=== PATIENT | male | born 1975 | race African-American/Black ===

== ENCOUNTER 2017-09-21 04:05 | Observation (INO) | payer MEDICAID ==
[~2017-09-21] VITALS: Ht 165.1 cm; Wt 76.8 kg
--- NOTE | ~2017-09-21 | HP ---
PATIENT: LB QUIJANO MEDICAL RECORD: [id number] ACCOUNT: [id number] LOCATION:[address] : 75 ADMISSION DATE: 09/21/17 HISTORY AND PHYSICAL EXAMINATION REASON FOR ADMISSION: Cough, congestion, and chest pain. HISTORY OF PRESENT ILLNESS: The patient is a 42-year-old -Bangl[place] male with no previous health issues. He states about 4 days ago while he was running he developed some pain in his anterior chest wall. This was followed by cough, congestion, and low-grade fever. He has had productive cough since that time of yellow-green sputum. He has some mild of breath on exertion. The pain lasted about 2 hours and went away, but now if he coughs or lifts he has pain in the left lateral chest wall as well. Denies hemoptysis, though he is a smoker. PAST MEDICAL HISTORY: Essentially negative. FAMILY HISTORY: Mother had a brain aneurysm and from hemorrhagic stroke. Father with hypertension. He is unsure of siblings' health. 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 He smokes marijuana recreationally. He said he has been moderate alcohol drinker; he will drink half a fifth at a time, but maybe once or twice a week. ALLERGIES: None known. MEDICATIONS: None. PAST SURGICAL HISTORY: Negative. REVIEW OF SYSTEMS: GENERAL: He has felt fatigued for the last 3 to 4 days with fever intermittently. He has had poor appetite. HEENT: No recent visual change, sinus congestion, sore throat, or hearing difficulty. RESPIRATORY: He has had cough productive of yellow-green sputum, no hemoptysis. He has had anterior chest wall pain on the left when he coughs. CARDIAC: He had one episode of exertional chest pain, none since. No prior history of exertional chest pain, hypertension, claudication, or edema. GASTROINTESTINAL: No nausea, vomiting, change in stools or blood per rectum. GENITOURINARY: He has had cystitis once in the past. No recent dysuria, nocturia, or SCDs. MUSCULOSKELETAL: Denies arthralgias or history of RA. GASTROINTESTINAL: No nausea, vomiting, change in stools or blood per rectum or history of hepatitis. INTEGUMENTARY: No rash or itching. PSYCHIATRIC: Denies depressed mood. PHYSICAL EXAMINATION: VITAL SIGNS: Blood pressure is 150/90, heart rate is 90 and regular, and temperature was 99 degrees Fahrenheit. HEENT: Normocephalic. Eyes are clear. NECK: Supple, without bruits or masses. CHEST: He has crackles in the bases. Faint expiratory wheezes in the upper HISTORY AND PHYSICAL [id number] LB QUIJANO lobes. HEART: Regular rate and rhythm without rub or murmur. ABDOMEN: Soft, nontender. GENITOURINARY: Deferred. EXTREMITIES: No CCE. SKIN: No obvious lesions. NEUROLOGIC: Oriented times 3. Cranial nerves intact. Gait is normal. LABORATORY DATA: White count 11,600 with normal differential and 13% monocytes. Flu A is positive. H&H is 16 and 43.5. Chemistry shows low potassium of 3.2, creatinine of 1.4, GFR 72, bilirubin of 1.84. Troponin 0.278 with normal CPK-MB and creatine kinase. Urinalysis, 4+ urobilinogen, otherwise negative. Urine drug screen is positive for THC. D-dimer is 2.17. IMAGING: Chest x-ray shows reticulonodular airspace disease bilaterally consistent with pneumonia or interstitial pulmonary edema. ASSESSMENT: 1. Probable community-acquired pneumonia. 2. Influenza A positivity. 3. Hypokalemia. 4. History of alcohol and drug use. 5. Atypical chest pain with elevated troponin. 6. Elevated D-dimer. PLAN: He is scheduled for CTA currently. We will culture blood and urine. Place on Levaquin, Tamiflu, and Zithromax at this time. Further workup pending clinical course. TRANSINT:[id number] Voice Confirmation ID: [id number] DOCUMENT ID: [id number] KAILEE MEEKS MD at 0749 CC: [id number] DICTATION DATE: 09/21/17817 BENEFITS CLERK: 09/21/17 1051 ADM IN [facility] [id number] [place] [address]
[2017-09-21 04:40] LABS: BASOPHILS 0.2 % (0-2); EOSINOPHILS 0.3 % (0-7); HEMATOCRIT 43.5 % (42.0-54.0); HEMOGLOBIN 16.2 g/dL (13.5-17.5); IMMATURE GRANULOCYTES 0.3 % (0-5); LYMPHOCYTES 21.9 % (15-50); MCH 31.5 pg (26.0-34.0); MCHC 37.2 g/dL (31.0-37.0); MCV 84.6 fL (80.0-100.0); MEAN PLATELET VOLUME 10.8 fL (7.4-10.4); MONOCYTES 13.4 % (2-11); NEUTROPHILS 63.9 % (40-80); PLATELET COUNT 214 10x3/uL (130-400); RBC 5.14 10x6/uL (4.20-6.10); RDW 12.1 % (11.5-14.5); WBC 11.6 10x3/uL (4.8-10.8)
[2017-09-21 05:06] LABS: ALBUMIN 3.1 g/dL (3.4-5.0); ALKALINE PHOSPHATASE 50 U/L (46-116); ALT (SGPT) 8 U/L (10-68); BILIRUBIN - TOTAL 1.84 mg/dL (0.2-1.3); CALC OSMOLALITY 279 mosm/kg (275-300); CALCIUM 8.8 mg/dL (8.5-10.1); CARBON DIOXIDE 26.5 mmol/L (21.0-32.0); CHLORIDE - SERUM 103 mmol/L (98-107); CREATININE - SERUM 1.4 mg/dL (0.6-1.3); GLUCOSE 93 mg/dL (74-106); POTASSIUM - SERUM 3.2 mmol/L (3.5-5.1); PROTEIN - SERUM 6.7 g/dL (6.4-8.2); SODIUM 140 mmol/L (136-145); UREA NITROGEN 15 mg/dL (7-18); eGFR NON AFRICAN AMERICAN 59 mL/min (90-120)
[2017-09-21 05:22] LABS: CKMB 0.6 U/L (0.0-3.6); CREATINE KINASE 159 UL (21-232)
[2017-09-21 05:24] LABS: TROPONIN-I 0.278 ng/mL (0.000-0.060)
[2017-09-21 05:32] LABS: APPEARANCE CLEAR (CLEAR); BILIRUBIN NEGATIVE (NEGATIVE); COLOR DK YELLOW (YELLOW); GLUCOSE NEGATIVE (NEGATIVE); KETONE NEGATIVE (NEGATIVE); NITRITE NEGATIVE (NEGATIVE); PROTEIN NEGATIVE (NEGATIVE); SPECIFIC GRAVITY 1.015 (1.005-1.020)
[2017-09-21 05:34] LABS: UDS - AMPHET NEGATIVE QUAL (NEGATIVE); UDS - BARB NEGATIVE QUAL (NEGATIVE); UDS - BENZO NEGATIVE QUAL (NEGATIVE); UDS - COCAINE NEGATIVE QUAL (NEGATIVE); UDS - OPIATE NEGATIVE QUAL (NEGATIVE); UDS - PCP NEGATIVE QUAL (NEGATIVE); UDS - THC POSITIVE QUAL (NEGATIVE)
[2017-09-21 11:04] LABS: CKMB 0.7 U/L (0.0-3.6); CREATINE KINASE 171 UL (21-232)
[2017-09-21 11:06] LABS: TROPONIN-I 0.253 ng/mL (0.000-0.060)
[2017-09-21 17:57] LABS: CKMB 0.8 U/L (0.0-3.6); CREATINE KINASE 143 UL (21-232)
[2017-09-21 17:59] LABS: TROPONIN-I 0.216 ng/mL (0.000-0.060)
[2017-09-21 19:31] VITALS: BP 155/83; Ht 165.1 cm; Wt 76.8 kg
[2017-09-21 23:42] LABS: CKMB 0.6 U/L (0.0-3.6); CREATINE KINASE 120 UL (21-232)
[2017-09-21 23:43] LABS: TROPONIN-I 0.253 ng/mL (0.000-0.060)
[2017-09-22 04:47] LABS: BASOPHILS 0.1 % (0-2); EOSINOPHILS 0.1 % (0-7); HEMATOCRIT 41.7 % (42.0-54.0); HEMOGLOBIN 15.2 g/dL (13.5-17.5); IMMATURE GRANULOCYTES 0.3 % (0-5); LYMPHOCYTES 21.5 % (15-50); MCH 30.8 pg (26.0-34.0); MCHC 36.5 g/dL (31.0-37.0); MCV 84.4 fL (80.0-100.0); MEAN PLATELET VOLUME 11.1 fL (7.4-10.4); MONOCYTES 14.6 % (2-11); NEUTROPHILS 63.4 % (40-80); PLATELET COUNT 220 10x3/uL (130-400); RBC 4.94 10x6/uL (4.20-6.10); RDW 12.1 % (11.5-14.5); WBC 9.3 10x3/uL (4.8-10.8)
[2017-09-22 05:11] LABS: ANION GAP 15.8 mmol/L (8-16); CALCIUM 7.9 mg/dL (8.5-10.1); CARBON DIOXIDE 21.6 mmol/L (21.0-32.0); CREATININE - SERUM 1.2 mg/dL (0.6-1.3); POTASSIUM - SERUM 3.4 mmol/L (3.5-5.1)
[2017-09-23 10:33] LABS: CALC OSMOLALITY 279 mosm/kg (275-300); CALCIUM 8.7 mg/dL (8.5-10.1); CARBON DIOXIDE 25.6 mmol/L (21.0-32.0); CHLORIDE - SERUM 107 mmol/L (98-107); GLUCOSE 88 mg/dL (74-106); POTASSIUM - SERUM 3.8 mmol/L (3.5-5.1); SODIUM 141 mmol/L (136-145); UREA NITROGEN 13 mg/dL (7-18); eGFR NON AFRICAN AMERICAN 87 mL/min (90-120)
[2017-09-23] MEDS ORDERED: TAMIFLU75 MG PO (14:57)
[2017-09-23] MEDS ORDERED: LEVAQUIN750 MG PO (14:57)
[2017-09-23] MEDS ORDERED: MUCINEX600 MG PO (14:58)
== END 2017-09-23 17:14 | disposition home or self-care (01) ==
LOC: D.ER 04:05 → D.M2 07:12 → OBSVTIME 07:12 → D.M2 09-23 17:14
PROVIDERS: Family Medicine
DX: J11.00 Influenza due to unidentified influenza virus with unspecified type of pneumonia (principal); E87.6 Hypokalemia

== ENCOUNTER 2018-01-01 06:43 | Inpatient (IN) | payer OTHER ==
[~2018-01-01] VITALS: Ht 165.1 cm; Wt 77.5 kg
--- NOTE | ~2018-01-01 | HEMODYNAMI ---
PATIENT:LB QUIJANO MEDICAL RECORD: [id number] : 75 LOCATION:[facility] D.2120 ADMISSION DATE: 01/01/18 Generatedon:01/04/20189:24 Patient name: LB QUIJANO Patient #: [id number] SSN: D OB: 1975 Date of study: 01/04/2018 Page: Of Hemodynamic Procedure Report Patient Data Patient Demographics Procedure consent was obtained First Name: LB Gender: Male Last Name: SAMM : 1975 [facility] Initial: C Age: 42 year(s) Patient #: [id number] Race: Black Additional ID: [id number] Contact details Address: [address] [place] [address] State: [place] City: [place] Zip code: [address] Past Medical History Allergies: No known allergies Admission Admission Data Admission Date: 01/01/2018 Admission Time: 12:18 Room #: D.2120 Height (in.): 66 BSA: 1.83 (m2) Height (cm.): 167.64 BMI: 26.15 (kg/m2) Weight (lbs.): 162 Weight (kg.): 73.48 Lab Results Lab Result Date: 01/04/2018 Lab Result Time: 0:00 Biochemistry Name Units Result Min Max BUN mg/dl 10 --(-*--)-- 7 18 Creatinine mg/dl 1.1 --(--*-)-- 0.6 1.3 CBC Name Units Result Min Max Hemoglobin g/dl 13.3 -*(----)-- 13.5 17.5 Procedure Procedure Types Cath Procedure Diagnostic Procedure C [facility] w/Coronaries Right Heart Right Heart Pharmacology Study Sedation Charges Moderate Sedation up to 15 minutes Procedure Description Procedure Date Procedure Date: 01/04/2018 Procedure Start Time: 8:54 Procedure End Time: 9:18 Procedure Staff Name Function Ronnell Harris MD Performing Physician Manny Gustafson RT Monitor Seb Peterson RN Nurse Lazara Hand RT Scrub Procedure Data Cath Procedure Fluoroscopy Diagnostic fluoroscopy Total fluoroscopy Time: 3.4 time: 3.4 min min Diagnostic fluoroscopy Total fluoroscopy dose: 382 dose: 382 mGy mGy Contrast Material Contrast Material Type Amount (ml) Isovue 300 51 Entry Location Entry Primary Successful Side Size Upsize Upsize Entry Closure Evans ccessful Closure Location (Fr) 1 (Fr) 2 (Fr) Remarks Device Remarks Femoral Right 5 Fr Exoseal artery Femoral Right 7 Fr Manual vein Short Compression Estimated blood loss: 5 ml Diagnostic catheters Device Type Used For End Catheter Placement MULTIPACK JL 4.0 5Fr Procedure catheter MULTIPACK 3DRC 5Fr Procedure catheter MULTIPACK Pigtail 5 Fr Procedure catheter SWAN 7Fr Thermodilution Procedure cather (131F7P) Procedure Complications No complications Procedure Medications Medication Administration Route Dosage 0.9% NaCl I.V. 100 ml/hr Oxygen etCO2 Nasal cannula 2 l/min Heparin Flush Bag added to field 2 bags (1000units/500ml NS) Lidocaine 2% added to field 20 Versed I.V. 1 mg Fentanyl I.V. 50 mcg Fentanyl I.V. 50 mcg Versed I.V. 1 mg Adenosine IV 3mg/ml I.V. 50 mcg/kg/min Adenosine IV 3mg/ml I.V. 100 mcg/kg/min Adenosine IV 3mg/ml I.V. 200 mcg/kg/min Adenosine IV 3mg/ml I.V. 200 mcg/kg/min Hemodynamics Rest HGB: 13.3 (g/dl) Heart Rate: 98 (bpm) Pressure Samples Time Site Value (mmHg) Purpose Heart Use Rate(bpm) 9:01 LV 113/10,26 Snapshot 96 9:04 PA 78/42(56) Snapshot 97 9:06 PA 79/38(55) Snapshot 97 9:08 PA 80/42(59) Snapshot 99 9:09 PA 75/36(52) Snapshot 96 9:10 PA 84/43(62) Snapshot 99 9:11 RV 83/14,25 Snapshot 100 9:12 RA 23/20(17) Snapshot 97 Gradients Valve Time Site Site Mean SEP/DFP Peak To Heart Use 1 2 (mmHg) (sec/min) Peak Rate (mmHg) (bpm) Aortic 9:01 LV AO 114 Snapshots Pre Cath Intra NCS Post Cath Vital Signs Time Heart Resp SPO2 etCO2 NIBP (mmHg) Rhythm Pain Sedation Rate (ipm) (%) (mmHg) Status Level (bpm) 8:35:11 99 24 0 149/75(110) NSR 0 (11) 10(A) , No pain 8:39:49 97 46 96 24.6 140/78(109) NSR 0 (11) 10(A) , No pain 8:44:28 100 37 97 9.7 139/105(134) NSR 0 (11) 10(A) , No pain 8:49:09 97 38 91 16.4 151/85(119) NSR 0 (11) 10(A) , No pain 8:53:51 97 22 96 17.2 142/78(116) NSR 0 (11) 10(A) , No pain 8:58:32 97 40 100 14.9 149/82(125) NSR 0 (11) 9(A) , No pain 9:03:08 107 34 100 8.9 130/88(107) NSR 0 (11) 9(A) , No pain 9:07:41 99 34 100 12.7 135/92(117) NSR 0 (11) 9(A) , No pain 9:12:20 99 19 100 14.9 136/80(108) NSR 0 (11) 10(A) , No pain 9:16:54 100 44 100 11.9 148/87(119) NSR 0 (11) 10(A) , No pain Medications Time Medication Route Dose Verified Delivered Reason Notes Effectiveness by by 8:41:56 0.9% NaCl I.V. 100 ml/hr Seb Seb Per Lorigan Lorigan physician RN RN 8:42:06 Oxygen etCO2 2 l/min Seb Seb Per Nasal Lorigan Lorigan physician cannula RN RN 8:42:20 Heparin Flush added 2 bags Seb Seb used for Bag to Lorigan Lorigan procedure (1000units/500ml field RN RN NS) 8:42:30 Lidocaine 2% added 20ml vial Seb Seb for local to Lorigan Lorigan anesthetic field RN RN 8:49:34 Versed I.V. 1 mg Seb Seb for Lorigan Lorigan sedation RN RN 8:54:25 Fentanyl I.V. 50 mcg Seb Seb for Lorigan Lorigan sedation RN RN 9:01:50 Fentanyl I.V. 50 mcg Seb Seb for Lorigan Lorsabrina sedation RN RN 9:01:58 Versed I.V. 1 mg Seb Seb for Lorigan Nicholas sedation RN RN 9:06:00 Adenosine IV I.V. 50 Seb Seb Per 3mg/ml mcg/kg/min Nicholas Peterson physician RN RN 9:07:05 Adenosine IV I.V. 100 Seb Seb Per 3mg/ml mcg/kg/min Nicholas Peterson physician RN RN 9:08:47 Adenosine IV I.V. 200 Seb Seb Per 3mg/ml mcg/kg/min Nicholas Peterson physician RN RN 9:10:57 Adenosine IV I.V. 200 Seb Seb to sharp's 3mg/ml mcg/kg/min Nicholas Peterson RN tag press operator Log Time Note 8:05:30 Signed procedure consent form obtained from patient. 8:05:35 Time tracking: Regular hours (M-F 7:00 - 5:00) 8:05:40 Plan of Care:Hemodynamics will remain stable., Cardiac rhythm will remain stable., Comfort level will be maintained., Respiratory function will remain adequate., Patient/ family verbilizes understanding of procedure., Procedure tolerated without complication., Recovers from procedure without complications.. 8:06:51 Lab Result : Hemoglobin 13.3 g/dl 8:06:51 Lab Result : Creatinine 1.1 mg/dl 8:06:51 Lab Result : BUN 10 mg/dl 8:08:02 Seb Peterson RN sent for patient. Start room use. 8:30:09 Patient received from Med II to CCL 1 Alert and oriented. Tansferred to table in Supine position. 8:30:11 Correct patient and procedure confirmed by team. 8:30:11 Warm blankets applied, and chelle hugger turned on for patient comfort. 8:30:12 ECG and BP/O2 sat monitors applied to patient. 8:30:20 H&P Date Dictated: 01/03/2018 Within 30 days and on chart.. 8:30:21 Pre-procedure instructions explained to patient. 8:30:22 Pre-op teaching completed and patient verbalized understanding. 8:30:23 Family in patients room. 8:30:25 Patient NPO since Midnight. 8:30:33 Patient allergic to No known allergies 8:34:17 Vital chart was started 8:34:21 Baseline sample Acquired. 8:34:29 Rhythm: sinus tachycardia 8:34:33 Full Disclosure recording started 8:34:52 Was the patient premedicated? Yes 8:34:54 Is the patient allergic to Iodine/contrast media? No. 8:35:01 ACC The patient was administered the following blood thiners within the last 24 hours: ACCPlavix 8:35:04 Patient diabetic? No. 8:35:09 Snore? Yes 8:35:10 Sleep apnea? No 8:35:12 Deviated septum? No 8:35:18 Dentures? No ? 8:35:24 Patient pain scale 0/10 ?. 8:35:43 IV patent on arrival in right hand with 0.9% NaCl at [facility]. 8:36:05 Lab results completed and on chart. 8:36:26 Right groin area was prepped with chlora-prep and draped in sterile fashion 8:36:28 Alarms reviewed by R. N. 8:36:29 Sharps counted by scrub and verified by R.N. 8:36:33 Physician paged 8:39:00 Patient Height : 66 inches 8:39:08 Patient Weight : 162 lbs 8:41:56 0.9% NaCl 100 ml/hr I.V. was administered by Seb Peterson RN; Per physician; 8:42:06 Oxygen 2 l/min etCO2 Nasal cannula was administered by Seb Peterson RN; Per physician; 8:42:20 Heparin Flush Bag (1000units/500ml NS) 2 bags added to field was administered by Seb Peterson RN; used for procedure; 8:42:30 Lidocaine 2% 20ml vial added to field was administered by Seb Peterson RN; for local anesthetic; 8:42:41 Use device set Femoral Dx 8:42:42 ACIST Syringe (22436) opened to sterile field. 8:42:43 Bag Decanter () opened to sterile field. 8:42:59 ACIST Hand Control (39755) opened to sterile field. 8:43:00 ACIST Manifold (69735) opened to sterile field. 8:43:03 Tegaderm 4 x 4 (1626W) opened to sterile field. 8:43:09 Medline Cath Pack ([id number]) opened to sterile field. 8:43:13 PERCUTANEOUS ENTRY 19GA needle opened to sterile field. 8:43:17 SHEATH Prelude 5Fr 0.035 (GSV-9Y-49-035) opened to sterile field. 8:43:18 DIAGNOSTIC WIRE .035 260cm J wire (796713) opened to sterile field. 8:43:27 SHEATH 7FR [place] (GQC837) opened to sterile field. 8:43:42 DIAGNOSTIC Multipack 5Fr catheter set (BG7722) opened to sterile field. 8:48:26 Zero performed for pressure channel P1 8:48:32 Zero performed for pressure channel P1 8:49:06 Physician arrived 8:49:07 Final Timeout: patient, procedure, and site verified with staff and physician. All members of the team are in agreement. 8:49:07 --------ALL STOP TIME OUT------ 8:49:09 Right groin site verified by team. 8:49:12 Physical assessment completed. ASA score P 2 - A patient with mild systemic disease as per Ronnell Harris MD. 8:49:15 Sedation plan: IV Moderate Sedation Medication:Versed, Fentanyl 8:49:34 Versed 1 mg I.V. was administered by Seb Peterson RN; for sedation; 8:54:25 Fentanyl 50 mcg I.V. was administered by Seb Peterson RN; for sedation; 8:54:38 Procedure started. 8:54:41 Local anesthetic to right femoral artery with Lidocaine 2% by Ronnell Harris MD.INITIAL ACCESS ONLY 8:55:21 A 5 Fr sheath was inserted into the Right Femoral artery 8:56:41 A 7 Fr Short sheath was inserted into the Right Femoral vein 8:56:46 A MULTIPACK JL 4.0 5Fr catheter was advanced over the wire and used for Procedure. 8:58:04 LCA angiography performed. 8:58:29 Catheter exchanged over wire. 8:59:11 A MULTIPACK 3DRC 5Fr catheter was advanced over the wire and used for Procedure. 8:59:34 RCA angiography performed. 9:00:51 Catheter exchanged over wire. 9:01:00 A MULTIPACK Pigtail 5 Fr catheter was advanced over the wire and used for Procedure. 9:01:23 LV gram done using ROCKWELL 9:01:26 Injector settings: Ml/sec: 10, Volume: 20, 9::35 EF : 60 % 9::37 Catheter removed. 9::50 Fentanyl 50 mcg I.V. was administered by Seb Peterson RN; for sedation; ::58 Versed 1 mg I.V. was administered by Seb Peterson RN; for sedation; 9:03:10 A SWAN 7Fr Thermodilution cather (131F7P) was advanced over the wire and used for Procedure. 9:06:00 Adenosine IV 3mg/ml 50 mcg/kg/min I.V. was administered by Seb Peterson RN; Per physician; ::58 Timer 1 started at 9:05 AM, stopped at 9:06 AM, duration 00:01:31 sec. 9:07:05 Adenosine IV 3mg/ml 100 mcg/kg/min I.V. was administered by Seb Peterson RN; Per physician; 9::34 Timer 1 started at 9:06 AM, stopped at 9:08 AM, duration 00:01:34 sec. 9:08:47 Adenosine IV 3mg/ml 200 mcg/kg/min I.V. was administered by Seb Peterson RN; Per physician; 9::37 Timer 1 started at 9:08 AM, stopped at 9:10 AM, duration 00:02:01 sec. 9:10:57 Adenosine IV 3mg/ml 200 mcg/kg/min I.V. was administered by Seb Peterson RN; to sharp's; 9:12:18 Catheter removed. 9:12:35 EXOSEAL 5Fr (EX500) opened to sterile field. 9:12:56 Sheath removed intact; hemostasis achieved with Exoseal to the Right Femoral artery. 9:13:03 Sheath removed intact; hemostasis achieved with Manual Compression to the Right Femoral vein. 9:13:05 Procedure ended.(Physican Out) 9:13:44 Fluoroscopy time 03.40 minutes. 9:13:48 Fluoroscopy dose: 382 mGy 9:13:48 Flurop Dose total: 382 9:14:16 Contrast amount:Isovue 300 51ml. 9:14:18 Sharps counted by scrub and verified by R.N. 9:14:19 Insertion/operative site no bleeding no hematoma. 9:14:22 Post-op/insertion site Right Femoral artery dressed using a 4 x 4 and Tegaderm. 9:14:25 Post-op/insertion site Right Femoral vein dressed using a 4 x 4 and Tegaderm. 9:14:29 Post right femoral artery:stable, soft, clean and dry 9:14:33 Post right femoral vein:stable, soft, clean and dry 9:14:36 Post Procedure Pulses reassessed and unchanged 9:14:40 Post-procedure physical assessment completed. ASA score P 2 - A patient with mild systemic disease as per Ronnell Harris MD. 9:14:42 Post procedure rhythm: unchanged. 9:15:19 Estimated blood loss: 5 ml 9:15:21 Patient needs reinforcement of post procedure teaching. 9:15:21 Post procedure instruction explained to patient.Patient verbalizes understanding. 9:15:58 Procedure type changed to Cath procedure, Diagnostic procedure, LHC, LHC w/Coronaries, Right Heart, Right Heart Pharmacology Study, Sedation Charges, Moderate Sedation up to 15 minutes 9:18:24 Procedure and supply charges have been captured, reviewed, submitted and are correct. 9:18:26 Procedure Complication : No complications 9:18:28 Vital chart was stopped 9:18:29 See physician's report for complete and final results. 9:18:30 Report given to PCU. 9:18:32 Patient transfered to PCU with Stretcher. 9:18:39 Full Disclosure recording stopped 9:18:39 Procedure ended. 9:18:49 End room use (Document Last) 9:23:33 FEMSTOP Gold ([id number]) opened to sterile field. 9:23:45 Femstop placed over the right femoral artery at 155 mmHg. Hemostasis achieved. Device Usage Item Name Manufacture Quantity Catalog Number Hospital Part Current M inimal Lot# / Charge Number Stock Stock Serial# Code ACIST Syringe Acist 1 72775 145876 709383 [id number] 2 0 (45080) Medical [employer] Bag Decanter Microtek 1 782065 06787 [id number] 5 () Medical Inc. ACIST Hand Acist 1 83697 729910 924179 462754 5 Control (12849) [employer] Inc ACIST Manifold Acist 1 03602 458005 150169 350997 5 (51765) Medical Systems Inc Tegaderm 4 x 4 3M 1 1626W 887542 565762 856415 5 (1626W) Medline Cath Cardinal 1 [id number] 771930 18243 806817 5 Pack Health ([id number]) PERCUTANEOUS Cook Medical 1 I79727 184930 477596 5 ENTRY 19GA needle SHEATH Prelude Merit 1 FQH-2M-66-035 580274 078550 266373 5 5Fr 0.035 Medical (ORI-7Z-49-035) DIAGNOSTIC WIRE [place] 1 571626 452088 777398 944865 3 0 .035 260cm J wire (696502) SHEATH 7FR Terumo 1 ZCD910 658238 430837 283848 5 [place] (BEU713) MULTIPACK JL Cardinal 1 807977 5 4.0 5Fr Health catheter MULTIPACK 3DRC Cardinal 1 532645 5 5Fr catheter Health DIAGNOSTIC Cardinal 1 IY6032 297429 07697 476129 3 0 Multipack 5Fr Health catheter set (VT0155) MULTIPACK Cardinal 1 205281 5 Pigtail 5 Fr Health catheter SWAN 7Fr Jauregui 1 131F7P 456654 92655 187881 3 Thermodilution Lifesciences cather (131F7P) EXOSEAL 5Fr Cardinal 1 EX500 722629 514757 107947 1 0 (EX500) Health FEMSTOP Gold [facility] [place] 1 I16979 775609 800429 797733 5 ([id number]) Signature Audit Heath Stage Time Signature Unsigned Intra-Procedure 01/04/2018 Manny Gustafson RT(R) 9:19:06 AM RT(R) 01/04/2018 9:23:29 AM Intra-Procedure 01/04/2018 Manny Gustafson 9:24:09 AM RT(R) Signatures Monitor : Manny Gustafson RT Signature : Date : Time : [facility] [address] [facility], [facility]901
--- NOTE | ~2018-01-01 | OP ---
PATIENT NAME: LB QUIJANO MEDICAL RECORD: [id number] :75 LOCATION:D.M2 D.0 ADMISSION DATE:01/01/18 SURGEON: SÁNCHEZ PIZARRO MD DATE OF OPERATION: 01/04/2018 PROCEDURE: Left and right heart catheterization, right femoral artery and vein approach. CATHETERS: Used Como-Marie on the venous side; Thuy JL4, JR4, and pigtail on the right. The procedure was well tolerated. The patient was returned to daniels, sheath removed. ExoSeal device was placed on the arterial side, manual pressure on the venous side. FINDINGS: Left heart ventriculography in 30-degree ROCKWELL view, hyperdynamic ventricle. Overall, LV function hyperdynamic, 60% or better. CORONARY ANATOMY: LEFT MAIN: Left main is free of disease. LAD: Free of disease in the diagonal system. CIRCUMFLEX: Free of disease in the marginal system. RIGHT CORONARY ARTERY: Dominant artery, gives rise to PDA, free of disease. RIGHT HEART CATHETERIZATION: Under fluoroscopic guidance, the Como-Marie catheter was placed in the PA. After initial pressures were measured at 84/43 mmHg, IV adenosine was infused increasing concentrations with a final infusion at 200 mcg/kg per minute. This showed decrease with PA pressure at 75/36, which is 10%, 9 mm reduction in PA pressures. RV pressure 83/14, RA pressure was 23 mmHg (these were done after adenosine infusion). TRANSINT:[id number] Voice Confirmation ID: [id number] DOCUMENT ID: [id number] SÁNCHEZ PIZARRO MD at 1337 CC: [id number] DICTATION DATE: 01/04/18920 MACHINE BOOKKEEPER: 01/04/18 1156 ADM IN [facility] [address] [place] [address]
--- NOTE | ~2018-01-01 | CN ---
PATIENT NAME:LB QUIJANO MEDICAL RECORD: [id number] : 75 LOCATION:[facility] D.2120 ADMIT DATE: 01/01/18 ACCOUNT: [id number] CONSULTING PHYSICIAN: SÁNCHEZ PIZARRO MD REFERRING PHYSICIAN: LB NEWBY MD DATE OF CONSULTATION: 01/02/2018 HISTORY OF PRESENT ILLNESS: A 42-year-old gentleman admitted with volume overload, chest tightness, pressure with exertion. Found to have marked PA pressures, ground-glass opacities on CT of the chest. Currently worked up for pulmonary hypertension. We are asked to see him concerning his cardiovascular status. PAST MEDICAL HISTORY: Includes history of pneumonitis back in September of this year. ALLERGIES: None known. MEDICATIONS: None chronically. 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 He quit smoking back in September. Drinks occasionally. Recreational marijuana use. Remote history of illicit drug use. REVIEW OF SYSTEMS: The patient reports easy bruising but reports no swollen glands. The patient reports no fever, no night sweats, no significant weight gain, no significant weight loss. No significant exercise tolerance. The patient reports no dry eyes, no irritation, no vision change. Patient reports no difficulty hearing and no ear pain. Patient reports no frequent nose bleeds or nose and sinus problems. Patient reports on arm pain on exertion. No shortness of breath while lying down. No history of heart murmur. Patient reports no cough, no wheezing or coughing up blood. Patient reports no abdominal pain, no vomiting. Normal appetite. No diarrhea and not vomiting blood. No nausea and no constipation. Patient reports no incontinence. No difficulty urinating. No hematuria. No increased frequency. Patient reports no muscle aches. No weakness, no arthralgias, no back pain. No swelling of the extremities. Patient reports no abnormal mole, no jaundice, no rashes. Reports no loss of consciousness. No weakness and no numbness. No seizures, dizziness, or headaches. The patient reports no depression, no sleep disturbance, feeling safe in a relationship and no alcohol abuse. Patient reports on fatigue. Reports no runny nose or sinus pressure. No itching, no hives, and no frequent sneezing. PHYSICAL EXAMINATION: GENERAL: Pleasant gentleman, in no acute distress, comfortable at rest at this point. VITAL SIGNS: Blood pressure 138/73, pulse 90 and regular. HEENT: Normocephalic, atraumatic. NECK: No bruits noted. HEART: Regular. A II-III/ systolic ejection murmur. Loud P2. LUNGS: Fairly good air excursion. ABDOMEN: Soft, nontender. EXTREMITIES: Pulses are 2+. There is no edema. IMPRESSION: Pulmonary hypertension. I agree with current workup. Agree with the right heart cath at this point in time due to pulmonary vascular reactivity. CONSULT REPORT [id number] LB QUIJANO Further recommendations based on the above. This can be done as an outpatient if the patient desires to go home over the weekend. TRANSINT:[id number] Voice Confirmation ID: [id number] DOCUMENT ID: [id number] SÁNCHEZ PIZARRO MD at 1132 CC: [id number] DICTATION DATE: 01/02/18 0957 FELLER MACHINE OPERATOR: 01/02/18 1407 ADM IN [facility] [address] [place] [address]
[~2018-01-01 06:43] MED LIST: LEVAQUIN750 MG PO; MUCINEX600 MG PO; TAMIFLU75 MG PO
[2018-01-01 07:18] LABS: BASOPHILS 0.4 % (0-2); EOSINOPHILS 0.9 % (0-7); HEMATOCRIT 43.1 % (42.0-54.0); HEMOGLOBIN 15.2 g/dL (13.5-17.5); IMMATURE GRANULOCYTES 0.1 % (0-5); LYMPHOCYTES 24.9 % (15-50); MCHC 35.3 g/dL (31.0-37.0); MCV 87.8 fL (80.0-100.0); MEAN PLATELET VOLUME 10.2 fL (7.4-10.4); MONOCYTES 10.9 % (2-11); NEUTROPHILS 62.8 % (40-80); RBC 4.91 10x6/uL (4.20-6.10); RDW 13.1 % (11.5-14.5); WBC 7.9 10x3/uL (4.8-10.8)
[2018-01-01 07:19] LABS: PLATELET COUNT 293 10x3/uL (130-400)
[2018-01-01 07:31] LABS: ALBUMIN 2.5 g/dL (3.4-5.0); ANION GAP 9.4 mmol/L (8-16); BILIRUBIN - TOTAL 1.2 mg/dL (0.2-1.3); CALCIUM 8.4 mg/dL (8.5-10.1); CARBON DIOXIDE 24.7 mmol/L (21.0-32.0); CREATININE - SERUM 1.3 mg/dL (0.6-1.3); POTASSIUM - SERUM 4.1 mmol/L (3.5-5.1); PROTEIN - SERUM 6.1 g/dL (6.4-8.2)
[2018-01-01 07:35] LABS: TROPONIN-I 0.023 ng/mL (0.000-0.060)
[2018-01-01 08:09] LABS: MAGNESIUM - SERUM 1.9 mg/dL (1.8-2.4)
[2018-01-01 13:56] VITALS: BP 147/72; BMI 41.6
[2018-01-01 15:20] VITALS: BP 100/84
[2018-01-01 15:32] LABS: APPEARANCE CLEAR (CLEAR); BILIRUBIN NEGATIVE (NEGATIVE); COLOR YELLOW (YELLOW); GLUCOSE NEGATIVE (NEGATIVE); KETONE NEGATIVE (NEGATIVE); NITRITE NEGATIVE (NEGATIVE); PROTEIN NEGATIVE (NEGATIVE); SPECIFIC GRAVITY 1.015 (1.005-1.020); UROBILINOGEN NORMAL (NORMAL)
[2018-01-01 15:35] LABS: UDS - AMPHET NEGATIVE QUAL (NEGATIVE); UDS - BARB NEGATIVE QUAL (NEGATIVE); UDS - BENZO NEGATIVE QUAL (NEGATIVE); UDS - COCAINE NEGATIVE QUAL (NEGATIVE); UDS - OPIATE POSITIVE QUAL (NEGATIVE); UDS - PCP NEGATIVE QUAL (NEGATIVE); UDS - THC POSITIVE QUAL (NEGATIVE)
[2018-01-01 19:00] VITALS: BP 111/60
[2018-01-02] VITALS: BP 126/69
[2018-01-02 04:00] VITALS: BP 121/72
[2018-01-02 08:12] LABS: CALCIUM 7.7 mg/dL (8.5-10.1); CARBON DIOXIDE 24.4 mmol/L (21.0-32.0); CREATININE - SERUM 1.3 mg/dL (0.6-1.3)
[2018-01-02 08:14] LABS: POTASSIUM - SERUM 3.4 mmol/L (3.5-5.1)
[2018-01-02 08:54] VITALS: BP 138/73
[2018-01-02 12:33] VITALS: BP 129/68
[2018-01-02 13:38] VITALS: Ht 165.1 cm; Wt 77.5 kg
[2018-01-02 16:34] VITALS: BP 128/69
[2018-01-02 20:06] VITALS: BP 137/76
[2018-01-03] VITALS (7 sets, daily range): BP systolic 120–147; BP diastolic 58–86
[2018-01-03 10:28] LABS: ANION GAP 14.5 mmol/L (8-16); CALCIUM 8.1 mg/dL (8.5-10.1); CARBON DIOXIDE 23.2 mmol/L (21.0-32.0); CREATININE - SERUM 1.3 mg/dL (0.6-1.3); POTASSIUM - SERUM 3.7 mmol/L (3.5-5.1)
[2018-01-03 10:39] LABS: BASOPHILS 0.3 % (0-2); HEMATOCRIT 37.6 % (42.0-54.0); HEMOGLOBIN 12.9 g/dL (13.5-17.5); IMMATURE GRANULOCYTES 0.2 % (0-5); LYMPHOCYTES 23.4 % (15-50); MCH 30.7 pg (26.0-34.0); MCHC 34.3 g/dL (31.0-37.0); MCV 89.5 fL (80.0-100.0); MEAN PLATELET VOLUME 10.8 fL (7.4-10.4); MONOCYTES 14.1 % (2-11); PLATELET COUNT 261 10x3/uL (130-400); RDW 13.4 % (11.5-14.5); WBC 6.5 10x3/uL (4.8-10.8)
[2018-01-03 18:08] LABS: BASOPHILS 0.3 % (0-2); EOSINOPHILS 3.4 % (0-7); HEMATOCRIT 41.3 % (42.0-54.0); HEMOGLOBIN 14.2 g/dL (13.5-17.5); IMMATURE GRANULOCYTES 0.2 % (0-5); LYMPHOCYTES 19.8 % (15-50); MCH 30.7 pg (26.0-34.0); MCHC 34.4 g/dL (31.0-37.0); MCV 89.2 fL (80.0-100.0); MEAN PLATELET VOLUME 10.3 fL (7.4-10.4); MONOCYTES 13.7 % (2-11); NEUTROPHILS 62.6 % (40-80); PLATELET COUNT 236 10x3/uL (130-400); RBC 4.63 10x6/uL (4.20-6.10); RDW 13.3 % (11.5-14.5); WBC 6.5 10x3/uL (4.8-10.8)
[2018-01-03 18:20] LABS: CALC OSMOLALITY 276 mosm/kg (275-300); CALCIUM 8.1 mg/dL (8.5-10.1); CARBON DIOXIDE 25.3 mmol/L (21.0-32.0); CHLORIDE - SERUM 107 mmol/L (98-107); CREATININE - SERUM 1.1 mg/dL (0.6-1.3); GLUCOSE 82 mg/dL (74-106); POTASSIUM - SERUM 3.8 mmol/L (3.5-5.1); SODIUM 140 mmol/L (136-145); UREA NITROGEN 11 mg/dL (7-18); eGFR NON AFRICAN AMERICAN 78 mL/min (90-120)
[2018-01-04 04:00] VITALS: BP 158/83
[2018-01-04 05:37] LABS: BASOPHILS 0.3 % (0-2); EOSINOPHILS 2.4 % (0-7); HEMATOCRIT 38.8 % (42.0-54.0); HEMOGLOBIN 13.3 g/dL (13.5-17.5); IMMATURE GRANULOCYTES 0.3 % (0-5); LYMPHOCYTES 14.6 % (15-50); MCH 30.4 pg (26.0-34.0); MCHC 34.3 g/dL (31.0-37.0); MCV 88.6 fL (80.0-100.0); MEAN PLATELET VOLUME 10.4 fL (7.4-10.4); MONOCYTES 14.1 % (2-11); NEUTROPHILS 68.3 % (40-80); PLATELET COUNT 236 10x3/uL (130-400); RBC 4.38 10x6/uL (4.20-6.10); RDW 13.3 % (11.5-14.5)
[2018-01-04 06:04] LABS: ALBUMIN 2.2 g/dL (3.4-5.0); ALKALINE PHOSPHATASE 50 U/L (46-116); ALT (SGPT) 35 U/L (10-68); BILIRUBIN - TOTAL 0.98 mg/dL (0.2-1.3); CALC OSMOLALITY 274 mosm/kg (275-300); CARBON DIOXIDE 23.4 mmol/L (21.0-32.0); CHLORIDE - SERUM 107 mmol/L (98-107); CREATININE - SERUM 1.1 mg/dL (0.6-1.3); GLUCOSE 94 mg/dL (74-106); POTASSIUM - SERUM 3.9 mmol/L (3.5-5.1); PROTEIN - SERUM 5.9 g/dL (6.4-8.2); SODIUM 138 mmol/L (136-145); UREA NITROGEN 10 mg/dL (7-18); eGFR NON AFRICAN AMERICAN 78 mL/min (90-120)
[2018-01-04 08:48] VITALS: BP 144/65
[2018-01-04 16:40] VITALS: BP 132/72
[2018-01-04 19:00] VITALS: BP 139/73
[2018-01-05 04:00] VITALS: BP 138/80
[2018-01-05 05:44] LABS: BASOPHILS 0.3 % (0-2); EOSINOPHILS 1.6 % (0-7); HEMATOCRIT 38.9 % (42.0-54.0); HEMOGLOBIN 13.2 g/dL (13.5-17.5); IMMATURE GRANULOCYTES 0.1 % (0-5); LYMPHOCYTES 21.5 % (15-50); MCH 30.2 pg (26.0-34.0); MCHC 33.9 g/dL (31.0-37.0); MEAN PLATELET VOLUME 10.6 fL (7.4-10.4); MONOCYTES 14.3 % (2-11); NEUTROPHILS 62.2 % (40-80); PLATELET COUNT 229 10x3/uL (130-400); RBC 4.37 10x6/uL (4.20-6.10); RDW 13.1 % (11.5-14.5); WBC 7.4 10x3/uL (4.8-10.8)
[2018-01-05 06:11] LABS: ALBUMIN 2.2 g/dL (3.4-5.0); ANION GAP 14.9 mmol/L (8-16); BILIRUBIN - TOTAL 1.25 mg/dL (0.2-1.3); CALCIUM 8.3 mg/dL (8.5-10.1); CARBON DIOXIDE 22.5 mmol/L (21.0-32.0); CREATININE - SERUM 1.2 mg/dL (0.6-1.3); POTASSIUM - SERUM 4.4 mmol/L (3.5-5.1)
[2018-01-05 09:13] VITALS: BP 164/81
[2018-01-05 11:58] VITALS: BP 144/85
[2018-01-05 16:16] LABS: ANCA - ANTIMYELOPEROXIDASE <9.0 U/mL (0.0-9.0); ANCA - ANTIPROTEINASE 3 <3.5 U/mL (0.0-3.5); ANCA - ATYPICAL <1:20 titer (Neg:<1:20); ANCA - CYTOPLASMIC <1:20 titer (Neg:<1:20); ANCA - PERINUCLEAR <1:20 titer (Neg:<1:20)
[2018-01-05 16:47] VITALS: BP 135/85
[2018-01-05 20:00] VITALS: BP 146/71
[2018-01-06] VITALS: BP 127/69
[2018-01-06 04:00] VITALS: BP 118/62
[2018-01-06 05:16] LABS: BASOPHILS 0.1 % (0-2); EOSINOPHILS 1.4 % (0-7); HEMOGLOBIN 12.6 g/dL (13.5-17.5); IMMATURE GRANULOCYTES 0.1 % (0-5); LYMPHOCYTES 22.6 % (15-50); MCH 30.2 pg (26.0-34.0); MCHC 34.1 g/dL (31.0-37.0); MCV 88.7 fL (80.0-100.0); MEAN PLATELET VOLUME 10.4 fL (7.4-10.4); MONOCYTES 13.3 % (2-11); NEUTROPHILS 62.5 % (40-80); PLATELET COUNT 246 10x3/uL (130-400); RBC 4.17 10x6/uL (4.20-6.10); RDW 12.9 % (11.5-14.5); WBC 7.1 10x3/uL (4.8-10.8)
[2018-01-06 05:28] LABS: APTT 37.2 SECONDS (22.8-39.4); INR 1.22 (0.85-1.17); PROTIME 14.9 SECONDS (11.6-15.0)
[2018-01-06 05:40] LABS: ALBUMIN 1.9 g/dL (3.4-5.0); BILIRUBIN - TOTAL 0.8 mg/dL (0.2-1.3); CALCIUM 8.1 mg/dL (8.5-10.1); CARBON DIOXIDE 24.3 mmol/L (21.0-32.0); CREATININE - SERUM 1.2 mg/dL (0.6-1.3); POTASSIUM - SERUM 4.3 mmol/L (3.5-5.1); PROTEIN - SERUM 5.5 g/dL (6.4-8.2)
[2018-01-06 09:16] VITALS: BP 141/75
[2018-01-06 12:54] VITALS: BP 140/74
[2018-01-06 17:05] VITALS: BP 166/82
[2018-01-06 17:10] LABS: EOS BF 4 %; MACROPHAGES BF 60 %; MESOTHELIALS BF 9 %; NEUT - BF 12 %
[2018-01-06 19:00] VITALS: BP 137/69
[2018-01-07 04:00] VITALS: BP 115/60
[2018-01-07 06:09] LABS: BASOPHILS 0.4 % (0-2); EOSINOPHILS 0.8 % (0-7); HEMATOCRIT 38.2 % (42.0-54.0); HEMOGLOBIN 13.1 g/dL (13.5-17.5); IMMATURE GRANULOCYTES 0.2 % (0-5); LYMPHOCYTES 21.8 % (15-50); MCH 30.4 pg (26.0-34.0); MCHC 34.3 g/dL (31.0-37.0); MCV 88.6 fL (80.0-100.0); MEAN PLATELET VOLUME 10.5 fL (7.4-10.4); MONOCYTES 12.1 % (2-11); NEUTROPHILS 64.7 % (40-80); PLATELET COUNT 271 10x3/uL (130-400); RBC 4.31 10x6/uL (4.20-6.10); RDW 12.8 % (11.5-14.5)
[2018-01-07 06:10] LABS: WBC 9.1 10x3/uL (4.8-10.8)
[2018-01-07 06:26] LABS: ALBUMIN 2.1 g/dL (3.4-5.0); ANION GAP 11.3 mmol/L (8-16); BILIRUBIN - TOTAL 1.4 mg/dL (0.2-1.3); CALCIUM 8.2 mg/dL (8.5-10.1); CARBON DIOXIDE 24.9 mmol/L (21.0-32.0); CREATININE - SERUM 1.2 mg/dL (0.6-1.3); POTASSIUM - SERUM 4.2 mmol/L (3.5-5.1); PROTEIN - SERUM 5.9 g/dL (6.4-8.2)
[2018-01-07 09:44] VITALS: BP 133/78
[2018-01-07 13:07] VITALS: BP 118/61
[2018-01-07 16:20] VITALS: BP 129/80
[2018-01-07 18:11] LABS: ACID FAST SMEAR Negative (()); AFB SPECIMEN PROCESSING Concentration (())
[2018-01-07] MEDS ORDERED: LEVAQUIN500 MG PO (18:30)
[2018-01-07] MEDS ORDERED: SINGULAIR10 MG PO (18:33)
[2018-01-07] MEDS ORDERED: FUROSEMIDE20 MG PO (18:33)
[2018-01-07] MEDS ORDERED: PROAIR HFA8.5 GM INH (18:33)
[2018-01-07] MEDS ORDERED: POTASSIUM CHLO10 ME1 PO (18:34)
[2018-01-08 12:17] LABS: FUNGUS STAIN Final report (())
[2018-01-13 07:31] LABS: FUNGUS CULTURE RESULT 1 Candida albicans (())
[2018-01-15 08:21] LABS: VIRAL - RESULT No virus isolated. (())
[2018-01-15 18:47] LABS: ANA REFLEX - DIRECT Negative (Negative)
[2018-02-08 15:09] LABS: FUNGUS MYCOLOGY CULTURE Final report (())
== END 2018-01-07 19:56 | disposition home or self-care (01) | DRG 166 ==
LOC: D.ER 06:43 → D.M2 12:18
PROVIDERS: Emergency Medicine; Family Medicine; Internal Medicine Interventional Cardiology; Internal Medicine Pulmonary Disease
PROC: B2151ZZ Fluoroscopy of Left Heart using Low Osmolar Contrast (ICD-10-PCS; 2018-01-04)
PROC: 4A023N8 Measurement of Cardiac Sampling and Pressure, Bilateral, Percutaneous Approach (ICD-10-PCS; 2018-01-04)
PROC: B2111ZZ Fluoroscopy of Multiple Coronary Arteries using Low Osmolar Contrast (ICD-10-PCS; principal; 2018-01-04 12:15)
PROC: 0B9F8ZX Drainage of Right Lower Lung Lobe, Via Natural or Artificial Opening Endoscopic, Diagnostic (ICD-10-PCS; 2018-01-06)
PROC: 0B928ZZ Drainage of Carina, Via Natural or Artificial Opening Endoscopic (ICD-10-PCS; 2018-01-06)
PROC: 0B948ZZ Drainage of Right Upper Lobe Bronchus, Via Natural or Artificial Opening Endoscopic (ICD-10-PCS; 2018-01-06)
PROC: 0B988ZZ Drainage of Left Upper Lobe Bronchus, Via Natural or Artificial Opening Endoscopic (ICD-10-PCS; 2018-01-06)
PROC: 0B918ZZ Drainage of Trachea, Via Natural or Artificial Opening Endoscopic (ICD-10-PCS; 2018-01-06)
PROC: 0B958ZZ Drainage of Right Middle Lobe Bronchus, Via Natural or Artificial Opening Endoscopic (ICD-10-PCS; 2018-01-06)
PROC: 0B938ZZ Drainage of Right Main Bronchus, Via Natural or Artificial Opening Endoscopic (ICD-10-PCS; 2018-01-06)
PROC: 0B978ZZ Drainage of Left Main Bronchus, Via Natural or Artificial Opening Endoscopic (ICD-10-PCS; 2018-01-06)
PROC: 0B968ZZ Drainage of Right Lower Lobe Bronchus, Via Natural or Artificial Opening Endoscopic (ICD-10-PCS; 2018-01-06)
PROC: 0B9B8ZZ Drainage of Left Lower Lobe Bronchus, Via Natural or Artificial Opening Endoscopic (ICD-10-PCS; 2018-01-06)
DX: J69.0 Pneumonitis due to inhalation of food and vomit (principal); J96.01 Acute respiratory failure with hypoxia; I50.33 Acute on chronic diastolic (congestive) heart failure; J44.0 Chronic obstructive pulmonary disease with (acute) lower respiratory infection; Z87.891 Personal history of nicotine dependence; J30.9 Allergic rhinitis, unspecified; F11.90 Opioid use, unspecified, uncomplicated; F12.90 Cannabis use, unspecified, uncomplicated; I08.3 Combined rheumatic disorders of mitral, aortic and tricuspid valves; E87.6 Hypokalemia; D64.9 Anemia, unspecified; I27.20 Pulmonary hypertension, unspecified

== ENCOUNTER 2018-06-26 00:34 | Inpatient (IN) | payer MEDICAID ==
[~2018-06-26] VITALS: Ht 165.1 cm; Wt 72.7 kg
[2018-06-26] VITALS (8 sets, daily range): BP systolic 138–162; BP diastolic 67–83; Ht 165.1 cm; Wt 72.7 kg
--- NOTE | ~2018-06-26 | HEMODYNAMI ---
PATIENT:LB QUIJANO MEDICAL RECORD: [id number] : 75 LOCATION:[facility] D.2136 ADMISSION DATE: 06/29/18 Generatedon:06/30/201813:24 Patient name: LB QUIJANO Patient #: [id number] SSN: D OB: 1975 Date of study: 06/30/2018 Page: Of Hemodynamic Procedure Report Patient Data Patient Demographics Procedure consent was obtained First Name: LB Gender: Male Last Name: SAMM : 1975 [facility] Initial: C Age: 42 year(s) Patient #: [id number] Race: Black Additional ID: [id number] Contact details Address: [address] [place] [address] State: [place] City: [place] Zip code: [address] Past Medical History Allergies: No known allergies Admission Admission Data Admission Date: 06/29/2018 Admission Time: 13:47 Room #: D.2136 Procedure Procedure Types Cath Procedure Diagnostic Procedure ANGELA Procedure Description Procedure Date Procedure Date: 06/30/2018 Procedure Start Time: 13:07 Procedure End Time: 13:22 Procedure Staff Name Function Ronnell Harris MD Performing Physician Luis Antonio Chacon SALES ACCOUNT ASSOCIATE Additional personnel Sharmin Guadarrama RT Monitor Darcy Patel RT Monitor Seb Peterson RN Nurse Kevan Vo Registration Rep Procedure Data Cath Procedure Fluoroscopy Diagnostic fluoroscopy Total fluoroscopy Time: 0 time: 0 min min Diagnostic fluoroscopy Total fluoroscopy dose: 0 dose: 0 mGy mGy Contrast Material Contrast Material Type Amount (ml) Isovue 300 0 Estimated blood loss: 0 ml Procedure Complications No complications Procedure Medications Medication Administration Route Dosage 0.9% NaCl I.V. 100 ml/hr Oxygen etCO2 Nasal cannula 4 l/min unlisted medication added to field 15 ml unlisted medication 15 ml Refer to Anesthesia Notes for Sedation Medications Hemodynamics Rest Pre Cath Intra NCS Post Cath Vital Signs Time Heart Resp SPO2 etCO2 NIBP (mmHg) Rhythm Pain Sedation Rate (ipm) (%) (mmHg) Status Level (bpm) 12:54:41 76 21 100 25 131/55(98) NSR 0 (11) 10(A) , No pain 12:58:59 80 14 100 31.1 126/60(92) NSR 0 (11) 10(A) , No pain 13:03:17 76 24 100 29.5 125/52(87) NSR 0 (11) 10(A) , No pain 13:07:33 81 22 100 23.5 122/60(94) NSR 0 (11) 10(A) , No pain 13:13:02 113 29 92 21.2 167/85(112) NSR 0 (11) 9(A) , No pain 13:18:10 116 52 93 18.9 136/87(106) NSR 0 (11) 9(A) , No pain 13:20:58 109 37 92 6.8 141/73(91) NSR 0 (11) 9(A) , No pain Medications Time Medication Route Dose Verified Delivered Reason Notes Effectiv eness by by 12:54:32 0.9% NaCl I.V. 100 Seb Seb Per ml/hr Nicholas Peterson physician RN RN 12:54:49 Oxygen etCO2 4 Seb Seb Per Nasal l/min Nicholas Peterson physician cannula RN RN 12:56:26 Viscous added 15 ml Seb Seb for local Lidocaine to Lorigan Lorigan anesthetic 2% field RN RN 12:58:25 viscous p.o. 15 ml Seb Seb for local Lidocaine Lorigan Lorigan anesthetic 2% RN RN 13:08:07 Refer to Seb Seb for Anesthesia Lorigan Nicholas sedation Notes for RN RN Sedation Medications Procedure Log Time Note 12:40:35 Sharmin Guadarrama RT(R) sent for patient. Start room use. 12:40:36 Time tracking: Regular hours (M-F 7:00 - 5:00) 12:40:39 Plan of Care:Hemodynamics will remain stable., Cardiac rhythm will remain stable., Comfort level will be maintained., Respiratory function will remain adequate., Patient/ family verbilizes understanding of procedure., Procedure tolerated without complication., Recovers from procedure without complications.. 12:40:40 Signed procedure consent form obtained from patient. 12:40:41 Diagnostic Cath status Elective 12:40:57 H&P Date Dictated: 06/26/2018 Within 30 days and on chart.. 12:49:47 ECG and BP/O2 sat monitors applied to patient. 12:49:55 Patient received from Med II to CCL 2 Alert and oriented. Tansferred to table in Supine position. 12:49:56 Warm blankets applied, and chelle hugger turned on for patient comfort. 12:49:56 Correct patient and procedure confirmed by team. 12:49:57 Vital chart was started 12:50:26 Pre-procedure instructions explained to patient. 12:50:26 Pre-op teaching completed and patient verbalized understanding. 12:50:29 Family unavailable. 12:50:31 Patient NPO since Midnight. 12:50:32 Is the patient allergic to Iodine/contrast media? No. 12:50:33 Was the patient premedicated? No 12:50:34 Is patient on blood thinner?No 12:50:35 Patient diabetic? No. 12:50:38 Previous problem with sedation/anesthesia? No ? 12:50:40 Snore? Yes 12:50:41 Sleep apnea? No 12:50:42 Deviated septum? No 12:50:43 Opens mouth fully? Yes 12:50:44 Sticks out tongue? Yes 12:50:58 Airway obstruction? Yes copd, pulmonary hypertension 12:51:00 Dentures? No ? 12:51:06 Patient pain scale 0/10 ?. 12:52:03 IV patent on arrival in left forearm with 0.9% NaCl at [facility]. 12:52:05 Lab results completed and on chart. 12:52:59 Alarms reviewed by R. N. 12:52:59 Sharps counted by scrub and verified by R.N. 12:53:56 Physician arrived 12:53:56 --------ALL STOP TIME OUT------ 12:53:57 Final Timeout: patient, procedure, and site verified with staff and physician. All members of the team are in agreement. 12:54:29 Physical assessment completed. ASA score P 2 - A patient with mild systemic disease as per Ronnell Harris MD. 12:54:32 0.9% NaCl 100 ml/hr I.V. was administered by Seb Peterson RN; Per physician; 12:54:34 Sedation plan: TIVA Medication:Propofol 12:54:39 Luis Antonio Chacon CRNA present and monitoring patient for TIVA. 12:54:49 Oxygen 4 l/min etCO2 Nasal cannula was administered by Seb Peterson RN; Per physician; 12:54:53 Kevan Seward Wet Process Miller Head Assistant present for ANGELA. 12:56:26 Viscous Lidocaine 2% 15 ml added to field was administered by Seb Peterson RN; for local anesthetic; 12:58:25 viscous Lidocaine 2% 15 ml p.o. was administered by Seb Peterson RN; for local anesthetic; 13:07:46 Procedure started. 13:07:46 Full Disclosure recording started 13:07:49 ANGELA started. 13:08:07 Refer to Anesthesia Notes for Sedation Medications was administered by Seb Peterson RN; for sedation; 13:14:49 ANGELA completed. 13:15:17 Procedure ended.(Physican Out) 13:15:31 Fluoroscopy time 00.00 minutes. 13:15:33 Fluoroscopy dose: 0 mGy 13:15:33 Flurop Dose total: 0 13:15:39 Contrast amount:Isovue 300 0ml. 13:15:40 Sharps counted by scrub and verified by R.N. 13:15:43 Insertion/operative site no bleeding no hematoma. 13:15:49 Post procedure rhythm: unchanged. 13:16:10 Estimated blood loss: 0 ml 13:17:15 Post procedure instruction explained to patient.Patient verbalizes understanding. 13:17:15 Patient needs reinforcement of post procedure teaching. 13:17:28 Procedure and supply charges have been captured, reviewed, submitted and are correct. 13:17:32 Procedure Complication : No complications 13:21:59 Vital chart was stopped 13:21:59 See physician's report for complete and final results. 13:22:02 Report given to Med II. 13:22:06 Patient transfered to Med II with Stretcher. 13:22:12 Procedure ended. 13:22:12 Full Disclosure recording stopped 13:22:15 End room use (Document Last) Signature Audit [place] Stage Time Signature Unsigned Intra-Procedure 06/30/2018 Sharmin Guadarrama 1:23:57 PM RT(R) Signatures Monitor : Sharmin Guadarrama RT Signature : Date : Time : Monitor : Darcy Patel Signature : RT Date : [address] : [address] [place] [address]
--- NOTE | ~2018-06-26 | TEE ---
PATIENT:LB QUIJANO MEDICAL RECORD: [id number] [facility] AGE OF PATIENT: 42 ADMISSION DATE: 06/29/18 SEX: M REFERRING PHYSICIAN: INTERPRETING PHYSICIAN: SÁNCHEZ PIZARRO MD TRANSESOPHAGEAL ECHOCARDIOGRAM Date: 06/30/18 ANGELA CHARGE Y INDICATIONS: EVALUTE MR AND TR PREMEDICATIONS: PATIENT'S RESPONSE PROCEDURE DOPPLER MEASUREMENTS: LVIT LA PA 178 RA LVOT 154 RVOT 53 Asc. Ao 171 AV Gradient Peak 11.70 AV Mean 5.99 AV Area 3.0 MV Gradient Peak 31.98 MV Mean 8.60 MV Area INTERPRETATION: Doppler: 2-D: COLOR FLOW DOPPLER NORMAL SALINE STUDY: MISCELLANOUS: DIAGNOSIS: PLAN: Food Mixer Assembler:3 Dr. [facility] Para Professional: Dora PALMER COMMENTS: DATE OF SERVICE: PROCEDURE: Transesophageal echo. DESCRIPTION OF PROCEDURE: After general anesthesia via TIVA via anesthesia, transesophageal Omniplane probe placed on the top of stomach, distal esophagus without difficulty. FINDINGS: Mild LVH. LV internal dimensions are normal. Wall motion is normal. TRANSESOPHAGEAL ECHOCARDIOGRAM REPORT [id number] SEDA QUIJANO EF is greater than or equal to 55%. Aortic valve is tricuspid with good excursion. However, the valve never completely collapsed resulting in severe AI by color flow imaging. Left atrium is enlarged. Mitral valve shows no prolapse, good excursion. Moderate MR. Right-sided chambers are obviously dilated, severe TR by color flow imaging. At the end of the procedure, the probe was turned posteriorly and this showed no atherosclerotic debris in the descending aorta. TRANSINT:[id number] Voice Confirmation ID: [id number] DOCUMENT ID: [id number] at 0802 CC: [id number] DICTATION DATE: 06/30/18 1318 BULK PICKER: 06/30/18 1329 DIS IN 07/01/18 [id number] [place] [address]
--- NOTE | ~2018-06-26 | MORECARE ---
CASE MANAGEMENT DISCHARGE SUMMARY PATIENT: LB QUIJANO UNIT: [id number] ADM DATE: 06/29/18 AGE: 42 : 75 SEX: M ROOM/BED: D.2136 AUTHOR: NELDA JOSEPH PHYSICIAN: REFERRING PHYSICIAN: BRIGETTE TOLLIVER MD DATE OF SERVICE: 06/30/18 Discharge Plan Patient Name: LB QUIJANO Facility: [facility]:[place] : 1975 Planned Disposition: Home Anticipated Discharge Date: 06/30/18 Discharge Date: Expected LOS: 1 Initial Reviewer: [email or web address] Initial Review Date: 06/30/2018 Generated: 06/30/18 5:33 pm Patient Name: LB QUIJANO Page 61693 at 1633 All edits/amendments must be made on the electronic document DICTATION DATE: 06/30/18 163 VALUE ENGINEER: ALE 06/30/18 1633 RPT#: [id number] DC DATE: STATUS: ADM IN [facility] [address] [place] [address] END OF REPORT
--- NOTE | ~2018-06-26 | MORECARE ---
CASE MANAGEMENT DISCHARGE SUMMARY PATIENT: LB QUIJANO UNIT: [id number] ADM DATE: 06/29/18 AGE: 42 : 75 SEX: M ROOM/BED: D.2136 AUTHOR: JAKE,DOC PHYSICIAN: REFERRING PHYSICIAN: BRIGETTE TOLLIVER MD DATE OF SERVICE: 06/30/18 Discharge Plan Patient Name: LB QUIJANO Facility: [facility]:[place] : 1975 Planned Disposition: Home Anticipated Discharge Date: 06/30/18 Discharge Date: Expected LOS: 1 Initial Reviewer: [email or web address] Initial Review Date: 06/30/2018 Generated: 06/30/18 5:42 pm Comments DCP- Discharge Planning Updated by [email or web address]: Arslan Hoover on 06/30/18 3:[address] Patient Name: LB QUIJANO Encounter No: [id number] : 1975 Primary Insurance: MEDICAID [place] PENDING Anticipated DC Date: 06-30-2018 Planned Disposition: Home DISCHARGE PLANNING COMMENTS: CM MET WITH PT IN ROOM TO DISCUSS DISCHARGE PLANNING AND NEEDS. PT REPORTS LIVING AT HOME INDEPENDENTLY AND ALONE. PT HAS NO MEDICAL EQUIPMENT AND NO OUTSIDE SERVICES ASSISTING IN THE HOME. CM DISCUSSED AVAILABILITY OF HOME HEALTH, REHAB SERVICES AND MEDICAL EQUIPMENT. PT DENIES DISCHARGE NEEDS, REPORTS HE WILL PHONE A FRIEND WHO WILL PICK HIM UP FOR DISCHARGE HOME. PT REPORTS HAVING ACTIVE MEDICAID HE HAS BEEN PICKING UP PRESCRIPTIONS AT [facility]. PT HAS RECEIVED PHONE CALL FROM [facility] TODAY TO VERIFY HIS HOME ADDRESS. CM CALLED LINETTE WITH [employer], WHO CHECKED AND VERIFIED PT'S MEDICAID IS ACTIVE. LINETTE WILL UPDATE PT'S FINANCIAL INFORMATION. CM NOTIFIED PT, ADVISED PT TO FOLLOW UP WITH DEPARTMENT OF HUMAN SERVICES TO VERIFY HIS ADDRESS FOR MEDICAID AND ALSO PROVIDED AND DISCUSSED [facility] CONNECTIONS INFORMATION TO ASSIST PT WITH FINDING PRIMARY CARE DOCTOR. PT PLANS TO DISCHARGE HOME ALONE, DENIES NEEDS, WILL PHONE A FRIEND TO DIAGNOSTIC MEDICAL SONOGRAPHER AT DISCHARGE. Arslan Hoover, CASE MANAGEMENT DCPIA - Discharge Planning Initial Assessment Updated by [email or web address]: Arslan Hoover on 06/30/18 4:37 pm * Is the patient Alert and Oriented? Yes * How many steps to enter\exit or inside your home? * PCP NONE - HAS NOT BEEN SEEKING PRIMARY CARE [facility] INFORMATION PROVIDED. * Pharmacy [facility] [place] * Preadmission Environment Home Alone * ADLs Independent * Equipment None * Other Equipment NO MEDICAL EQUIPMENT PROVIDER PREFERENCE * List name and contact numbers for known caregivers / representatives who currently or will assist patient after discharge: NANCY QUIJANO, MOTHER, [place] [phone] * Verbal permission to speak to the caregivers and representatives has been obtained from the patient. N/A * Community resources currently utilized None * Please name any agencies selected above. NONE * Additional services required to return to the preadmission environment? No * Can the patient safely return to the preadmission environment? Yes * Has this patient been hospitalized within the prior 30 days at any hospital? No Last DP export: 06/30/18 3:33 Patient Name: LB QUIJANO Page 68327 at 1642 All edits/amendments must be made on the electronic document DICTATION DATE: 06/30/181641 PARKING METER COLLECTOR: ALE 06/30/181641 RPT#: [id number] DC DATE: STATUS: ADM IN [facility] [address] [place] [address] END OF REPORT
--- NOTE | ~2018-06-26 | MORECARE ---
CASE MANAGEMENT DISCHARGE SUMMARY PATIENT: LB QUIJANO UNIT: [id number] ADM DATE: 06/29/18 AGE: 42 : 75 SEX: M ROOM/BED: D.2132 AUTHOR: JAKEDOC PHYSICIAN: REFERRING PHYSICIAN: BRIGETTE TOLLIVER MD DATE OF SERVICE: 07/02/18 Discharge Plan Patient Name: LB QUIJANO Facility: [facility]:[place] : 1975 Planned Disposition: Home Anticipated Discharge Date: 07/01/18 Discharge Date: 07/01/2018 Expected LOS: 2 Initial Reviewer: [email or web address] Initial Review Date: 06/30/2018 Generated: 07/02/18 9:46 am Comments DCP- Discharge Planning Updated by [email or web address]: Arslan Hoover on 06/30/18 3:[address] Patient Name: LB QUIJANO Encounter No: [id number] : 1975 Primary Insurance: MEDICAID [place] PENDING Anticipated DC Date: 06-30-2018 Planned Disposition: Home DISCHARGE PLANNING COMMENTS: CM MET WITH PT IN ROOM TO DISCUSS DISCHARGE PLANNING AND NEEDS. PT REPORTS LIVING AT HOME INDEPENDENTLY AND ALONE. PT HAS NO MEDICAL EQUIPMENT AND NO OUTSIDE SERVICES ASSISTING IN THE HOME. CM DISCUSSED AVAILABILITY OF HOME HEALTH, REHAB SERVICES AND MEDICAL EQUIPMENT. PT DENIES DISCHARGE NEEDS, REPORTS HE WILL PHONE A FRIEND WHO WILL PICK HIM UP FOR DISCHARGE HOME. PT REPORTS HAVING ACTIVE MEDICAID HE HAS BEEN PICKING UP PRESCRIPTIONS AT [facility]. PT HAS RECEIVED PHONE CALL FROM [facility] TODAY TO VERIFY HIS HOME ADDRESS. CM CALLED LINETTE WITH [employer], WHO CHECKED AND VERIFIED PT'S MEDICAID IS ACTIVE. LINETTE WILL UPDATE PT'S FINANCIAL INFORMATION. CM NOTIFIED PT, ADVISED PT TO FOLLOW UP WITH DEPARTMENT OF HUMAN SERVICES TO VERIFY HIS ADDRESS FOR MEDICAID AND ALSO PROVIDED AND DISCUSSED HEALTHY CONNECTIONS INFORMATION TO ASSIST PT WITH FINDING PRIMARY CARE DOCTOR. PT PLANS TO DISCHARGE HOME ALONE, DENIES NEEDS, WILL PHONE A FRIEND TO NATIONAL INSURANCE OFFICER AT DISCHARGE. Arslan Hoover, CASE MANAGEMENT DCPIA - Discharge Planning Initial Assessment Updated by [email or web address]: Arslan Hoover on 06/30/18 4:37 pm * Is the patient Alert and Oriented? Yes * How many steps to enter\exit or inside your home? * PCP NONE - HAS NOT BEEN SEEKING PRIMARY CARE [facility] INFORMATION PROVIDED. * Pharmacy [facility] * Preadmission Environment Home Alone * ADLs Independent * Equipment None * Other Equipment NO MEDICAL EQUIPMENT PROVIDER PREFERENCE * List name and contact numbers for known caregivers / representatives who currently or will assist patient after discharge: NANCY QUIJANO, MOTHER, [place] [phone] * Verbal permission to speak to the caregivers and representatives has been obtained from the patient. N/A * Community resources currently utilized None * Please name any agencies selected above. NONE * Additional services required to return to the preadmission environment? No * Can the patient safely return to the preadmission environment? Yes * Has this patient been hospitalized within the prior 30 days at any hospital? No Last DP export: 06/30/18 3:42 Patient Name: LB QUIJANO Page 92867 at 0846 All edits/amendments must be made on the electronic document DICTATION DATE: 07/02/18844 CARTOGRAPHY TEACHER: ALE 07/02/18844 RPT#: [id number] DC DATE:07/01/18 STATUS: DIS IN [facility] [address] [place] [address] END OF REPORT
[~2018-06-26 00:34] MED LIST changes: +FUROSEMIDE20 MG PO; +LEVAQUIN500 MG PO; +POTASSIUM CHLO10 ME1 PO; +PROAIR HFA8.5 GM INH; +SINGULAIR10 MG PO
[2018-06-26 00:56] LABS: BASOPHILS 0.4 % (0-2); EOSINOPHILS 0.4 % (0-7); HEMATOCRIT 43.2 % (42.0-54.0); HEMOGLOBIN 15.3 g/dL (13.5-17.5); IMMATURE GRANULOCYTES 0.1 % (0-5); LYMPHOCYTES 24.9 % (15-50); MCHC 35.4 g/dL (31.0-37.0); MCV 87.6 fL (80.0-100.0); MEAN PLATELET VOLUME 10.5 fL (7.4-10.4); MONOCYTES 10.4 % (2-11); NEUTROPHILS 63.8 % (40-80); PLATELET COUNT 298 10x3/uL (130-400); RBC 4.93 10x6/uL (4.20-6.10); RDW 12.8 % (11.5-14.5); WBC 7.9 10x3/uL (4.8-10.8)
[2018-06-26 01:10] LABS: ALKALINE PHOSPHATASE 43 U/L (46-116); ALT (SGPT) 24 U/L (10-68); BILIRUBIN - TOTAL 1.76 mg/dL (0.2-1.3); CALC OSMOLALITY 286 mosm/kg (275-300); CALCIUM 8.7 mg/dL (8.5-10.1); CARBON DIOXIDE 27.4 mmol/L (21.0-32.0); CHLORIDE - SERUM 108 mmol/L (98-107); CREATININE - SERUM 1.5 mg/dL (0.6-1.3); GLUCOSE 79 mg/dL (74-106); POTASSIUM - SERUM 3.8 mmol/L (3.5-5.1); PROTEIN - SERUM 6.5 g/dL (6.4-8.2); SODIUM 143 mmol/L (136-145); UREA NITROGEN 22 mg/dL (7-18); eGFR NON AFRICAN AMERICAN 54 mL/min (90-120)
[2018-06-26 01:17] LABS: APPEARANCE CLEAR (CLEAR); BILIRUBIN NEGATIVE (NEGATIVE); COLOR YELLOW (YELLOW); GLUCOSE NEGATIVE (NEGATIVE); KETONE SMALL mg/dL (NEGATIVE); NITRITE NEGATIVE (NEGATIVE); PROTEIN NEGATIVE (NEGATIVE); SPECIFIC GRAVITY 1.015 (1.005-1.020); UROBILINOGEN NORMAL (NORMAL)
[2018-06-26 01:23] LABS: AMYLASE - SERUM 47 U/L (25-115); CKMB 1.7 U/L (0.0-3.6); CREATINE KINASE 158 UL (21-232); LIPASE 129 U/L (73-393); MAGNESIUM - SERUM 1.9 mg/dL (1.8-2.4); PRO BNP 10677 pg/mL (0-125); TROPONIN-I 0.022 ng/mL (0.000-0.060)
[2018-06-26 01:25] LABS: UDS - AMPHET NEGATIVE QUAL (NEGATIVE); UDS - BARB NEGATIVE QUAL (NEGATIVE); UDS - BENZO NEGATIVE QUAL (NEGATIVE); UDS - COCAINE POSITIVE QUAL (NEGATIVE); UDS - OPIATE NEGATIVE QUAL (NEGATIVE); UDS - PCP NEGATIVE QUAL (NEGATIVE); UDS - THC POSITIVE QUAL (NEGATIVE)
[2018-06-26 05:24] LABS: BASOPHILS 0.3 % (0-2); EOSINOPHILS 0.9 % (0-7); HEMATOCRIT 40.4 % (42.0-54.0); IMMATURE GRANULOCYTES 0.1 % (0-5); MCH 30.5 pg (26.0-34.0); MCHC 34.7 g/dL (31.0-37.0); MEAN PLATELET VOLUME 10.4 fL (7.4-10.4); NEUTROPHILS 57.7 % (40-80); PLATELET COUNT 272 10x3/uL (130-400); RBC 4.59 10x6/uL (4.20-6.10); RDW 12.8 % (11.5-14.5); WBC 7.6 10x3/uL (4.8-10.8)
[2018-06-26 05:55] LABS: CALC OSMOLALITY 284 mosm/kg (275-300); CALCIUM 8.3 mg/dL (8.5-10.1); CARBON DIOXIDE 25.7 mmol/L (21.0-32.0); CHLORIDE - SERUM 106 mmol/L (98-107); CKMB 1.4 U/L (0.0-3.6); CREATINE KINASE 134 UL (21-232); CREATININE - SERUM 1.5 mg/dL (0.6-1.3); GLUCOSE 79 mg/dL (74-106); POTASSIUM - SERUM 3.6 mmol/L (3.5-5.1); SODIUM 142 mmol/L (136-145); UREA NITROGEN 22 mg/dL (7-18); eGFR NON AFRICAN AMERICAN 54 mL/min (90-120)
[2018-06-26 06:00] LABS: TROPONIN-I < 0.017 ng/mL (0.000-0.060)
[2018-06-27 01:16] VITALS: BP 125/63
[2018-06-27 05:08] LABS: BASOPHILS 0.4 % (0-2); EOSINOPHILS 0.7 % (0-7); HEMATOCRIT 42.9 % (42.0-54.0); HEMOGLOBIN 15.4 g/dL (13.5-17.5); IMMATURE GRANULOCYTES 0.1 % (0-5); LYMPHOCYTES 36.6 % (15-50); MCH 31.2 pg (26.0-34.0); MCHC 35.9 g/dL (31.0-37.0); MCV 86.8 fL (80.0-100.0); MEAN PLATELET VOLUME 10.4 fL (7.4-10.4); MONOCYTES 8.5 % (2-11); NEUTROPHILS 53.7 % (40-80); PLATELET COUNT 307 10x3/uL (130-400); RBC 4.94 10x6/uL (4.20-6.10); RDW 12.6 % (11.5-14.5); WBC 6.8 10x3/uL (4.8-10.8)
[2018-06-27 05:17] LABS: ANION GAP 11.5 mmol/L (8-16); CALCIUM 9.1 mg/dL (8.5-10.1); CARBON DIOXIDE 30.3 mmol/L (21.0-32.0); CREATININE - SERUM 1.6 mg/dL (0.6-1.3); POTASSIUM - SERUM 3.8 mmol/L (3.5-5.1)
[2018-06-27 05:51] VITALS: BP 131/62
[2018-06-27 08:20] VITALS: BP 147/87
[2018-06-27 20:42] VITALS: BP 122/61
[2018-06-28 01:36] VITALS: BP 147/72
[2018-06-28 06:04] VITALS: BP 116/62
[2018-06-28 06:31] LABS: BASOPHILS 0.4 % (0-2); EOSINOPHILS 1.4 % (0-7); HEMATOCRIT 44.9 % (42.0-54.0); HEMOGLOBIN 15.9 g/dL (13.5-17.5); IMMATURE GRANULOCYTES 0.3 % (0-5); LYMPHOCYTES 28.2 % (15-50); MCH 30.6 pg (26.0-34.0); MCHC 35.4 g/dL (31.0-37.0); MCV 86.5 fL (80.0-100.0); MEAN PLATELET VOLUME 10.6 fL (7.4-10.4); MONOCYTES 11.5 % (2-11); NEUTROPHILS 58.2 % (40-80); PLATELET COUNT 292 10x3/uL (130-400); RBC 5.19 10x6/uL (4.20-6.10); RDW 12.5 % (11.5-14.5); WBC 7.9 10x3/uL (4.8-10.8)
[2018-06-28 06:34] LABS: ANION GAP 8.9 mmol/L (8-16); CALCIUM 8.9 mg/dL (8.5-10.1); CARBON DIOXIDE 30.8 mmol/L (21.0-32.0); CREATININE - SERUM 1.5 mg/dL (0.6-1.3); POTASSIUM - SERUM 3.7 mmol/L (3.5-5.1)
[2018-06-28 09:15] VITALS: BP 12/67
[2018-06-28 11:05] VITALS: BP 128/75
[2018-06-28 14:42] VITALS: BP 134/86
[2018-06-28 21:22] VITALS: BP 120/60
[2018-06-29 01:19] VITALS: BP 120/63
[2018-06-29 05:03] LABS: ANION GAP 12.1 mmol/L (8-16); BASOPHILS 0.4 % (0-2); CALCIUM 9.3 mg/dL (8.5-10.1); CARBON DIOXIDE 29.5 mmol/L (21.0-32.0); CREATININE - SERUM 1.5 mg/dL (0.6-1.3); HEMOGLOBIN 16.5 g/dL (13.5-17.5); LYMPHOCYTES 33.4 % (15-50); MCH 30.6 pg (26.0-34.0); MCHC 35.1 g/dL (31.0-37.0); MCV 87.2 fL (80.0-100.0); MEAN PLATELET VOLUME 10.6 fL (7.4-10.4); MONOCYTES 11.3 % (2-11); NEUTROPHILS 52.9 % (40-80); PLATELET COUNT 282 10x3/uL (130-400); POTASSIUM - SERUM 3.6 mmol/L (3.5-5.1); RBC 5.39 10x6/uL (4.20-6.10); RDW 12.4 % (11.5-14.5); WBC 7.1 10x3/uL (4.8-10.8)
[2018-06-29 06:11] VITALS: BP 121/51
[2018-06-29 07:56] VITALS: BP 119/66
[2018-06-29 11:03] VITALS: BP 145/70
[2018-06-29 15:29] VITALS: BP 129/61
[2018-06-29 20:00] VITALS: BP 155/82
[2018-06-30 00:46] VITALS: BP 130/72
[2018-06-30 04:00] VITALS: BP 124/58
[2018-06-30 06:11] LABS: BASOPHILS 0.4 % (0-2); HEMOGLOBIN 16.2 g/dL (13.5-17.5); IMMATURE GRANULOCYTES 0.1 % (0-5); LYMPHOCYTES 36.2 % (15-50); MCH 30.9 pg (26.0-34.0); MCHC 35.2 g/dL (31.0-37.0); MCV 87.8 fL (80.0-100.0); MEAN PLATELET VOLUME 10.6 fL (7.4-10.4); MONOCYTES 11.6 % (2-11); NEUTROPHILS 50.7 % (40-80); PLATELET COUNT 312 10x3/uL (130-400); RBC 5.24 10x6/uL (4.20-6.10); RDW 12.4 % (11.5-14.5); WBC 7.2 10x3/uL (4.8-10.8)
[2018-06-30 06:17] LABS: ANION GAP 9.2 mmol/L (8-16); CALCIUM 8.9 mg/dL (8.5-10.1); CARBON DIOXIDE 30.2 mmol/L (21.0-32.0); CREATININE - SERUM 1.4 mg/dL (0.6-1.3)
[2018-06-30 06:23] LABS: POTASSIUM - SERUM 4.4 mmol/L (3.5-5.1)
[2018-06-30 07:56] VITALS: BP 114/50
[2018-06-30 08:20] LABS: HEPATITIS C ANTIBODY <0.1 (0.0-0.9)
[2018-06-30 10:46] VITALS: BP 120/66
[2018-06-30 14:49] VITALS: BP 146/43
[2018-06-30] MEDS ORDERED: K-DUR20 MEQ PO (15:35)
[2018-06-30 20:00] VITALS: BP 134/57
[2018-07-01 05:27] LABS: BASOPHILS 0.6 % (0-2); EOSINOPHILS 1.3 % (0-7); HEMATOCRIT 45.5 % (42.0-54.0); HEMOGLOBIN 15.8 g/dL (13.5-17.5); IMMATURE GRANULOCYTES 0.1 % (0-5); LYMPHOCYTES 38.9 % (15-50); MCH 30.6 pg (26.0-34.0); MCHC 34.7 g/dL (31.0-37.0); MEAN PLATELET VOLUME 10.5 fL (7.4-10.4); MONOCYTES 11.4 % (2-11); NEUTROPHILS 47.7 % (40-80); PLATELET COUNT 296 10x3/uL (130-400); RBC 5.17 10x6/uL (4.20-6.10); RDW 12.2 % (11.5-14.5)
[2018-07-01 05:48] LABS: ANION GAP 13.5 mmol/L (8-16); CALCIUM 8.6 mg/dL (8.5-10.1); CARBON DIOXIDE 26.1 mmol/L (21.0-32.0); CREATININE - SERUM 1.3 mg/dL (0.6-1.3); POTASSIUM - SERUM 4.6 mmol/L (3.5-5.1)
[2018-07-01 07:27] VITALS: BP 115/50
[2018-07-01 09:06] VITALS: BP 110/50
== END 2018-07-01 11:49 | disposition home or self-care (01) | DRG 292 ==
LOC: OBSVTIME → D.ER 00:34 → D.M2 02:07 → OBSVTIME 02:07 → D.M2 02:51 → D.ER 02:51 → D.M2 06-27 13:48 → OBSVTIME 06-29 13:46 → D.M2 06-29 13:47
PROVIDERS: Family Medicine; Internal Medicine Nephrology; Thoracic Surgery (Cardiothoracic Vascular Surgery)
DX: I50.33 Acute on chronic diastolic (congestive) heart failure (principal); N17.9 Acute kidney failure, unspecified; F17.213 Nicotine dependence, cigarettes, with withdrawal; I27.22 Pulmonary hypertension due to left heart disease; N18.3 Chronic kidney disease, stage 3 (moderate); F14.10 Cocaine abuse, uncomplicated; F12.10 Cannabis abuse, uncomplicated; I08.3 Combined rheumatic disorders of mitral, aortic and tricuspid valves; J44.9 Chronic obstructive pulmonary disease, unspecified

== ENCOUNTER 2018-10-02 01:59 | Emergency (ER) | payer MEDICAID ==
[~2018-10-02] VITALS: Ht 165.1 cm; Wt 75.0 kg
[~2018-10-02 01:59] MED LIST changes: +K-DUR20 MEQ PO
[2018-10-02 02:07] VITALS: Ht 165.1 cm; Wt 75.0 kg
[2018-10-02] MEDS ORDERED: LASIX20 MG PO (02:44)
[2018-10-02] MEDS ORDERED: K-DUR20 MEQ PO (02:44)
[2018-10-02 03:15] VITALS: BP 148/86
== END 2018-10-02 03:00 | disposition home or self-care (01) ==
LOC: D.ER 01:59
DX: I50.22 Chronic systolic (congestive) heart failure (principal); R09.89 Other specified symptoms and signs involving the circulatory and respiratory systems

== ENCOUNTER 2018-10-19 04:33 | Observation (INO) | payer MEDICAID ==
[~2018-10-19] VITALS: Ht 165.1 cm; Wt 57.1 kg
[~2018-10-19 04:33] MED LIST changes: +LASIX20 MG PO
[2018-10-19 05:18] LABS: BASOPHILS 0.3 % (0-2); EOSINOPHILS 0.8 % (0-7); HEMATOCRIT 41.8 % (42.0-54.0); HEMOGLOBIN 14.6 g/dL (13.5-17.5); IMMATURE GRANULOCYTES 0.5 % (0-5); LYMPHOCYTES 33.9 % (15-50); MCH 30.7 pg (26.0-34.0); MCHC 34.9 g/dL (31.0-37.0); MCV 87.8 fL (80.0-100.0); MONOCYTES 10.9 % (2-11); NEUTROPHILS 53.6 % (40-80); PLATELET COUNT 309 10x3/uL (130-400); RBC 4.76 10x6/uL (4.20-6.10); RDW 13.9 % (11.5-14.5); WBC 6.6 10x3/uL (4.8-10.8)
--- NOTE | 2018-10-19 05:28 | NUR ---
800 mls urine output
[2018-10-19 05:30] LABS: ALBUMIN 2.8 g/dL (3.4-5.0); ANION GAP 15.3 mmol/L (8-16); BILIRUBIN - TOTAL 1.48 mg/dL (0.2-1.3); CALCIUM 8.3 mg/dL (8.5-10.1); CREATININE - SERUM 1.4 mg/dL (0.6-1.3); POTASSIUM - SERUM 4.3 mmol/L (3.5-5.1); PROTEIN - SERUM 6.5 g/dL (6.4-8.2)
[2018-10-19 05:39] LABS: MAGNESIUM - SERUM 1.9 mg/dL (1.8-2.4); TROPONIN-I 0.044 ng/mL (0.000-0.060)
[2018-10-19] MEDS ORDERED: ISOSORBIDE MONO30 M1 PO (05:46)
[2018-10-19] MEDS ORDERED: LASIX40 MG PO (05:46)
[2018-10-19 05:47] VITALS: BP 143/74
[2018-10-19] MEDS ORDERED: K-DUR20 MEQ PO (05:47)
--- NOTE | 2018-10-19 06:02 | NUR ---
800 mls urine output. patient is awake and alert. updated on plan of care and delays in care. will continue to monitor.
[2018-10-19 07:24] VITALS: BMI 26.6
[2018-10-19 09:17] VITALS: BP 135/76
[2018-10-19 11:05] VITALS: Ht 165.1 cm; Wt 57.1 kg
[2018-10-19 11:46] VITALS: BP 123/64
[2018-10-19 15:46] VITALS: BP 130/69
--- NOTE | 2018-10-19 17:48 | MORECARE ---
CASE MANAGEMENT DISCHARGE SUMMARY PATIENT: LB QUIJANO UNIT: [id number] ADM DATE: 10/19/18 AGE: 43 : 75 SEX: M ROOM/BED: D.2122 AUTHOR: NELDA JOSEPH PHYSICIAN: REFERRING PHYSICIAN: LANE FAYE MD DATE OF SERVICE: 10/19/18 Discharge Plan Patient Name: LB QUIJANO [facility] [facility] 1975 Planned Disposition: Home Anticipated Discharge Date: 10/19/18 Discharge Date: Expected LOS: 1 Initial Reviewer: [email or web address] Initial Review Date: 10/19/2018 Generated: 10/19/18 6:48 pm DCPIA - Discharge Planning Initial Assessment Updated by [email or web address]: Arslan Hoover on 10/19/18 5:48 pm * Is the patient Alert and Oriented? Yes * How many steps to enter\exit or inside your home? NONE * PCP NONE - [facility] REFERRED * Pharmacy [facility] [place] * Preadmission Environment Home with Family * ADLs Independent * Equipment None * Other Equipment NO MEDICAL EQUIPMENT PROVIDER PREFERENCE * List name and contact numbers for known caregivers / representatives who currently or will assist patient after discharge: NANCY QUIJANO, MOTHER, DARIANA GARBER, SIGNIFICANT OTHER, * Verbal permission to speak to the caregivers and representatives has been obtained from the patient. Yes * Community resources currently utilized None * Please name any agencies selected above. NONE * Additional services required to return to the preadmission environment? No * Can the patient safely return to the preadmission environment? Yes * Has this patient been hospitalized within the prior 30 days at any hospital? No Patient Name: LB QUIJANO Page 52176 at 1748 All edits/amendments must be made on the electronic document DICTATION DATE: 10/19/181747 TRAVELING CLERK: ALE 10/19/181747 RPT#: [id number] DC DATE: STATUS: ADM IN [facility] [address] [place] [address] END OF REPORT
--- NOTE | 2018-10-19 17:57 | MORECARE ---
CASE MANAGEMENT DISCHARGE SUMMARY PATIENT: LB QUIJANO UNIT: [id number] ADM DATE: 10/19/18 AGE: 43 : 75 SEX: M ROOM/BED: D.6647 AUTHOR: JAKE,DOC PHYSICIAN: REFERRING PHYSICIAN: LANE FAYE MD DATE OF SERVICE: 10/19/18 Discharge Plan Patient Name: LB QUIJANO Facility: [facility]:[place] : 1975 Planned Disposition: Home Anticipated Discharge Date: 10/19/18 Discharge Date: Expected LOS: 1 Initial Reviewer: [email or web address] Initial Review Date: 10/19/2018 Generated: 10/19/18 6:57 pm DCP- Discharge Planning Updated by [email or web address]: Arslan Hoover on 10/19/18 4:[address] Patient Name: LB QUIJANO Encounter No: [id number] : 1975 Primary Insurance: [place] [employer] [facility] Anticipated DC Date: 10-19-2018 Planned Disposition: Home DISCHARGE PLANNING NOTE: CM RECEIVED ORDER TO ASSIST WITH "COURT PAPERS". CM MET WITH PT AND SIGNIFICANT OTHER OF TWO YEARS IN ROOM TO DISCUSS DISCHARGE PLANNING AND NEEDS. LB QUIJANO provided verbal consent to discuss current and ongoing needs with/in the presence of: DARIANA GARBER. PT REPORTS LIVING AT HOME INDEPENDENTLY WITH HIS SIGNIFICANT OTHER AND TODDLER CHILD. PT HAS NO MEDICAL EQUIPMENT AND NO OUTSIDE SERVICES ASSISTING IN THE HOME. CM DISCUSSED AVAILABILITY OF HOME HEALTH, REHAB SERVICES AND MEDICAL EQUIPMENT. PT DENIES DISCHARGE NEEDS, REPORTS HIS SIGNIFICANT OTHER WILL PICK HIM UP FOR DISCHARGE HOME. PT REPORTS HAVING SCHEDULED HEARING IN [facility] OF [facility] TOMORROW AND WOULD LIKE CM TO SEND EXCUSE TO THE PUBLIC DEFENDERS OFFICE OF [facility] FOR TOMORROW SINCE PT IS IN THE HOSPITAL. CM EXPLAINED THAT CM WILL FAX TO [facility] FIRST THING IN THE MORNING IF PT IS STILL IN HOSPITAL. PT DENIES FURTHER NEEDS. IF PT IS STILL IN THE HOSPITAL TOMORROW MORNING, 10-20-18, CM TO CONTACT THE PASTEURIZING MACHINE OPERATOR OF [facility] AND PROVIDE LETTER TO THE COURT INFORMING OF PT BEING ADMITTED TO HOSPITAL. CM TO CONTINUE TO FOLLOW AND ASSIST IF NEEDED. Arslan Hoover, CASE MANAGEMENT DCPIA - Discharge Planning Initial Assessment Updated by [email or web address]: Arslan Hoover on 10/19/18 5:48 pm * Is the patient Alert and Oriented? Yes * How many steps to enter\\exit or inside your home? NONE * PCP NONE - [facility] REFERRED * Pharmacy [facility] [place] * Preadmission Environment Home with Family * ADLs Independent * Equipment None * Other Equipment NO MEDICAL EQUIPMENT PROVIDER PREFERENCE * List name and contact numbers for known caregivers / representatives who currently or will assist patient after discharge: NANCY QUIJANO, MOTHER, DARIANA GARBER, SIGNIFICANT OTHER, * Verbal permission to speak to the caregivers and representatives has been obtained from the patient. Yes * Community resources currently utilized None * Please name any agencies selected above. NONE * Additional services required to return to the preadmission environment? No * Can the patient safely return to the preadmission environment? Yes * Has this patient been hospitalized within the prior 30 days at any hospital? No Last DP export: 10/19/18 4:48 pm Patient Name: LB QUIJNAO Page 44728 at 1757 All edits/amendments must be made on the electronic document DICTATION DATE: 10/19/181755 FOUR ROLL CALENDER OPERATOR: ALE 10/19/181755 RPT#: [id number] DC DATE: STATUS: ADM IN [facility] [address] [place] [address] END OF REPORT
--- NOTE | 2018-10-19 18:46 | NUR ---
LYING QUIETLY. DENIES ANY NEEDS. NO CHANGES THIS SHIFT
--- NOTE | 2018-10-19 19:30 | NUR ---
RESUMING PATIENT CARE. PATIENT IS ALERT AND ORIENTED, RESTING COMFORTABLY IN BED. RESPIRATIONS ARE EVEN AND UNLABORED. NO S/S OF DISTRESS. NO C/O PAIN. CALL LIGHT WITHIN REACH. PATIENT BOARD UPDATED. WILL CPOC.
[2018-10-19 20:00] VITALS: BP 137/73
[2018-10-20 00:06] VITALS: BP 153/68
[2018-10-20 04:00] VITALS: BP 125/75
[2018-10-20 05:37] LABS: BASOPHILS 0.3 % (0-2); HEMATOCRIT 39.6 % (42.0-54.0); HEMOGLOBIN 13.4 g/dL (13.5-17.5); IMMATURE GRANULOCYTES 0.2 % (0-5); LYMPHOCYTES 34.6 % (15-50); MCH 29.6 pg (26.0-34.0); MCHC 33.8 g/dL (31.0-37.0); MCV 87.4 fL (80.0-100.0); MEAN PLATELET VOLUME 10.4 fL (7.4-10.4); MONOCYTES 14.7 % (2-11); NEUTROPHILS 49.2 % (40-80); PLATELET COUNT 282 10x3/uL (130-400); RBC 4.53 10x6/uL (4.20-6.10); RDW 13.6 % (11.5-14.5)
[2018-10-20 06:00] LABS: ALBUMIN 2.3 g/dL (3.4-5.0); ANION GAP 12.9 mmol/L (8-16); BILIRUBIN - TOTAL 1.07 mg/dL (0.2-1.3); CALCIUM 8.5 mg/dL (8.5-10.1); CARBON DIOXIDE 28.7 mmol/L (21.0-32.0); CREATININE - SERUM 1.3 mg/dL (0.6-1.3); MAGNESIUM - SERUM 1.9 mg/dL (1.8-2.4); PROTEIN - SERUM 5.6 g/dL (6.4-8.2)
[2018-10-20 06:09] LABS: POTASSIUM - SERUM 3.6 mmol/L (3.5-5.1)
[2018-10-20 07:47] VITALS: BP 128/61
--- NOTE | 2018-10-20 08:42 | MORECARE ---
CASE MANAGEMENT DISCHARGE SUMMARY PATIENT: LB QUIJANO UNIT: [id number] ADM DATE: 10/19/18 AGE: 43 : 75 SEX: M ROOM/BED: D.6691 AUTHOR: JAKE,DOC PHYSICIAN: REFERRING PHYSICIAN: LANE FAYE MD DATE OF SERVICE: 10/20/18 Discharge Plan Patient Name: LB QUIJANO Facility: [facility]:[place] : 1975 Planned Disposition: Home Anticipated Discharge Date: 10/19/18 Discharge Date: Expected LOS: 1 Initial Reviewer: [email or web address] Initial Review Date: 10/19/2018 Generated: 10/20/18 9:42 am Comments DCP- Discharge Planning Updated by [email or web address]: Arslan Hoover on 10/20/18 7:[address] Patient Name: LB QUIJANO Encounter No: [id number] : 1975 Primary Insurance: [employer] JASON Anticipated DC Date: 10-19-2018 Planned Disposition: Home DCP follow-up note: CM CALLED [facility] COURT, , SPOKE TO ZAKIA, NOTIFIED HER OF PT'S ADMISSION AND PRESENCE IN HOSPITAL THIS MORNING. CM FAXED LETTER TO THE COURT REQUESTED BY PATIENT, FAX [phone]. FAX CONFIRMATION PROVIDED TO PT IN ROOM. PT DENIES FURTHER NEEDS. CM TO FOLLOW AND ASSIST IF NEEDED. Arslan Hoover, CASE MANAGEMENT DCP- Discharge Planning Updated by [email or web address]: Arslan Hoover on 10/19/18 4:[address] Patient Name: LB QUIJANO Encounter No: [id number] : 1975 Primary Insurance: [employer]IVATE OPTIONS JASON Anticipated DC Date: 10-19-2018 Planned Disposition: Home DISCHARGE PLANNING NOTE: CM RECEIVED ORDER TO ASSIST WITH "COURT PAPERS". CM MET WITH PT AND SIGNIFICANT OTHER OF TWO YEARS IN ROOM TO DISCUSS DISCHARGE PLANNING AND NEEDS. LB QUIJANO provided verbal consent to discuss current and ongoing needs with/in the presence of: DARIANA GARBER. PT REPORTS LIVING AT HOME INDEPENDENTLY WITH HIS SIGNIFICANT OTHER AND TODDLER CHILD. PT HAS NO MEDICAL EQUIPMENT AND NO OUTSIDE SERVICES ASSISTING IN THE HOME. CM DISCUSSED AVAILABILITY OF HOME HEALTH, REHAB SERVICES AND MEDICAL EQUIPMENT. PT DENIES DISCHARGE NEEDS, REPORTS HIS SIGNIFICANT OTHER WILL PICK HIM UP FOR DISCHARGE HOME. PT REPORTS HAVING SCHEDULED HEARING IN CIRCUIT COURT OF [facility] TOMORROW AND WOULD LIKE CM TO SEND EXCUSE TO THE PUBLIC DEFENDERS OFFICE OF [facility] FOR TOMORROW SINCE PT IS IN THE HOSPITAL. CM EXPLAINED THAT CM WILL FAX TO [facility] IN THE MORNING IF PT IS STILL IN HOSPITAL. PT DENIES FURTHER NEEDS. IF PT IS STILL IN THE HOSPITAL TOMORROW MORNING, 10-20-18, CM TO CONTACT THE RELAY SHOP SUPERVISOR OF [facility] AND PROVIDE LETTER TO THE COURT INFORMING OF PT BEING ADMITTED TO HOSPITAL. CM TO CONTINUE TO FOLLOW AND ASSIST IF NEEDED. Arslan Hoover, CASE MANAGEMENT DCPIA - Discharge Planning Initial Assessment Updated by [email or web address]: Arslan Hoover on 10/19/18 5:48 pm * Is the patient Alert and Oriented? Yes * How many steps to enter\\exit or inside your home? NONE * PCP NONE - [facility] * Pharmacy [facility] * Preadmission Environment Home with Family * ADLs Independent * Equipment None * Other Equipment NO MEDICAL EQUIPMENT PROVIDER PREFERENCE * List name and contact numbers for known caregivers / representatives who currently or will assist patient after discharge: NANCY QUIJANO, MOTHER, DARIANA GARBER, SIGNIFICANT OTHER, * Verbal permission to speak to the caregivers and representatives has been obtained from the patient. Yes * Community resources currently utilized None * Please name any agencies selected above. NONE * Additional services required to return to the preadmission environment? No * Can the patient safely return to the preadmission environment? Yes * Has this patient been hospitalized within the prior 30 days at any hospital? No Last DP export: 10/19/18 4:57 pm Patient Name: LB QUIJANO Page 11772 at 0842 All edits/amendments must be made on the electronic document DICTATION DATE: 10/20/18841 STRANDING MACHINE OPERATOR HELPER: ALE 10/20/18841 RPT#: [id number] DC DATE: STATUS: ADM IN [facility] [address] [place] [address] END OF REPORT
[2018-10-20 11:10] VITALS: BP 128/61
[2018-10-20 15:28] VITALS: BP 125/68
--- NOTE | 2018-10-20 19:50 | NUR ---
RESUMED CARE OF PT, LYING IN BED RESPIRATIONS EVEN AND UNLABORED ON ROOM AIR. LEFT AC SALINE LOCKED. 79 SR ON TELEMETRY. CALL LIGHT IN REACH. SEE NURSE ASSESSMENT.
[2018-10-20 20:00] VITALS: BP 119/56
[2018-10-21] VITALS: BP 140/69
[2018-10-21 04:00] VITALS: BP 108/41
--- NOTE | 2018-10-21 04:26 | NUR ---
CERTIFIED PERSONAL FINANCE COUNSELOR AT BEDSIDE TO OBTAIN VITALS, CALL LIGHT IN REACH. WILL CONTINUE WITH PLAN OF CARE.
[2018-10-21 05:53] LABS: BASOPHILS 0.4 % (0-2); EOSINOPHILS 1.4 % (0-7); HEMATOCRIT 44.6 % (42.0-54.0); HEMOGLOBIN 15.4 g/dL (13.5-17.5); IMMATURE GRANULOCYTES 0.3 % (0-5); LYMPHOCYTES 28.7 % (15-50); MCHC 34.5 g/dL (31.0-37.0); MCV 86.9 fL (80.0-100.0); MEAN PLATELET VOLUME 10.1 fL (7.4-10.4); MONOCYTES 13.6 % (2-11); NEUTROPHILS 55.6 % (40-80); PLATELET COUNT 288 10x3/uL (130-400); RBC 5.13 10x6/uL (4.20-6.10); RDW 13.2 % (11.5-14.5); WBC 7.3 10x3/uL (4.8-10.8)
[2018-10-21 06:24] LABS: ALBUMIN 2.6 g/dL (3.4-5.0); ANION GAP 11.9 mmol/L (8-16); BILIRUBIN - TOTAL 1.08 mg/dL (0.2-1.3); CALCIUM 8.8 mg/dL (8.5-10.1); CARBON DIOXIDE 30.6 mmol/L (21.0-32.0); CREATININE - SERUM 1.6 mg/dL (0.6-1.3); MAGNESIUM - SERUM 1.9 mg/dL (1.8-2.4); POTASSIUM - SERUM 3.5 mmol/L (3.5-5.1); PROTEIN - SERUM 6.6 g/dL (6.4-8.2)
--- NOTE | 2018-10-21 08:02 | NUR ---
AM ROUNDS COMPLETED. INTRODUCED MYSELF TO PT PRIMARY RN FOR TODAYS SHIFT. SHIFT ASSESSMENT COMPLETED. PT STATES HE IS FEELING GREAT OVERALL. PTS SWELLING IS RESOLVED AND HE IS BACK AT BASELINE. PT IS HOPING TO BE DISCHARGED TODAY WILL DISCUSS WITH PRIMARY. PROVIDED PT WITH AM MEDICATION VIA L.AC PIV FLUSHES WITHOUT ANY DIFFICULTIES AND DRSG ADHERED TO SKIN. SWAP CAPS IN USE. PTS POTASSIUM IS 3.5 PROVIDED PT WITH POTASSIUM PILL PER ELECTROLYTE PROTOCOL. PT VOICED THANKS AND DENIES ANY CURRENT PAIN OR NEEDS. CL IN REACH. WILL CTM.
[2018-10-21 09:45] VITALS: BP 140/74
[2018-10-21] MEDS ORDERED: LASIX20 MG PO ×2 (14:19→15:48)
[2018-10-21] MEDS ORDERED: K-DUR20 MEQ PO (15:48)
--- NOTE | 2018-10-21 16:01 | NUR ---
D/C PTS L.AC PIV WITH CATHETER TIP FULLY INTACT. DISCHARGE TEACHING PROVIDED AND PAPERS SIGNED. D/C TELEMETRY AND RETURNED TO [facility]. PT VERBALIZED UNDERSTANDING AND DENIES ANY QUESTIONS OR CONCERNS. PT HAS CALLED HIS TRANSPORTATION AND WAITING ON HIS RIDE. ALL BELONGINGS COLLECTED AND PT IS DRESSED AND READY TO GO.
--- NOTE | 2018-10-22 08:30 | MORECARE ---
CASE MANAGEMENT DISCHARGE SUMMARY PATIENT: LB QUIJANO UNIT: [id number] ADM DATE: 10/19/18 AGE: 43 : 75 SEX: M ROOM/BED: D.2122 AUTHOR: JAKE,DOC PHYSICIAN: REFERRING PHYSICIAN: LANE FAYE MD DATE OF SERVICE: 10/22/18 Discharge Plan Patient Name: LB QUIJANO Facility: [facility]:[place] : 1975 Planned Disposition: Home Anticipated Discharge Date: 10/21/18 Discharge Date: 10/21/2018 Expected LOS: 2 Initial Reviewer: [id number] Initial Review Date: 10/19/2018 Generated: 10/22/18 9:30 am Comments DCP- Discharge Planning Updated by [id number]: Arslan Hoover on 10/20/18 7:[address] Patient Name: LB QUIJANO Encounter No: [id number] : 1975 Primary Insurance: [employer] OPTIONS JASON Anticipated DC Date: 10-19-2018 Planned Disposition: Home DCP follow-up note: CM CALLED [facility], , SPOKE TO ZAKIA, NOTIFIED HER OF PT'S ADMISSION AND PRESENCE IN HOSPITAL THIS MORNING. CM FAXED LETTER TO THE COURT REQUESTED BY PATIENT, FAX [phone]. FAX CONFIRMATION PROVIDED TO PT IN ROOM. PT DENIES FURTHER NEEDS. CM TO FOLLOW AND ASSIST IF NEEDED. Arslan Hoover, CASE MANAGEMENT DCP- Discharge Planning Updated by [id number]: Arslan Hoover on 10/19/18 4:[address] Patient Name: LB QUIJANO Encounter No: [id number] : 1975 Primary Insurance: [employer] JASON Anticipated DC Date: 10-19-2018 Planned Disposition: Home DISCHARGE PLANNING NOTE: CM RECEIVED ORDER TO ASSIST WITH "COURT PAPERS". CM MET WITH PT AND SIGNIFICANT OTHER OF TWO YEARS IN ROOM TO DISCUSS DISCHARGE PLANNING AND NEEDS. LB QUIJANO provided verbal consent to discuss current and ongoing needs with/in the presence of: DARIANA GRABER. PT REPORTS LIVING AT HOME INDEPENDENTLY WITH HIS SIGNIFICANT OTHER AND TODDLER CHILD. PT HAS NO MEDICAL EQUIPMENT AND NO OUTSIDE SERVICES ASSISTING IN THE HOME. CM DISCUSSED AVAILABILITY OF HOME HEALTH, REHAB SERVICES AND MEDICAL EQUIPMENT. PT DENIES DISCHARGE NEEDS, REPORTS HIS SIGNIFICANT OTHER WILL PICK HIM UP FOR DISCHARGE HOME. PT REPORTS HAVING SCHEDULED HEARING IN CIRCUIT COURT OF [facility] TOMORROW AND WOULD LIKE CM TO SEND EXCUSE TO THE PUBLIC DEFENDERS OFFICE OF [facility] FOR TOMORROW SINCE PT IS IN THE HOSPITAL. CM EXPLAINED THAT CM WILL FAX TO BIAS MACHINE OPERATOR HELPER [facility] IN THE MORNING IF PT IS STILL IN HOSPITAL. PT DENIES FURTHER NEEDS. IF PT IS STILL IN THE HOSPITAL TOMORROW MORNING, 10-20-18, CM TO CONTACT THE MEDICAL RECEPTIONIST BILLER OF [facility] AND PROVIDE LETTER TO THE COURT INFORMING OF PT BEING ADMITTED TO HOSPITAL. CM TO CONTINUE TO FOLLOW AND ASSIST IF NEEDED. Arslan Hoover, CASE MANAGEMENT DCPIA - Discharge Planning Initial Assessment Updated by [email or web address]: Arslan Hoover on 10/19/18 5:48 pm * Is the patient Alert and Oriented? Yes * How many steps to enter\\exit or inside your home? NONE * PCP NONE - [facility] * Pharmacy [facility] * Preadmission Environment Home with Family * ADLs Independent * Equipment None * Other Equipment NO MEDICAL EQUIPMENT PROVIDER PREFERENCE * List name and contact numbers for known caregivers / representatives who currently or will assist patient after discharge: NANCY QUIJANO, MOTHER, DARIANA GARBER, SIGNIFICANT OTHER, * Verbal permission to speak to the caregivers and representatives has been obtained from the patient. Yes * Community resources currently utilized None * Please name any agencies selected above. NONE * Additional services required to return to the preadmission environment? No * Can the patient safely return to the preadmission environment? Yes * Has this patient been hospitalized within the prior 30 days at any hospital? No Last DP export: 10/20/18 7:42 am Patient Name: LB QUIJANO Page 37144 at 0830 All edits/amendments must be made on the electronic document DICTATION DATE: 10/22/18829 FORESTRY AID TECHNICIAN: ALE 10/22/18829 RPT#: [id number] DC DATE:10/21/18 STATUS: DIS IN [place] [id number] [place] [address] END OF REPORT
== END 2018-10-21 16:21 | disposition home or self-care (01) ==
LOC: D.ER 04:33 → D.M2 05:57 → OBSVTIME 05:57 → D.M2 05:57
PROVIDERS: Family Medicine; ADMIT Family Medicine
DX: I11.0 Hypertensive heart disease with heart failure (principal); I50.33 Acute on chronic diastolic (congestive) heart failure; I27.20 Pulmonary hypertension, unspecified; N28.9 Disorder of kidney and ureter, unspecified; I35.1 Nonrheumatic aortic (valve) insufficiency; K21.9 Gastro-esophageal reflux disease without esophagitis; Z72.0 Tobacco use

== ENCOUNTER 2019-01-17 20:51 | Observation (INO) | payer MEDICAID ==
[~2019-01-17] VITALS: Ht 165.1 cm; Wt 73.2 kg
--- NOTE | ~2019-01-17 | OP ---
PATIENT NAME: BL QUIJANO MEDICAL RECORD: [id number] :[birth year] LOCATION:D.M2 D.2118 ADMISSION DATE:01/18/19 SURGEON: IJEOMA WILKES MD DATE OF OPERATION: 01/18/2019 DATE OF SERVICE: 01/18/2019 PROCEDURES: 1. Left heart catheterization. 2. Selective coronary angiography. 3. Left ventriculogram. INDICATION: Non-Q-wave myocardial infarction, elevated troponin, chest pain, shortness of breath, cardiomyopathy. PROCEDURE IN DETAIL: After informed consent was obtained and after detailed explanation of risks, benefits as well as alternative therapies, the patient elected to proceed with angiogram and heart catheterization. The right radial area was prepped and draped in normal sterile fashion. Right radial artery was cannulated via modified Seldinger technique with placement of 5-Eritrean sheath. All catheters exchanged through this sheath. FINDINGS: The left ventriculogram was performed in standard 30-degree [place] view, reveals a dilated cardiomyopathy, ejection fraction of 40%, severe aortic insufficiency. SELECTIVE CORONARY ANGIOGRAPHY: Left main, left anterior descending, left circumflex, right coronary artery are all smooth-walled vessels with no angiographic evidence of coronary artery disease. OVERALL IMPRESSION: Nonischemic cardiomyopathy, ejection fraction worse than it was last year, now at 40% range and the left ventricle appears to be more dilated. He is on heart-lung transplant list at [facility]. At this time, mainstay of therapy will be diuretics. TRANSINT:[id number] Voice Confirmation ID: [id number] DOCUMENT ID: [id number] IJEOMA WILKES MD CC: [id number] DICTATION DATE: 01/18/19 1056 MILITARY TECHNOLOGY MANAGER: 01/18/[address] [facility] [address] [place] [address]
--- NOTE | ~2019-01-17 | EC ---
PATIENT:LB QUIJANO DATE OF SERVICE: 01/18/19 SEX: M MEDICAL RECORD: [id number] DATE OF : [birth year] LOCATION:D.M2 D.211 AGE OF PATIENT: 43 ADMISSION DATE: 01/18/19 REFERRING PHYSICIAN: INTERPRETING PHYSICIAN: IJEOMA CHU MD ECHOCARDIOGRAM REPORT ECHO CHARGES 5 ECHO LIMITED Date: 01/18/19 1 DOPPLER ECHO COLOR FLOW 2 DOPPLER ECHO PULSE CLINICAL DIAGNOSIS: CHF ECHOCARDIOGRAPHIC MEASUREMENTS (adult normal given) AC root (d.<3.7cm) 0 cm LV Septum d (<1.2 cm> 0 cm Valve Excursion 0 cm LV Septum (systole) 0 cm Left Atria (s.<4.0cm> 0 cm LVPW d(<1.2cm) 0 cm RV (d.<2.3cm) 0 cm LVPW (sytole) 0 cm LV diastole(<5.6CM) 0 cm MV E-F(>70mm/sec) 0 cm LV systole 0 cm LVOT Diameter 0 cm MV exc.(>10mm) 0 cm Est.ejection fraction (50-75%) % DOPPLER: LVIT 0 cm/sec A 0 cm/sec E 0 cm/sec LA 0 cm/sec RVSP 43.4 mmHg LVOT 0 cm/sec AOP1/2T 342.0m/s Asc. Ao 0 cm/sec RVOT 0 cm/sec RA 0 cm/sec PA 0 cm/sec AV Gradient Peak 0 mmHg AV Mean 0 mmHg AV Area 0 cm MV Gradient Peak 0 mmHg MV Mean 0 mmHg MV Area 0 cm COMMENTS: LIMITED STUDY Gas Plumbing Inspector: 1 SIOBHAN GARRETT Carton Marker Machine: 1 Dr. Chu TAPE# PACS Pericardial Effusion Y DATE OF SERVICE: FINDINGS: 1. Left ventricular chamber size is upper limits of normal. Left ventricular systolic function is mildly depressed at 45% to 50%. 2. Left atrium, right atrium, and right ventricular chamber sizes are mildly dilated. 3. Valvular structures have normal structure and motion. 4. Doppler interrogation reveals severe aortic insufficiency, [id number] mitral regurgitation, moderate tricuspid regurgitation. No ECHOCARDIOGRAM REPORT [id number] LB QUIJANO other valvular insufficiency or stenosis. Pulmonary systolic pressure is estimated 43 mmHg. 5. No evidence of pericardial effusion or left ventricular thrombus. TRANSINT:[id number] Voice Confirmation ID: [id number] DOCUMENT ID: [id number] IJEOMA CHU MD CC: [id number] DICTATION DATE: 01/19/19 1222 EPIC AMBULATORY ANALYSTS: 01/19/19 1230 DIS IN 01/19/19 [place] [id number] [place] [id number]
--- NOTE | ~2019-01-17 | HEMODYNAMI ---
PATIENT:LB QUIJANO MEDICAL RECORD: [id number] : 75 [facility] ADMISSION DATE: 01/18/19 Generatedon:01/18/201910:53 Patient name: LB QUIJANO Patient #: [id number] SSN: D OB: 1975 Date of study: 01/18/2019 Page: Of Hemodynamic Procedure Report Patient Data Patient Demographics Procedure consent was obtained First Name: LB Gender: Male Last Name: SAMM : 1975 [facility] Initial: C Age: 43 year(s) Patient #: [id number] Race: Black Additional ID: [id number] Contact details Address: [address] [place] [address] State: [place] City: [place] Zip code: [address] Past Medical History Allergies: No known allergies Admission Admission Data Admission Date: 01/18/2019 Admission Time: 0:19 Room #: D.2118 Procedure Procedure Types Cath Procedure Diagnostic Procedure LHC LHC w/Coronaries Procedure Description Procedure Date Procedure Date: 01/18/2019 Procedure Start Time: 10:43 Procedure End Time: 10:52 Procedure Staff Name Function Jonathan Chu MD Performing Physician Izaiah Samuel RN [employer] Lazara Hand RT Monitor Manny Gustafson RT Scrub Guillaume Woods RN Nurse Procedure Data Cath Procedure Fluoroscopy Diagnostic fluoroscopy Total fluoroscopy Time: 2.6 time: 2.6 min min Diagnostic fluoroscopy Total fluoroscopy dose: 277 dose: 277 mGy mGy Contrast Material Contrast Material Type Amount (ml) Isovue 300 56 Entry Location Entry Primary Successful Side Size Upsize Upsize Entry Closure Evans ccessful Closure Location (Fr) 1 (Fr) 2 (Fr) Remarks Device Remarks Radial Right 6 Fr Mechanical artery Short Compression Estimated blood loss: 5 ml Diagnostic catheters Device Type Used For End Catheter Placement DIAGNOSTIC Barlow 110cm 5 Procedure Fr catheter ([id number]) DIAGNOSTIC AR2 MOD 5 Fr Procedure catheter ([id number]) Procedure Complications No complications Procedure Medications Medication Administration Route Dosage Oxygen etCO2 Nasal cannula 2 l/min Lidocaine 2% added to field 20 Heparin Flush Bag added to field 2 bags (1000units/500ml NS) 0.9% NaCl I.V. ml/hr Radial Cocktail I.A. 1 syringe (Verapamil 2mg/Nitro 400mcg/Heparin 1500units) Versed I.V. 1 mg Versed I.V. 1 mg Fentanyl I.V. 50 mcg Fentanyl I.V. 50 mcg Hemodynamics Rest Heart Rate: 68 (bpm) Snapshots Pre Cath Intra NCS Post Cath Vital Signs Time Heart Resp SPO2 etCO2 NIBP (mmHg) Rhythm Pain Sedation Rate (ipm) (%) (mmHg) Status Level (bpm) 10:30:12 76 28 99 30 132/63(105) NSR 0 (11) 10(A) , No pain 10:34:35 74 18 94 30.8 137/53(114) NSR 0 (11) 10(A) , No pain 10:38:55 76 20 97 26.2 116/53(97) NSR 0 (11) 10(A) , No pain 10:43:15 67 27 99 30 122/47(96) NSR 0 (11) 10(A) , No pain 10:47:33 65 21 95 30 118/44(78) NSR 0 (11) 9(A) , No pain 10:51:53 65 18 96 33.8 123/45(85) NSR 0 (11) 10(A) , No pain Medications Time Medication Route Dose Verified Delivered Reason Notes Effectiveness by by 10:38:50 Oxygen etCO2 2 l/min Jonathan Galaviz used for Nasal Vlad Woods RN procedure cannula 10:38:57 Lidocaine 2% added 20ml Jonathan Castillo for local to vial Vlad Chu MD anesthetic field 10:39:05 Heparin Flush added 2 bags Jonathan Castillo used for Bag to Vlad Chu MD procedure (1000units/500ml field NS) 10:39:24 0.9% NaCl I.V. ml/hr Jonathan Galaviz Per Vlad Woods RN physician 10:43:18 Radial Cocktail I.A. 1 Jonathan Castillo for (Verapamil syringe Vlad Chu MD vasodilation 2mg/Nitro 400mcg/Heparin 1500units) 10:43:33 Versed I.V. 1 mg Jonathan Galaviz for sedation Vlad Woods RN 10:43:40 Fentanyl I.V. 50 mcg Jonathan Galaviz for sedation Vlad Woods RN 10:45:34 Versed I.V. 1 mg Jonathan Galaviz for sedation Vlad Woods RN 10:45:41 Fentanyl I.V. 50 mcg Jonathan Galaviz for sedation Vlad Woods RN Procedure Log Time Note 10:13:30 Signed procedure consent form obtained from patient. 10:13:32 Diagnostic Cath status Urgent 10:13:33 Time tracking: Regular hours (M-F 7:00 - 5:00) 10:13:37 Plan of Care:Hemodynamics will remain stable., Cardiac rhythm will remain stable., Comfort level will be maintained., Respiratory function will remain adequate., Patient/ family verbilizes understanding of procedure., Procedure tolerated without complication., Recovers from procedure without complications.. 10:14:22 Izaiah Samuel RN sent for patient. Start room use. 10:23:48 Patient received from Med II to CCL 1 Alert and oriented. Tansferred to table in Supine position. 10:23:49 Warm blankets applied, and chelle hugger turned on for patient comfort. 10:23:50 Correct patient and procedure confirmed by team. 10:23:51 ECG and BP/O2 sat monitors applied to patient. 10:24:01 H&P Date Dictated: 01/17/2019 Within 30 days and on chart.. 10:24:03 Pre-procedure instructions explained to patient. 10:24:03 Pre-op teaching completed and patient verbalized understanding. 10:24:04 Family in waiting room. 10:24:05 Patient NPO since Midnight. 10:24:48 Full Disclosure recording started 10:24:59 Patient allergic to No known allergies 10:25:02 Is the patient allergic to Iodine/contrast media? No. 10:26:47 Is patient on blood thinner?No 10:26:50 Patient diabetic? No. 10:27:00 Previous problem with sedation/anesthesia? No ? 10:27:02 Snore? Yes 10:27:03 Sleep apnea? No 10:27:04 Deviated septum? No 10:27:05 Opens mouth fully? Yes 10:27:06 Sticks out tongue? Yes 10:27:08 Airway obstruction? No ? 10:27:11 Dentures? No ? 10:27:49 Pre procedure: right dorsailis pedis pulse 2+ Normal; easily identifiable; not easily obliterated 10:27:52 Modified Maycol's test Ulnar < 7 seconds 10:27:53 Patient pain scale 0/10 ?. 10:28:02 IV patent on arrival in left forearm with 0.9% NaCl at [facility]. 10:28:04 Lab results completed and on chart. 10:28:11 Right Radial & Right Groin area was prepped with chlora-prep and draped in sterile fashion 10:28:12 Alarms reviewed by R. N. 10:28:12 Sharps counted by scrub and verified by R.N. 10:28:19 Use device set Radial Dx or PCI 10:28:21 ACIST Syringe (31075) opened to sterile field. 10:28:21 Medline Cath Pack ([id number]) opened to sterile field. 10:28:22 Bag Decanter (2002S) opened to sterile field. 10:28:22 DIAGNOSTIC WIRE .035 260cm J wire (301150) opened to sterile field. 10:28:23 ACIST Hand Control (07879) opened to sterile field. 10:28:23 ACIST Manifold (18100) opened to sterile field. 10:28:24 Tegaderm 4 x 4 (1626W) opened to sterile field. 10:28:24 MBrace Wrist Support ([id number]) opened to sterile field. 10:28:27 SHEATH 6FR Slender (42-3775) opened to sterile field. 10:29:07 Vital chart was started 10:30:58 Baseline sample Acquired. 10:31:00 Rhythm: sinus rhythm 10:36:34 TUBING High Pressure Extension (IABP) opened to sterile field. 10:38:50 Oxygen 2 l/min etCO2 Nasal cannula was administered by Guillaume Woods RN; used for procedure; 10:38:57 Lidocaine 2% 20ml vial added to field was administered by Jonathan Chu MD; for local anesthetic; 10:39:05 Heparin Flush Bag (1000units/500ml NS) 2 bags added to field was administered by Jonathan Chu MD; used for procedure; 10:39:24 0.9% NaCl ml/hr I.V. was administered by Guillaume Woods RN; Per physician; 10:41:00 Zero performed for pressure channel P1 10:41:04 Zero performed for pressure channel P1 10:42:16 --------ALL STOP TIME OUT------ :42:16 Final Timeout: patient, procedure, and site verified with staff and physician. All members of the team are in agreement. 10:42:18 Right Radial & Right Groin site verified by team. 10:42:21 Maximum allowable Isovue 300 dose 300ml. Physician notified. (300ml for normal creatinines. For patients with creatinine of 1.7 or higher multiply weight(kg) x 5 divided by creatinine.) 10:42:24 Fire Safety Assessment: A--An alcohol-based skin anteseptic being used preoperatively., C--Open oxygen or nitrous oxide is being used., D--An ESU, laser, or fiber-optic light is being used. 10:42:27 Physical assessment completed. ASA score P 2 - A patient with mild systemic disease as per Jonathan Chu MD. 10:42:29 Sedation plan: IV Moderate Sedation Medication:Versed, Fentanyl 10:42:46 Procedure started. 10:43:10 Local anesthetic to right radial artery with Lidocaine 2% by Jonathan Chu MD.INITIAL ACCESS ONLY 10:43:18 Radial Cocktail (Verapamil 2mg/Nitro 400mcg/Heparin 1500units) 1 syringe I.A. was administered by Jonathan Chu MD; for vasodilation; 10:43:32 A 6 Fr Short sheath was inserted into the Right Radial artery 10:43:33 Versed 1 mg I.V. was administered by Guillaume Woods RN; for sedation; 10:43:40 Fentanyl 50 mcg I.V. was administered by Guillaume Woods RN; for sedation; 10:44:00 A DIAGNOSTIC Barlow 110cm 5 Fr catheter (455517) was advanced over the wire and used for Procedure. 10:44:56 LV gram done using ROCKWELL 10:45:01 Injector settings: Ml/sec: 7, Volume: 15, 10:45:15 EF : 30 % 10:45:34 Versed 1 mg I.V. was administered by Guillaume Woods RN; for sedation; 10:45:41 Fentanyl 50 mcg I.V. was administered by Guillaume Woods RN; for sedation; 10:46:11 Catheter exchanged over wire. 10:46:18 UNABLE TO ENGAGE 10:47:32 A DIAGNOSTIC AR2 MOD 5 Fr catheter ([id number]) was advanced over the wire and used for Procedure. 10:47:48 RCA angiography performed. 10:47:52 Catheter exchanged over wire. 10:48:11 GUIDE 6FR XBLAD 4.0 catheter ([id number]) opened to sterile field. 10:48:20 6 Fr XBLAD 4 guide catheter was inserted over the wire 10:49:24 LCA angiography performed. 10:49:25 Catheter removed. 10:49:32 TR BAND Standard ([id number]) opened to sterile field. 10:49:36 Procedure ended.(Physican Out) 10:49:49 Fluoroscopy time 02.60 minutes. 10:49:52 Fluoroscopy dose: 277 mGy 10:49:52 Flurop Dose total: 277 10:49:55 Contrast amount:Isovue 300 56ml. 10:50:01 Sheath removed intact; hemostasis achieved with Mechanical Compression to the Right Radial artery. 10:50:15 TR band inflated with 11cc of air. 10:50:18 Post-procedure physical assessment completed. ASA score P 2 - A patient with mild systemic disease as per Jonathan Chu MD. 10:50:21 Post procedure rhythm: sinus rhythm 10:50:22 Estimated blood loss: 5 ml 10:50:23 Post procedure instruction explained to patient.Patient verbalizes understanding. 10:50:24 Patient needs reinforcement of post procedure teaching. 10:51:06 Procedure and supply charges have been captured, reviewed, submitted and are correct. 10:51:09 Procedure Complication : No complications 10:52:50 Vital chart was stopped 10:52:50 See physician's report for complete and final results. 10:52:54 Report given to [facility]. 10:52:57 Patient transfered to [facility] with Bed. 10:52:58 Procedure ended. 10:52:58 Full Disclosure recording stopped 10:53:01 End room use (Document Last) Device Usage Item Name Manufacture Quantity Catalog Number Hospital Part Current Minim al Lot# / Charge Number Stock Stock Serial# Code ACIST Acist 1 29322 [id number] 407043 046231 20 Syringe ExaDigm (21656) SkemA Inc Medline Medline 1 [id number] 334641 52951 794764 5 Cath Pack ([id number]) Bag Microtek 1 822090 70820 571198 5 Decanter Medical Inc. () DIAGNOSTIC [facility] [place] 1 726144 733003 674314 972509 30 WIRE .035 260cm J wire (990783) ACIST Hand Acist 1 37304 164441 183377 593473 5 Control Medical (48298) Systems Inc ACIST Acist 1 94299 179738 675177 535011 5 Manifold Medical (22310) Systems Inc Tegaderm 4 3M 1 1626W 312016 802955 878332 5 x 4 (1626W) MBrace Advanced 1 140-0250-00 253120 55429 488555 5 Wrist Vascular Support Dynamics ([id number]) SHEATH 6FR Terumo 1 [id number] 830576 199296 667407 5 Slender (80-1060) TUBING High Merit 1 [id number] 913851 150875 5 5 Pressure Medical Extension (IABP) DIAGNOSTIC Terumo 1 09-3065 802963 495926 506024 5 Barlow 110cm 5 Fr catheter (893424) DIAGNOSTIC Cardinal 1 015348H 999826 162703 110240 20 AR2 MOD 5 Health Fr catheter (710252Z) GUIDE 6FR Cardinal 1 [id number] 249265 388711 699358 3 XBLAD 4.0 Health catheter (41255074) TR BAND Terumo 1 [id number] 385430 534768 227291 40 Standard ([id number]) Signature Audit [place] Stage Time Signature Unsigned Intra-Procedure 01/18/2019 Lazara Hand 10:53:39 AM RT(R) Signatures Monitor : Lazara Hand Signature : RT Date : Time : [place] [address] [place] [address]
--- NOTE | ~2019-01-17 | CN ---
PATIENT NAME:LB QUIJANO MEDICAL RECORD: [id number] : 75 LOCATION:[facility] D.2118 ADMIT DATE: 01/18/19 ACCOUNT: [id number] CONSULTING PHYSICIAN: IJEOMA WILKES MD REFERRING PHYSICIAN: BRIGETTE TOLLIVER MD DATE OF CONSULTATION: 01/18/2019 DIAGNOSES: 1. Non-Q-wave myocardial infarction. 2. Coronary artery disease. 3. Congestive heart failure, chronic systolic dysfunction. HISTORY OF PRESENT ILLNESS: This is a gentleman who gives an odd story that he lives here in [place], but he was at [facility] and then transferred to [facility]. He underwent cardiac catheterization at [facility]. They told him his heart muscle was weak and then he needed bypass surgery, but he could not have it until he had a primary care physician. He has not been able to obtain a primary care physician. He continues to have chest pain. The chest pain has worsened. He is now admitted here. His troponin is elevated. His EKG has ST-T abnormalities compatible with inferior ischemia. He continues to have chest pain. PHYSICAL EXAMINATION: GENERAL APPEARANCE: Well-nourished, well-developed, appears stated age. Level of distress, comfortable. PSYCHIATRIC: Mental status, alert, normal affect. Orientation, oriented to time, place and person. EYES: Lids and conjunctiva, noninjected. No discharge, no pallor. ENT: Lips, teeth, gums, normal dentition. Oropharynx, no cyanosis, no pallor. NECK: Carotid arteries, bilateral normal upstroke, no bruits, no thrills. JUGULAR VEINS: No jugular venous pressure or distention. CERVICAL LYMPH NODES: Nontender, nonenlarged. THYROID: Not enlarged. Nontender. No nodules. LUNGS: Respiratory effort, unlabored. CHEST: Normal curvature. No thoracic deformity. No chest wall tenderness. Percussion, resonant. Auscultation, clear. No wheezes, no rales, no rhonchi. CARDIOVASCULAR: Precordial exam, nondisplaced. No heaves or pericardial thrills. Rate and rhythm, regular. Heart sounds, normal S1, normal S2. No S3, no gallop, no rub. Systolic murmur, not heard. Diastolic murmur, not heard. EXTREMITIES: No cyanosis, no edema. Peripheral pulses, full and equal in all extremities, except as noted. No bruits appreciated. ABDOMEN: Soft, nondistended. Normal aorta. No bruit. Nontender. No masses. Liver, nontender, no hepatomegaly. Spleen, nontender, no splenomegaly. MUSCULOSKELETAL: No joint tenderness. No joint swelling. No erythema. NEUROLOGICAL: Normal gait, normal strength, normal tone. SKIN: Warm and dry. OVERALL IMPRESSION: Chest pain compatible with angina. He wants a workup here, which the story is unusual that no definitive treatment was provided. At this time, we will start him on nitrates and a beta yessica, proceed with coronary angiography and echocardiogram for the best method of revascularization for this young gentleman. TRANSINT:[id number] Voice Confirmation ID: [id number] DOCUMENT ID: [id number] CONSULT REPORT [id number] LB QUIJANO JEFFREY MD CC: [id number] DICTATION DATE: 01/18/1936 STUFFING MACHINE OPERATOR: 01/18/19 1018 ADM IN [facility] [address] [place] [address]
[~2019-01-17 20:51] MED LIST changes: +ISOSORBIDE MONO30 M1 PO; +LASIX40 MG PO
[2019-01-17 21:50] LABS: BASOPHILS 0.5 % (0-2); EOSINOPHILS 0.5 % (0-7); HEMATOCRIT 43.6 % (42.0-54.0); HEMOGLOBIN 15.7 g/dL (13.5-17.5); IMMATURE GRANULOCYTES 0.2 % (0-5); LYMPHOCYTES 29.6 % (15-50); NEUTROPHILS 59.2 % (40-80); PLATELET COUNT 238 10x3/uL (130-400); RBC 5.07 10x6/uL (4.20-6.10); RDW 14.2 % (11.5-14.5); WBC 6.5 10x3/uL (4.8-10.8)
[2019-01-17 21:59] VITALS: BP 144/72
[2019-01-17 22:01] LABS: APTT 28.3 SECONDS (22.8-39.4); INR 1.11 (0.85-1.17); PROTIME 13.8 SECONDS (11.6-15.0)
[2019-01-17 22:10] VITALS: BP 141/68
[2019-01-17 22:12] LABS: ALBUMIN 3.5 g/dL (3.4-5.0); ALKALINE PHOSPHATASE 57 U/L (46-116); ALT (SGPT) 12 U/L (10-68); BILIRUBIN - TOTAL 1.53 mg/dL (0.2-1.3); CALC OSMOLALITY 281 mosm/kg (275-300); CALCIUM 8.9 mg/dL (8.5-10.1); CARBON DIOXIDE 29.3 mmol/L (21.0-32.0); CHLORIDE - SERUM 102 mmol/L (98-107); CREATININE - SERUM 1.5 mg/dL (0.6-1.3); GLUCOSE 76 mg/dL (74-106); POTASSIUM - SERUM 4.2 mmol/L (3.5-5.1); PROTEIN - SERUM 7.6 g/dL (6.4-8.2); SODIUM 140 mmol/L (136-145); UREA NITROGEN 25 mg/dL (7-18); eGFR NON AFRICAN AMERICAN 54 mL/min (90-120)
[2019-01-17 22:26] LABS: CKMB 2.4 U/L (0.0-3.6); CREATINE KINASE 233 UL (21-232); PRO BNP 3806 pg/mL (0-125); TROPONIN-I 0.056 ng/mL (0.000-0.060)
[2019-01-18] VITALS: BP 145/86
--- NOTE | 2019-01-18 00:17 | NUR ---
PT HAS URINE OUTPUT OF 350ML CLEAR YELLOW AT THIS TIME. PT SITTING IN STRECHER WACTHING TV.
[2019-01-18 01:42] VITALS: BP 151/55; BMI 25.0
[2019-01-18 04:09] VITALS: BP 111/51
[2019-01-18 06:22] LABS: BASOPHILS 0.3 % (0-2); EOSINOPHILS 0.9 % (0-7); HEMATOCRIT 44.1 % (42.0-54.0); HEMOGLOBIN 15.6 g/dL (13.5-17.5); IMMATURE GRANULOCYTES 0.2 % (0-5); MCH 30.8 pg (26.0-34.0); MCHC 35.4 g/dL (31.0-37.0); MCV 87.2 fL (80.0-100.0); MEAN PLATELET VOLUME 10.9 fL (7.4-10.4); MONOCYTES 15.6 % (2-11); PLATELET COUNT 241 10x3/uL (130-400); RBC 5.06 10x6/uL (4.20-6.10); RDW 14.2 % (11.5-14.5); WBC 6.6 10x3/uL (4.8-10.8)
[2019-01-18 07:12] LABS: ANION GAP 13.4 mmol/L (8-16); CALCIUM 8.5 mg/dL (8.5-10.1); CREATININE - SERUM 1.4 mg/dL (0.6-1.3); TROPONIN-I 0.057 ng/mL (0.000-0.060)
[2019-01-18 07:17] LABS: POTASSIUM - SERUM 3.4 mmol/L (3.5-5.1)
--- NOTE | 2019-01-18 09:15 | NUR ---
URINE SPECIMEN COLLECTED AND TAKEN TO LAB. WILL MONITOR.
[2019-01-18 09:16] VITALS: BP 141/63
[2019-01-18 09:27] LABS: UDS - AMPHET NEGATIVE QUAL (NEGATIVE); UDS - BARB NEGATIVE QUAL (NEGATIVE); UDS - BENZO NEGATIVE QUAL (NEGATIVE); UDS - COCAINE NEGATIVE QUAL (NEGATIVE); UDS - OPIATE NEGATIVE QUAL (NEGATIVE); UDS - PCP NEGATIVE QUAL (NEGATIVE); UDS - THC POSITIVE QUAL (NEGATIVE)
--- NOTE | 2019-01-18 10:00 | NUR ---
CONSENTS SIGNED FOR [facility]. WILL CONT. PLAN OF CARE.
[2019-01-18 10:11] LABS: APPEARANCE CLEAR (CLEAR); BILIRUBIN NEGATIVE (NEGATIVE); COLOR DK YELLOW (YELLOW); GLUCOSE NEGATIVE (NEGATIVE); KETONE NEGATIVE (NEGATIVE); NITRITE NEGATIVE (NEGATIVE); PROTEIN NEGATIVE (NEGATIVE); SPECIFIC GRAVITY 1.015 (1.005-1.020)
[2019-01-18 10:13] LABS: BACTERIA FEW /hpf (NONE SEEN); EPITHELIAL CELLS 0-5 /hpf (0-5); HYALINE CAST RARE /lpf (NONE SEEN); MUCUS >1+ /lpf (NONE SEEN); RED CELLS - URINE RARE /hpf (0-5); WHITE CELLS - URINE OCC /hpf (0-5)
--- NOTE | 2019-01-18 10:25 | NUR ---
PRE-OPS GIVEN. TO AIR VALVE MECHANIC BY BED.
--- NOTE | 2019-01-18 11:22 | NUR ---
BACK FROM MACHINIST INSTRUCTOR. VS WNL. RIGHT WRIST STABLE WITH TR BAND INTACT. WILL MONITOR.
[2019-01-18 14:45] VITALS: Ht 165.1 cm; Wt 73.2 kg
--- NOTE | 2019-01-18 14:57 | NUR ---
TR BAND DCD WITHOUT BLEEDING OR HEMATOMA NOTED.
[2019-01-18 17:01] VITALS: BP 126/43
--- NOTE | 2019-01-18 19:54 | NUR ---
RESUMING PATIENT CARE. PATIENT IS ALERT AND ORIENTED, RESTING COMFORTABLY IN BED. NO S/S OF DISTRESS. NO C/O PAIN. DENIES NEEDS. CALL LIGHT WITHIN REACH. WILL CPOC.
[2019-01-18 20:00] VITALS: BP 135/59
--- NOTE | 2019-01-18 21:29 | NUR ---
PATIENT ASKED FOR A SNACK. PATIENT WAS BROUGHT A SANDWICH BOX. A LITTLE WHILE LATER PATIENT ASKED FOR ANOTHER SANDWICH BOX. WE DID NOT HAVE ANOTHER ONE. PATIENT OFFERED ANOTHER SNACK, WHICH PATIENT RECEIVED. PATIENT THEN HAD VISITOR GO TO MED/SURG AND GET A SANDWICH BOX.
[2019-01-19 00:40] VITALS: BP 113/50
[2019-01-19 05:38] VITALS: BP 124/53
[2019-01-19 08:00] VITALS: BP 133/75
[2019-01-19 09:34] LABS: ANION GAP 10.6 mmol/L (8-16); CALCIUM 9.3 mg/dL (8.5-10.1); CARBON DIOXIDE 29.1 mmol/L (21.0-32.0); CREATININE - SERUM 1.5 mg/dL (0.6-1.3); POTASSIUM - SERUM 3.7 mmol/L (3.5-5.1)
[2019-01-19] MEDS ORDERED: COREG6.25 MG PO (10:48)
[2019-01-19] MEDS ORDERED: K-DUR20 MEQ PO (10:48)
[2019-01-19] MEDS ORDERED: LASIX20 MG PO (10:48)
[2019-01-19 11:00] VITALS: BP 104/41
--- NOTE | 2019-01-19 12:09 | NUR ---
IV AND TELEMETRY DCD. DC PLANS GIVEN. UNDERSTANDING VOICED. ESCORTED TO CAR BY W/C.
--- NOTE | 2019-01-20 07:56 | MORECARE ---
CASE MANAGEMENT DISCHARGE SUMMARY PATIENT: LB QUIJANO UNIT: [id number] ADM DATE: 01/18/19 AGE: 43 : 75 SEX: M ROOM/BED: D.0488 AUTHOR: NELDA JOSEPH PHYSICIAN: REFERRING PHYSICIAN: BRIGETTE TOLLIVER MD DATE OF SERVICE: 01/20/19 Discharge Plan Patient Name: LB QUIJANO Facility: [facility]:[place] : 1975 Planned Disposition: Home Anticipated Discharge Date: 01/19/19 Discharge Date: 01/19/2019 Expected LOS: 1 Initial Reviewer: [email or web address] Initial Review Date: 01/20/2019 Generated: 01/20/19 8:56 am Patient Name: LB QUIJANO Page [id number] at 0756 All edits/amendments must be made on the electronic document DICTATION DATE: 01/20/19 0755 TIN CONTAINER STRAIGHTENER: ALE 01/20/19 0755 RPT#: [id number] DC DATE:01/19/19 STATUS: DIS IN [facility] [address] [place] [address] END OF REPORT
== END 2019-01-19 12:09 | disposition home or self-care (01) ==
LOC: D.ER 20:51 → OBSVTIME 01-18 00:19 → D.M2 01-18 00:19
PROVIDERS: Family Medicine; ADMIT Internal Medicine Nephrology; ATTEND Internal Medicine Nephrology
DX: I21.4 Non-ST elevation (NSTEMI) myocardial infarction (principal); I42.9 Cardiomyopathy, unspecified; I25.110 Atherosclerotic heart disease of native coronary artery with unstable angina pectoris; I50.23 Acute on chronic systolic (congestive) heart failure; I08.1 Rheumatic disorders of both mitral and tricuspid valves; F17.213 Nicotine dependence, cigarettes, with withdrawal; F10.10 Alcohol abuse, uncomplicated

== ENCOUNTER 2019-01-21 19:56 | Inpatient (IN) | payer MEDICAID ==
[~2019-01-21] VITALS: Ht 165.1 cm; Wt 70.6 kg
--- NOTE | ~2019-01-21 | HEMODYNAMI ---
PATIENT:LB QUIJANO MEDICAL RECORD: [id number] : 75 LOCATION:[facility] D.2[id number] ADMISSION DATE: 01/22/19 Generatedon:01/24/201914:08 Patient name: LB QUIJANO Patient #: [id number] SSN: D OB: 1975 Date of study: 01/24/2019 Page: Of Hemodynamic Procedure Report Patient Data Patient Demographics Procedure consent was obtained First Name: LB Gender: Male Last Name: SAMM : 1975 [facility] Initial: C Age: 43 year(s) Patient #: [id number] Race: Black Additional ID: [id number] Contact details [address]: [address] [place] [address] State: [place] City: [place] Zip code: [address] Past Medical History Allergies: No known allergies Admission Admission Data Admission Date: 01/22/2019 Admission Time: 12:28 Room #: D.2124 Lab Results Lab Result Date: 01/24/2019 Lab Result Time: 0:00 Biochemistry Name Units Result Min Max BUN mg/dl 31 --(----)-* 7 18 CK-MB ng/ml 31 --(----)-* 0 3.6 Creatinine mg/dl 1.4 --(----)*- 0.6 1.3 CBC Name Units Result Min Max Hemoglobin g/dl 14.3 --(*---)-- 13.5 17.5 Procedure Procedure Types Cath Procedure Diagnostic Procedure Right Heart Right Heart Cath Right Heart Pharmacology Study ANGELA Procedure Description Procedure Date Procedure Date: 01/24/2019 Procedure Start Time: 13:40 Procedure End Time: 13:59 Procedure Staff Name Function Ronnell Harris MD Performing Physician Gerson Weems RT Monitor Seb Peterson RN Nurse Lorne Verma RT Scrub Beau Rascon MD Additional personnel Kate Hameed Saw Handle Assembler Jackson Toure Saw Handle Assembler Procedure Data Cath Procedure Fluoroscopy Diagnostic fluoroscopy Total fluoroscopy Time: 3.5 time: 3.5 min min Diagnostic fluoroscopy Total fluoroscopy dose: dose: 45.05 mGy 45.05 mGy Entry Location Entry Primary Successful Side Size Upsize Upsize Entry Closure Evans ccessful Closure Location (Fr) 1 (Fr) 2 (Fr) Remarks Device Remarks Femoral Right 7 Fr Manual vein Short Compression Diagnostic catheters Device Type Used For End Catheter Placement SWAN 7Fr Thermodilution cather (131F7P) Procedure Complications No complications Procedure Medications Medication Administration Route Dosage 0.9% NaCl I.V. 100 ml/hr Oxygen 4 l/min Lidocaine 2% added to field 20 Hurricaine Erie P.O. 1 Sprays Refer to Anesthesia Notes for Sedation Medications Heparin Flush Bag added to field 2 bags (1000units/500ml NS) Adenosine IV 3mg/ml I.V. 50 mcg/kg/min Adenosine IV 3mg/ml I.V. 100 mcg/kg/min Adenosine IV 3mg/ml I.V. 200 mcg/kg/min Hemodynamics Rest HGB: 14.3 (g/dl) Heart Rate: 74 (bpm) Pressure Samples Time Site Value (mmHg) Purpose Heart Use Rate(bpm) 13:47 RA /89(68) Snapshot 77 13:48 PA 91/58(70) Snapshot 79 13:54 PA 89/59(71) Snapshot 84 13:55 RV 86/27,36 Snapshot 79 13:55 RA 59/61(47) Snapshot 81 Snapshots Pre Cath Intra NCS Post Cath Vital Signs Time Heart Resp SPO2 etCO2 NIBP (mmHg) Rhythm Pain Sedation Rate (ipm) (%) (mmHg) Status Level (bpm) 12:56:30 75 20 100 0 113/59(86) NSR 0 (11) 10(A) , No pain 13:01:45 79 14 100 29.2 132/66(79) NSR 0 (11) 10(A) , No pain 13:05:49 76 16 100 29.2 135/66(96) NSR 0 (11) 10(A) , No pain 13:09:51 81 25 100 20.9 135/64(98) NSR 0 (11) 10(A) , No pain 13:13:38 98 25 98 4.4 139/82(116) NSR 0 (11) 8(A) , No pain 13:18:01 94 23 97 0 154/78(124) NSR 0 (11) 8(A) , No pain 13:21:44 112 37 90 0 115/89(111) NSR 0 (11) 8(A) , No pain 13:26:47 84 50 100 0 138/76(109) NSR 0 (11) 8(A) , No pain 13:31:03 79 36 100 23.2 128/64(95) NSR 0 (11) 9(A) , No pain 13:35:06 78 30 100 20.2 135/79(109) NSR 0 (11) 9(A) , No pain 13:39:20 76 31 100 27.7 122/61(98) NSR 0 (11) 9(A) , No pain 13:43:24 78 24 100 26.2 138/73(103) NSR 0 (11) 9(A) , No pain 13:47:40 81 26 100 2.2 122/62(89) NSR 0 (11) 9(A) , No pain 13:51:46 83 30 100 20.9 119/69(94) NSR 0 (11) 9(A) , No pain 13:55:52 81 16 100 29.9 120/65(94) NSR 0 (11) 9(A) , No pain 14:00:00 82 33 100 20.2 117/65(89) NSR 0 (11) 9(A) , No pain Medications Time Medication Route Dose Verified Delivered Reason Notes Effectiveness by by 13:02:52 0.9% NaCl I.V. 100 ml/hr Seb Seb Per Nicholas Peterson physician RN RN 13:03:47 Oxygen 4 l/min Seb Seb for low 02 Nicholas Peterson satcelia RN RN 13:04:22 Lidocaine 2% added 20ml vial Seb Seb for local to Nicholas Peterson anesthetic field BERNY ARRIETA 13:08:51 Hurricaine Erie P.O. 1 Sprays Seb Reynaga for local Nicholas Kimberly anesthetic BERNY ACEVEDO 13:09:06 Refer to Seb Reynaga for Anesthesia Notes Nicholas Harris sedation for Sedation BERNY ACEVEDO Medications 13:44:11 Heparin Flush added 2 bags Seb Seb used for Bag to Nicholas Peterson procedure (1000units/500ml field BERNY RN NS) 13:46:43 Adenosine IV I.V. 50 Esb Seb Per 3mg/ml mcg/kg/min Nicholas velazquez RN RN 13:48:44 Adenosine IV I.V. 100 Seb Seb Per 3mg/ml mcg/kg/min Nicholas velazquez RN RN 13:50:50 Adenosine IV I.V. 200 Seb Seb Per 3mg/ml mcg/kg/min Nicholas velazquez RN drawbench operator Log Time Note 12:37:04 Diagnostic Cath status Urgent 12:37:07 Lorne Verma RT(R) sent for patient. Start room use. 12:37:09 Time tracking: Regular hours (M-F 7:00 - 5:00) 12:37:19 Plan of Care:Hemodynamics will remain stable., Cardiac rhythm will remain stable., Comfort level will be maintained., Respiratory function will remain adequate., Patient/ family verbilizes understanding of procedure., Procedure tolerated without complication., Recovers from procedure without complications.. 12:48:42 Lab Result : BUN 31 mg/dl 12:48:42 Lab Result : Hemoglobin 14.3 g/dl 12:48:42 Lab Result : CK-MB 31 ng/ml 12:48:42 Lab Result : Creatinine 1.4 mg/dl 12:49:14 Patient received from PCU to CCL 3 Alert and oriented. Tansferred to table in Supine position. 12:49:15 Warm blankets applied, and chelle hugger turned on for patient comfort. 12:49:15 Correct patient and procedure confirmed by team. 12:49:17 Signed procedure consent form obtained from patient. 12:49:18 ECG and BP/O2 sat monitors applied to patient. 12:54:31 Vital chart was started 12:54:42 Baseline sample Acquired. 12:54:47 Rhythm: sinus rhythm 12:54:48 Full Disclosure recording started 12:55:04 H&P Date Dictated: 01/21/2019 Within 30 days and on chart.. 12:55:05 Pre-procedure instructions explained to patient. 12:55:05 Pre-op teaching completed and patient verbalized understanding. 12:55:14 Family unavailable. 12:55:17 Patient NPO since Midnight. 12:55:35 Patient allergic to No known allergies 12:55:39 Is the patient allergic to Iodine/contrast media? No. 12:56:23 Is patient on blood thinner?No 12:56:25 Patient diabetic? No. 12:56:28 ----Pre-sedation anethsthesia assessment.---- 12:56:30 Previous problem with sedation/anesthesia? No ? 12:56:33 Snore? Yes 12:56:34 Sleep apnea? Yes 12:56:36 Deviated septum? No 12:56:38 Opens mouth fully? Yes 12:56:40 Sticks out tongue? Yes 12:56:50 Airway obstruction? No ? 12:57:02 Dentures? No ? 12:57:05 Pre procedure: right dorsailis pedis pulse 1+ Palpable, but thready & weak; easily obliterated 12:57:14 Patient pain scale 0/10 ?. 12:58:01 IV patent on arrival in left antecubital with 0.9% NaCl at [facility]. 12:58:04 Lab results completed and on chart. 13:02:52 0.9% NaCl 100 ml/hr I.V. was administered by Seb Peterson RN; Per physician; 13:03:47 Oxygen 4 l/min was administered by Seb Peterson RN; for low 02 sats; 13:03:51 Alarms reviewed by Alfredo Perry 13:03:56 Physician arrived 13:03:57 --------ALL STOP TIME OUT------ 13:04:19 Fire Safety Assessment: A--An alcohol-based skin anteseptic being used preoperatively., C--Open oxygen or nitrous oxide is being used., D--An ESU, laser, or fiber-optic light is being used. 13:04:22 Lidocaine 2% 20ml vial added to field was administered by Seb Peterson RN; for local anesthetic; 13:04:27 Physical assessment completed. ASA score P 2 - A patient with mild systemic disease as per Ronnell Harris MD. 13:04:32 Sedation plan: TIVA Medication:Propofol 13:05:52 Beau Rascon MD present and monitoring patient for TIVA. 13:06:48 ANGELA 13:06:[facility] [employer] present for ANGELA. 13:08:51 Hurricaine Erie 1 Sprays P.O. was administered by Ronnell Harris MD; for local anesthetic; 13:08:54 ANGELA started. 13:09:06 Refer to Anesthesia Notes for Sedation Medications was administered by Ronnell Harris MD; for sedation; 13:17:30 ANGELA completed. 13:28:07 pt being moved to table and prepped for RHC 13:28:18 ACIST Syringe (24321) opened to sterile field. 13:28:18 Bag Decanter (2002S) opened to sterile field. 13:28:20 Medline Cath Pack ([id number]) opened to sterile field. 13:28:23 ACIST Hand Control (47764) opened to sterile field. 13:28:24 ACIST Manifold (19758) opened to sterile field. 13:28:29 Tegaderm 4 x 4 (1626W) opened to sterile field. 13:28:52 SHEATH 7FR [place] (EMF984) opened to sterile field. 13:38:49 Procedure started. 13:40:13 Local anesthetic to right femoral vein with Lidocaine 2% by Ronnell Harris MD.INITIAL ACCESS ONLY 13:40:24 A 7 Fr Short sheath was inserted into the Right Femoral vein 13:40:35 Right Heart 13:40:57 [place]-Marie "C" tip catheter inserted 13:40:59 Right heart pressures obtained. 13:44:11 Heparin Flush Bag (1000units/500ml NS) 2 bags added to field was administered by Seb Peterson RN; used for procedure; 13:46:07 DIAGNOSTIC WIRE .025 150cm J (012159) opened to sterile field. 13:46:17 A SWAN 7Fr Thermodilution cather (131F7P) was advanced over the wire and used for . 13:46:43 Adenosine IV 3mg/ml 50 mcg/kg/min I.V. was administered by Seb Peterson RN; Per protocol; 13:48:44 Adenosine IV 3mg/ml 100 mcg/kg/min I.V. was administered by Seb Peterson RN; Per protocol; 13:49:21 Timer 1 started at 1:49 PM, stopped at 1:49 PM, duration 00:00:14 sec. 13:50:50 Adenosine IV 3mg/ml 200 mcg/kg/min I.V. was administered by Seb Peterson RN; Per protocol; 13:52:27 Procedure type changed to Cath procedure, Diagnostic procedure, Right Heart, Right Heart Cath, Right Heart Pharmacology Study, ANGELA 13:53:03 Timer 1 started at 1:50 PM, stopped at 1:53 PM, duration 00:02:17 sec. 13:56:11 Procedure ended.(Physican Out) 13:56:12 Sheath removed intact; hemostasis achieved with Manual Compression to the Right Femoral vein. 13:57:04 Fluoroscopy time 03.50 minutes. 13:57:34 Fluoroscopy dose: 45.05 mGy 13:57:34 Flurop Dose total: 45.05 13:57:36 Sharps counted by scrub and verified by R.N. 13:57:37 Insertion/operative site no bleeding no hematoma. 13:57:41 Post-op/insertion site Right Femoral artery dressed using a 4 x 4 and Tegaderm. 13:58:03 Post right femoral artery:stable 13:58:17 Post Procedure Pulses reassessed and unchanged 13:58:20 Post procedure: right dorsailis pedis pulse 1+ Palpable, but thready & weak; easily obliterated. 13:58:23 Post procedure rhythm: sinus rhythm 13:58:25 Post procedure instruction explained to patient.Patient verbalizes understanding. 13:58:26 Procedure and supply charges have been captured, reviewed, submitted and are correct. 13:59:13 Procedure Complication : No complications 13:59:16 Vital chart was stopped 13:59:16 See physician's report for complete and final results. 13:59:20 Report given to PCU. 13:59:30 Patient transfered to PCU with Bed. 13:59:31 Procedure ended. 13:59:31 Full Disclosure recording stopped 13:59:36 End room use (Document Last) Device Usage Item Name Manufacture Quantity Catalog Hospital Part Current Minima l Lot# / Number Charge Number Stock Stock Serial# Code ACIST Syringe Acist 1 78135 351600 714932 042562 20 (02911) [employer] Inc Bag Decanter Microtek 1 815205 85284 799636 5 () Medical Inc. Medline Cath Medline 1 [id number] 567010 88451 139302 5 Pack ([id number]) ACIST Hand Acist 1 14992 320562 170578 681401 5 Control Medical (47137) Systems Inc ACIST Manifold Acist 1 46296 004463 090124 633527 5 (52403) Medical Systems Inc Tegaderm 4 x 4 3M 1 1626W 557096 528736 714337 5 (1626W) SHEATH 7FR Terumo 1 [id number] 030224 208989 692594 5 [place] (YFM421) DIAGNOSTIC [place] 1 905040 215460 170014 352374 2 WIRE .025 150cm J (367131) SWAN 7Fr Jauregui 1 131F7P 933135 25512 958591 3 ThermodilutZonbo MediaciForever [employer] [facility] (131F7P) Signature Audit [place] Stage Time Signature Unsigned Intra-Procedure 01/24/2019 Gerson Weems RT(R) 2:07:47 PM Signatures Monitor : Gerson Weems RT Signature : Date : Time : [place] [id number] [place] [address]
[~2019-01-21 19:56] MED LIST changes: +COREG6.25 MG PO
--- NOTE | 2019-01-21 20:10 | NUR ---
PT IN WITH C/O CHEST PAIN THAT RADIATES TO THE LEFT SIDE OF HIS NECK, STARTED EARLIER THIS AFTERNOON. HAD A HEART CATH X 4 DAYS AGO, NO STENTS PLACED, NO BLOCKAGE FOUND PER PATIENT. PATIENT IS INCARSERATED, POLICE AT BEDSIDE, PATIENTS RIGHT HAND HANDCUFFED TO STRETCHER, FEET CUFFED TOGETHER.
[2019-01-21 21:36] LABS: APTT 28.6 SECONDS (22.8-39.4); BASOPHILS 0.3 % (0-2); EOSINOPHILS 0.7 % (0-7); HEMATOCRIT 45.6 % (42.0-54.0); HEMOGLOBIN 16.4 g/dL (13.5-17.5); IMMATURE GRANULOCYTES 0.2 % (0-5); INR 1.07 (0.85-1.17); LYMPHOCYTES 29.3 % (15-50); MCH 31.1 pg (26.0-34.0); MCV 86.4 fL (80.0-100.0); MEAN PLATELET VOLUME 10.7 fL (7.4-10.4); NEUTROPHILS 61.5 % (40-80); PLATELET COUNT 249 10x3/uL (130-400); PROTIME 13.4 SECONDS (11.6-15.0); RBC 5.28 10x6/uL (4.20-6.10); RDW 13.7 % (11.5-14.5); WBC 5.9 10x3/uL (4.8-10.8)
[2019-01-21 21:46] LABS: ALBUMIN 3.4 g/dL (3.4-5.0); ALKALINE PHOSPHATASE 51 U/L (46-116); ALT (SGPT) 7 U/L (10-68); BILIRUBIN - TOTAL 1.32 mg/dL (0.2-1.3); CALC OSMOLALITY 276 mosm/kg (275-300); CALCIUM 9.4 mg/dL (8.5-10.1); CARBON DIOXIDE 24.9 mmol/L (21.0-32.0); CHLORIDE - SERUM 101 mmol/L (98-107); CREATININE - SERUM 1.4 mg/dL (0.6-1.3); GLUCOSE 91 mg/dL (74-106); POTASSIUM - SERUM 4.3 mmol/L (3.5-5.1); PROTEIN - SERUM 7.6 g/dL (6.4-8.2); SODIUM 136 mmol/L (136-145); UREA NITROGEN 26 mg/dL (7-18); eGFR NON AFRICAN AMERICAN 59 mL/min (90-120)
[2019-01-21 22:00] VITALS: BP 129/80
--- NOTE | 2019-01-21 22:00 | NUR ---
PT RESTING QUIETLY WITH OFFICIER AT BEDSIDE, STATES HIS ISN'T ANY BETTER. LAB CALLED WITH A CRITICAL TROP, NOTIFIED.
[2019-01-21 22:07] LABS: CKMB 1.5 U/L (0.0-3.6); CREATINE KINASE 90 UL (21-232); LIPASE 215 U/L (73-393); MAGNESIUM - SERUM 2.1 mg/dL (1.8-2.4); PRO BNP 3677 pg/mL (0-125)
[2019-01-21 22:10] LABS: TROPONIN-I 0.112 ng/mL (0.000-0.060)
[2019-01-22] VITALS (8 sets, daily range): BP systolic 103–146; BP diastolic 47–77; Ht 165.1 cm; Wt 70.6 kg
--- NOTE | 2019-01-22 00:48 | NUR ---
ADMISSION ASSESSMENT COMPLETED. PT ALERT/ORIENTED. ACCOMPANIED BY GUARD FROM [facility]. IN WRIST AND ANKLE CUFFS. TELEMETRY SHOWS 80'S/SR WITH ELEVATED T AND P WAVE. PT WAS JUST INPATIENT FOR A HEART CATH THAT WAS CLEAR. PLAN OF CARE INITIATED.
--- NOTE | 2019-01-22 01:01 | NUR ---
PT ARRIVED TO FLOOR VIA STRECHER WITH [facility] STAFF. PT VITALS STABLE AT THIS TIME. PT RUNNING 76 SINUS RYTHEM WITH ELEVATED P-WAVE PER CYLINDER DEVALVER, SEP. PT DENIES ANY PAIN OR NEEDS AT THIS TIME. NO S/S OF DISTRESS. BED LOW CALL LIGHT WITHIN REACH. WILL CONTINUE TO MONITOR.
--- NOTE | 2019-01-22 07:00 | NUR ---
RECEIVED REPORT. ASSUMED CARE OF PATIENT. CALL LIGHT WITHIN REACH. NO DISTRESS. PATIENT WITH OFFICER AT BEDSIDE.
--- NOTE | 2019-01-22 07:45 | NUR ---
EKG COMPLETE AND GIVEN TO RECORD TESTER. HERE FOR AM ROUNDS.
--- NOTE | 2019-01-22 09:25 | NUR ---
KARIMET PROVIDED TO PATIENT. COFFEE PROVIDED TO OFFICER UPON REQUEST.
--- NOTE | 2019-01-22 11:45 | NUR ---
RESTING WELL. PATIENT COMPLAINS THAT HE HAS BEEN SLEEPING MOST OF THE DAY AND THAT HE HAS BEEN SLEEPY FOR THE LAST WEEK OR SO. RESP EVEN AND UNLABORED. NO DISTRESS. COOPERATIVE WITH TAKING MEDICATIONS. OFFICER REMAINS AT BEDSIDE. CALL LIGHT WITHIN REACH.
--- NOTE | 2019-01-22 15:17 | NUR ---
CALLED AND SPOKE TO MATTY IN ER ABOUT MISSING PAPERWORK. SHE HAS LOOKED THROUGH THE DEPARTMENT AND UNABLE TO LOCATE THE PERSONAL HEALTH RECORDS THAT THE PATIENT CAME TO THE HOSPITAL WITH. JULIO LARSON, STATED SHE WOULD ASK NATHAN TO LOOK AT [facility].
[2019-01-22 15:44] LABS: APPEARANCE CLEAR (CLEAR); BILIRUBIN NEGATIVE (NEGATIVE); COLOR YELLOW (YELLOW); GLUCOSE NEGATIVE (NEGATIVE); KETONE NEGATIVE (NEGATIVE); NITRITE NEGATIVE (NEGATIVE); PROTEIN NEGATIVE (NEGATIVE); SPECIFIC GRAVITY 1.015 (1.005-1.020)
[2019-01-22 15:47] LABS: UDS - AMPHET NEGATIVE QUAL (NEGATIVE); UDS - BARB NEGATIVE QUAL (NEGATIVE); UDS - BENZO POSITIVE QUAL (NEGATIVE); UDS - COCAINE NEGATIVE QUAL (NEGATIVE); UDS - OPIATE POSITIVE QUAL (NEGATIVE); UDS - PCP NEGATIVE QUAL (NEGATIVE); UDS - THC POSITIVE QUAL (NEGATIVE)
--- NOTE | 2019-01-22 16:30 | NUR ---
PATIENTS PAPERWORK WAS FOUND IN THE ER, HOWEVER, ALL THE PAPERWORK THAT WAS FOUND WAS THE PATIENTS DISCHARGE INSTRUCTIONS FROM THE FACILITY ON 01/19/19 THAT HE HAS BEEN CARRYING WITH HIM. NONE OF THE PAPERWORK WAS FROM [facility]! THE PAPER WORK TOLD HIM TO CONTACT [facility] FOR A FOLLOW UP APPT. PATIENT PROVIDED PAPERWORK THAT HE BROUGHT TO THIS FACILITY.
--- NOTE | 2019-01-22 19:36 | NUR ---
RECEIVED REPORT, WILL ASSUME CARE OF PT, ASKING FOR A LEMON TANACROSS DRINK, PROVIDED DRINK, GUARD AT DOOR, BED IS LOW, SRX2, CALL LIGHT IN REACH, WILL CONTINUE PLAN OF CARE
--- NOTE | 2019-01-22 21:35 | NUR ---
PM MEDS PASSED, GAVE FRESH ICE WATER, WILL CONTINUE PLAN OF CARE
--- NOTE | 2019-01-23 02:19 | NUR ---
I have reviewed this patient and I concur with the Shift Assessment completed by the Licensed Practical Nurse today this shift.
[2019-01-23 04:30] VITALS: BP 110/52
[2019-01-23 07:56] VITALS: BP 106/48
--- NOTE | 2019-01-23 08:16 | NUR ---
PT SITTING UP IN BED ALERT AND ORIENTED RR EVEN AND UNLABORED. DR. JESSICA IN SPEAKING WITH PT. SEE NOTES. PT TO BE NPO AT MIDNIGHT. PT DENIES ANY NEEDS AT THIS TIME. BED LOW CALL LIGHT WITHIN REACH. WILL CONTINUE TO MONITOR.
[2019-01-23 09:10] LABS: BASOPHILS 0.3 % (0-2); EOSINOPHILS 1.2 % (0-7); HEMATOCRIT 43.5 % (42.0-54.0); HEMOGLOBIN 15.3 g/dL (13.5-17.5); LYMPHOCYTES 33.4 % (15-50); MCHC 35.2 g/dL (31.0-37.0); MCV 88.2 fL (80.0-100.0); MEAN PLATELET VOLUME 10.7 fL (7.4-10.4); MONOCYTES 8.1 % (2-11); PLATELET COUNT 226 10x3/uL (130-400); RBC 4.93 10x6/uL (4.20-6.10); RDW 13.6 % (11.5-14.5); WBC 5.8 10x3/uL (4.8-10.8)
[2019-01-23 09:25] LABS: ANION GAP 10.6 mmol/L (8-16); CALCIUM 9.2 mg/dL (8.5-10.1); CARBON DIOXIDE 29.9 mmol/L (21.0-32.0); CREATININE - SERUM 1.7 mg/dL (0.6-1.3); POTASSIUM - SERUM 4.5 mmol/L (3.5-5.1)
[2019-01-23 11:22] VITALS: BP 110/46
--- NOTE | 2019-01-23 15:50 | NUR ---
PT SITTING UP ALERT AND ORIENTED X4. RR EVEN AND UNLABORED. PT IN DISTRESS ABOUT GETTING PAPERWORK TO [facility] [employer] THAT STATES HE IS IN HOSPITAL. SPOKE WITH AT BEDSIDE AND HE REASSURED THAT [employer] WILL BE NOTIFIED. BED LOW CALL LIGHT WITHIN REACH. WILL CONTINUE TO MONITOR.
--- NOTE | 2019-01-23 16:46 | NUR ---
I have reviewed this patient and I concur with the Shift Assessment completed by the Licensed Practical Nurse today this shift.
[2019-01-23 16:49] VITALS: BP 107/40
--- NOTE | 2019-01-23 17:59 | NUR ---
PT REFUSED SCD'S. WILL CONTINUE TO MONITOR.
--- NOTE | 2019-01-23 19:20 | NUR ---
RECEIVED REPORT, WILL ASSUME CARE OF PT, HR-64-SR, DENIES ANY NEEDS AT THIS TIME, BED IS LOW, SRX2, CALL LIGHT IN REACH, GUARD AT BEDSIDE, WILL CONTINUE PLAN OF CARE
[2019-01-23 20:07] VITALS: BP 102/45
[2019-01-23 23:49] VITALS: BP 102/36
[2019-01-24 04:23] VITALS: BP 99/42
[2019-01-24 05:17] LABS: BASOPHILS 0.5 % (0-2); EOSINOPHILS 1.8 % (0-7); HEMATOCRIT 41.2 % (42.0-54.0); HEMOGLOBIN 14.3 g/dL (13.5-17.5); IMMATURE GRANULOCYTES 0.2 % (0-5); LYMPHOCYTES 37.6 % (15-50); MCH 30.5 pg (26.0-34.0); MCHC 34.7 g/dL (31.0-37.0); MCV 87.8 fL (80.0-100.0); MONOCYTES 12.8 % (2-11); NEUTROPHILS 47.1 % (40-80); PLATELET COUNT 219 10x3/uL (130-400); RBC 4.69 10x6/uL (4.20-6.10); RDW 13.7 % (11.5-14.5); WBC 6.2 10x3/uL (4.8-10.8)
[2019-01-24 05:23] LABS: ANION GAP 11.4 mmol/L (8-16); CALCIUM 8.7 mg/dL (8.5-10.1); CARBON DIOXIDE 27.7 mmol/L (21.0-32.0); CREATININE - SERUM 1.4 mg/dL (0.6-1.3); POTASSIUM - SERUM 4.1 mmol/L (3.5-5.1)
[2019-01-24 08:08] VITALS: BP 118/51
--- NOTE | 2019-01-24 09:27 | NUR ---
AM MEDS GIVEN AT THIS TIME WITH A SIP OF WATER, PT REFUSED NICOTINE PATCH. PT A/O X4, RESP EVEN AND NONLABORED ON RA. LT AC IV PATENT AND SL. MONITOR SHOWING SR 68. PT DENIES ANY NEEDS AT THIS TIME. FLOW WORKER AT THIS TIME. CALL LIGHT IN REACH, NAD NOTED,W ILL CONTINUE TO MONITOR.
--- NOTE | 2019-01-24 10:30 | NUR ---
WENT TO CHECK TO SEE IF PT NEEDED ANYTHING. PT RESTING COMFORTABLY, GUARD ALSO SLEEPING. PT AROUSES EASILY TO VOICE, DENIES ANY NEEDS AT THIS TIME. CALL LIGHT IN REACH, NAD NOTED, WILL CONTINUE TO MONITOR.
[2019-01-24 11:57] VITALS: BP 95/48
--- NOTE | 2019-01-24 12:57 | NUR ---
PT TO AIR POLLUTION CONTROL ENGINEER AT THIS TIME.
--- NOTE | 2019-01-24 14:25 | NUR ---
RECEIVED PT BACK TO ROOM 2123, PT DROWSY BUT EASILY AROUSES TO VOICE. VITAL SIGNS STABLE, PLACED PT ON Q15MIN VITALS. DRESSING TO RT GROIN CDI, NO SIGNS OF BLEEDING OR HEMATOMA NOTED. PT DENIES ANY NEEDS AT THIS TIME. GUARD AT BEDSIDE, CALL LIGHT IN REACH, NAD NOTED, WILL CONTINUE TO MONITOR.
[2019-01-24 15:44] VITALS: BP 102/43
--- NOTE | 2019-01-24 19:14 | NUR ---
RECIEVED UP IN BED WITH EYES CLOSED. HARD TO AROUSE AND VERY LETHARGIC. ABLE TO ANSWER QUESTION AND STATES HE ATE HIS SUPPER. DSG TO RIGHT GROIN CDI. HAS STRONG PEDAL PULSES TO RIGHT FOOT. IV TO LEFT AC SL.. DSG CDI. DENIES ANY NEEDS AT THIS TIME.
[2019-01-24 21:36] VITALS: BP 133/49
[2019-01-25 01:56] VITALS: BP 120/54
[2019-01-25 06:09] LABS: BASOPHILS 0.3 % (0-2); EOSINOPHILS 1.5 % (0-7); HEMATOCRIT 42.4 % (42.0-54.0); LYMPHOCYTES 33.9 % (15-50); MCH 30.9 pg (26.0-34.0); MCHC 35.4 g/dL (31.0-37.0); MCV 87.4 fL (80.0-100.0); MEAN PLATELET VOLUME 11.2 fL (7.4-10.4); NEUTROPHILS 51.3 % (40-80); PLATELET COUNT 224 10x3/uL (130-400); RBC 4.85 10x6/uL (4.20-6.10); RDW 13.8 % (11.5-14.5)
[2019-01-25 06:19] LABS: ANION GAP 10.5 mmol/L (8-16); CALCIUM 9.1 mg/dL (8.5-10.1); CREATININE - SERUM 1.6 mg/dL (0.6-1.3); POTASSIUM - SERUM 4.5 mmol/L (3.5-5.1)
[2019-01-25 06:23] VITALS: BP 104/50
--- NOTE | 2019-01-25 07:40 | NUR ---
ASSESSMENT COMPLETED. ALERT AND ORIENTED. DENIES ANY NEEDS. TELEMERTY SHOWS SR 73 DRSG TO RIGHT GROIN DRY AND INTACT. UP AB DOMINGUEZ. LEFT AC SL. GUARD AT BED SIDE. WILL MONITOR
[2019-01-25 07:44] VITALS: BP 157/73
--- NOTE | 2019-01-25 09:05 | MORECARE ---
CASE MANAGEMENT DISCHARGE SUMMARY PATIENT: LB QUIJANO UNIT: [id number] ADM DATE: 01/22/19 AGE: 43 : 75 SEX: M ROOM/BED: D.0434 AUTHOR: NELDA JOSEPH PHYSICIAN: REFERRING PHYSICIAN: BRIGETTE TOLLIVER MD DATE OF SERVICE: 01/25/19 Discharge Plan Patient Name: LB QUIJANO [facility] [facility] 1975 Planned Disposition: Other Type of Facility Anticipated Discharge Date: Discharge Date: Expected LOS: Initial Reviewer: [email or web address] Initial Review Date: 01/25/2019 Generated: 01/25/19 10:04 am DCPIA - Discharge Planning Initial Assessment Updated by [email or web address]: Arslan Hoover on 01/25/19 9:04 am * Is the patient Alert and Oriented? Yes * How many steps to enter\\exit or inside your home? NONE * PCP NONE - REPORTS HAD APPOINTMENT WITH [facility] BUT DID NOT MAKE IT DUE TO BEING "LOCKED UP" * Pharmacy [facility] * Preadmission Environment Other * Other Environment [facility] * Facility Name [facility] * ADLs Independent * Equipment None * Other Equipment NONE * List name and contact numbers for known caregivers / representatives who currently or will assist patient after discharge: NANCY QUIJANO, MOTHER, * Verbal permission to speak to the caregivers and representatives has been obtained from the patient. N/A * Community resources currently utilized None * Please name any agencies selected above. NONE * Additional services required to return to the preadmission environment? No * Can the patient safely return to the preadmission environment? Yes * Has this patient been hospitalized within the prior 30 days at any hospital? No Patient Name: LB QUIJANO Page 19898 at 0905 All edits/amendments must be made on the electronic document DICTATION DATE: 01/25/19903 DIRECTOR CARDIOVASCULAR: ALE 01/25/19903 RPT#: [id number] DC DATE: STATUS: ADM IN [facility] [address] [place] [address] END OF REPORT
--- NOTE | 2019-01-25 09:11 | MORECARE ---
CASE MANAGEMENT DISCHARGE SUMMARY PATIENT: LB QUIJANO UNIT: [id number] ADM DATE: 01/22/19 AGE: 43 : 75 SEX: M ROOM/BED: D.2464 AUTHOR: JAKE,DOC PHYSICIAN: REFERRING PHYSICIAN: BRIGETTE TOLLIVER MD DATE OF SERVICE: 01/25/19 Discharge Plan Patient Name: LB QUIJANO Facility: [facility]:[place] : 1975 Planned Disposition: Other Type of Facility Anticipated Discharge Date: Discharge Date: Expected LOS: Initial Reviewer: [email or web address] Initial Review Date: 01/25/2019 Generated: 01/25/19 10:11 am Comments DCP- Discharge Planning Updated by [email or web address]: Arslan Hoover on 01/25/19 8:[address] Patient Name: LB QUIJANO Admission Status: ER Accout number: [id number] Admission Date: 01-22-2019 : 1975 Admission Diagnosis: Attending: BRIGETTE TOLLIVER Current LOS: 3 Anticipated DC Date: Planned Disposition: Other Type of Facility Primary Insurance: MEDICAID [place] PLANNED EXTERNAL PROVIDER: [facility] Discharge Planning Comments: CM MET WITH PT AND [facility] IN ROOM TO DISCUSS DISCHARGE PLANNING AND NEEDS. PT REPORTS CURRENTLY BEING IN THE [facility] FOR 30 DAYS. PT HAS NO MEDICAL EQUIPMENT AND NO OUTSIDE SERVICES ASSISTING IN THE HOME. CM DISCUSSED AVAILABILITY OF HOME HEALTH, REHAB SERVICES AND MEDICAL EQUIPMENT. PT DENIES DISCHARGE NEEDS, REPORTS HE IS RETURNING TO LONG-TERM TO COMPLETE HIS SENTENCE AT HOSPITAL DISCHARGE. PT TO RETURN TO [facility] AT DISCHARGE, IN [facility]UST[facility] OF [facility]. Driller Machine: Arslan Hoover DCPIA - Discharge Planning Initial Assessment Updated by [email or web address]: Arslan Hoover on 01/25/19 9:04 am * Is the patient Alert and Oriented? Yes * How many steps to enter\\exit or inside your home? NONE * PCP NONE - REPORTS HAD APPOINTMENT WITH [facility] BUT DID NOT MAKE IT DUE TO BEING "LOCKED UP" * Pharmacy [facility] * Preadmission Environment Other * Other Environment LONG-TERM * Facility Name [facility] * ADLs Independent * Equipment None * Other Equipment NONE * List name and contact numbers for known caregivers / representatives who currently or will assist patient after discharge: NANCY QUIJANO, MOTHER, * Verbal permission to speak to the caregivers and representatives has been obtained from the patient. N/A * Community resources currently utilized None * Please name any agencies selected above. NONE * Additional services required to return to the preadmission environment? No * Can the patient safely return to the preadmission environment? Yes * Has this patient been hospitalized within the prior 30 days at any hospital? No Last DP export: 01/25/19 8:05 a Patient Name: LB QUIJANO Page 59836 at 0911 All edits/amendments must be made on the electronic document DICTATION DATE: 01/25/19910 TANK COOPER: ALE 01/25/19910 RPT#: [id number] DC DATE: STATUS: ADM IN [facility] [address] [place] [address] END OF REPORT
[2019-01-25 11:49] VITALS: BP 99/47
--- NOTE | 2019-01-25 12:26 | OP ---
PATIENT NAME: LB QUIJANO MEDICAL RECORD: [id number] :[birth year] LOCATION:D.Kevin D.2124 ADMISSION DATE:01/22/19 SURGEON: SÁNCHEZ PIZARRO MD DATE OF OPERATION: 01/24/2019 PROCEDURE: Right heart catheterization via the right femoral vein approach. DESCRIPTION OF PROCEDURE: After right femoral vein was cannulated via modified Seldinger technique, [place]-Marie catheter was placed into the RA, RV, PA, and finally wedge respectively. Pressures were measured and the patient was given adenosine challenge. FINDINGS: Wedge pressure was elevated at 30 mmHg. PA pressures; PA pressures were 88-93 consistently with diastolics in the 60 range. IV adenosine was infused in incremental fashion. At the end of 2 minutes, with each increasing increment, pulmonary pressures were retaken. This showed no response to adenosine, consistent with fixed pulmonary hypertension. RV pressure 75/20. RA pressure 18-22. IMPRESSION: Fixed pulmonary hypertension with no response to adenosine. TRANSINT:[id number] Voice Confirmation ID: [id number] DOCUMENT ID: [id number] SÁNCHEZ PIZARRO MD at 1226 CC: [id number] DICTATION DATE: 01/24/19 1401 STATISTICAL DEVELOPER: 01/24/19 1524 ADM IN [facility] [address] [place] [address]
--- NOTE | 2019-01-25 12:26 | TEE ---
PATIENT:LB QUIJANO MEDICAL RECORD: [id number] LOCATION:D. D.212 AGE OF PATIENT: 43 ADMISSION DATE: 01/22/19 SEX: M REFERRING PHYSICIAN: INTERPRETING PHYSICIAN: SÁNCHEZ PIZARRO MD TRANSESOPHAGEAL ECHOCARDIOGRAM Date: 01/24/19 ANGELA CHARGE Y INDICATIONS: ASSESS AORTIC VALVE/AI/MITRAL VALLVE PREMEDICATIONS: PATIENT'S RESPONSE PROCEDURE DOPPLER MEASUREMENTS: LVIT LA PA RA LVOT RVOT Asc. Ao AV Gradient Peak AV Mean AV Area MV Gradient Peak MV Mean MV Area INTERPRETATION: Doppler: 2-D: COLOR FLOW DOPPLER NORMAL SALINE STUDY: MISCELLANOUS: DIAGNOSIS: PLAN: Collar Baster:3 Dr. Bonilla Learning And Development Specialist: Makenzie SANCHES COMMENTS: DATE OF SERVICE: 01/24/2019 TRANSESOPHAGEAL NOTE After general sedation via TIVA via anesthesia, transesophageal Omniplane probe was placed into the distal esophagus and proximal stomach without difficulty. FINDINGS: No LVH. LV internal dimensions appear at upper limits of normal. LV appears to be mildly globally hypo with LV function at lower limits of normal to TRANSESOPHAGEAL ECHOCARDIOGRAM REPORT [id number] SEDA QUIJANO mildly reduced at 45% to 50%. 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 Left atrium appears upper limits of normal to mildly dilated. Mitral valve shows mild redundancy with ufjk-to-canknblb MR. Right-sided chambers are grossly normal. RV internal dimensions appear normal. Right atrium appears dilated. Moderate TR with color-flow imaging. At the end of procedure, transesophageal Omniplane probe was turned posteriorly and this showed no atherosclerotic debris in the descending aorta. TRANSINT:[id number] Voice Confirmation ID: [id number] DOCUMENT ID: [id number] at 1226 CC: [id number] DICTATION DATE: 01/24/19 1321 BENEFITS MANAGER: 01/24/19 1402 ADM IN [address] [place] [address]
--- NOTE | 2019-01-25 13:22 | NUR ---
I have reviewed this patient and I concur with the Shift Assessment completed by the Licensed Practical Nurse today this shift.
[2019-01-25 14:57] VITALS: BP 96/42
--- NOTE | 2019-01-25 16:00 | MORECARE ---
CASE MANAGEMENT DISCHARGE SUMMARY PATIENT: LB QUIJANO UNIT: [id number] ADM DATE: 01/22/19 AGE: 43 : 75 SEX: M ROOM/BED: D.2124 AUTHOR: JAKE,DOC PHYSICIAN: REFERRING PHYSICIAN: BRIGETTE TOLLIVER MD DATE OF SERVICE: 01/25/19 Discharge Plan Patient Name: LB QUIJANO Facility: [facility]:[place] : 1975 Planned Disposition: Acute Care Hospital Anticipated Discharge Date: 01/26/19 Discharge Date: Expected LOS: 4 Initial Reviewer: [id number] Initial Review Date: 01/25/2019 Generated: 01/25/19 5:00 pm Comments DCP- Discharge Planning Updated by [email or web address]: Arslan Hoover on 01/25/19 8:[address] Patient Name: LB QUIJANO Admission Status: ER Accout number: [id number] Admission Date: 01-22-2019 : 1975 Admission Diagnosis: Attending: BRIGETTE TOLLIVER Current LOS: 3 Anticipated DC Date: Planned Disposition: Other Type of Facility Primary Insurance: MEDICAID [place] PLANNED EXTERNAL PROVIDER: [facility] Discharge Planning Comments: CM MET WITH PT AND [facility] IN ROOM TO DISCUSS DISCHARGE PLANNING AND NEEDS. PT REPORTS CURRENTLY BEING IN THE [facility] FOR 30 DAYS. PT HAS NO MEDICAL EQUIPMENT AND NO OUTSIDE SERVICES ASSISTING IN THE HOME. CM DISCUSSED AVAILABILITY OF HOME HEALTH, REHAB SERVICES AND MEDICAL EQUIPMENT. PT DENIES DISCHARGE NEEDS, REPORTS HE IS [facility]ING [facility] TO COMPLETE HIS SENTENCE AT HOSPITAL DISCHARGE. PT TO RETURN TO [facility] AT DISCHARGE, IN CUSTODY OF [facility]S DEPARTMENT. Leadership Development Manager: Arslan Hoover DCPIA - Discharge Planning Initial Assessment Updated by [id number]: Arslan Hoover on 01/25/19 9:04 am * Is the patient Alert and Oriented? Yes * How many steps to enter\\exit or inside your home? NONE * PCP NONE - REPORTS HAD APPOINTMENT WITH [facility] BUT DID NOT MAKE IT DUE TO BEING "LOCKED UP" * Pharmacy [facility] * Preadmission Environment Other * Other Environment [facility] * Facility Name [facility] * ADLs Independent * Equipment None * Other Equipment NONE * List name and contact numbers for known caregivers / representatives who currently or will assist patient after discharge: NANCY QUIJANO, MOTHER, * Verbal permission to speak to the caregivers and representatives has been obtained from the patient. N/A * Community resources currently utilized None * Please name any agencies selected above. NONE * Additional services required to return to the preadmission environment? No * Can the patient safely return to the preadmission environment? Yes * Has this patient been hospitalized within the prior 30 days at any hospital? No Last DP export: 01/25/19 8:11 a Patient Name: LB QUIJANO Page 45858 at 1600 All edits/amendments must be made on the electronic document DICTATION DATE: 01/25/19 1600 TRANSFER MAN: ALE 01/25/19 1600 RPT#: [id number] DC DATE: STATUS: ADM IN [facility] [address] [place] [address] END OF REPORT
--- NOTE | 2019-01-25 16:11 | MORECARE ---
CASE MANAGEMENT DISCHARGE SUMMARY PATIENT: LB QUIJANO UNIT: [id number] ADM DATE: 01/22/19 AGE: 43 : 75 SEX: M ROOM/BED: D.8244 AUTHOR: NELDA JOSEPH PHYSICIAN: REFERRING PHYSICIAN: BRIGETTE TOLLIVER MD DATE OF SERVICE: 01/25/19 Discharge Plan Patient Name: LB QUIJANO Facility: [facility]:[place] : 1975 Planned Disposition: Acute Care Hospital Anticipated Discharge Date: 01/26/19 Discharge Date: Expected LOS: 4 Initial Reviewer: [id number] Initial Review Date: 01/25/2019 Generated: 01/25/19 5:11 pm Comments DCP- Discharge Planning Updated by [email or web address]: Arslan Hoover on 01/25/19 3:[address] Patient Name: LB QUIJANO Encounter No: [id number] : 1975 Primary Insurance: MEDICAID [place] Anticipated DC Date: 01-26-2019 Planned Disposition: Acute Care Hospital External Planned Provider: [facility] DCP follow-up note: CM SPOKE TO DR. JESSICA WHO INFORMED THAT PT NEEDS TRANSFER TO [facility] REGARDING SPECIALTY CARE AND SUPPORT PT IS ON HEART TRANSPLANT LIST THERE; DR. JESSICA HAS DISCUSSED TRANSFER OF PT WITH DR. LEON OF [facility]. DR. LEON WILL ACCEPT PT AND THEY ARE WAITING ON BED AVAILABILTY. DR. LEON WILL NOTIFY DR. JESSICA WHEN BED IS AVAILABLE AT [facility] FOR TRANSFER. CM NOTIFIED HOUSE KENA HUYNH WHO ADVISED TILESETTER OIL WELL SHOOTER, RACQUEL, WILL APPROVE. CM WAITING ON DR. LEON TO NOTIFY DR. JESSICA OF BED AVAILABILITY FOR PT TO TRANSFER TO [facility] IN [place]. ZULLY Jaramillo DCP- Discharge Planning Updated by [id number]: Arslan Hoover on 01/25/19 8:[address] Patient Name: LB QUIJANO Admission Status: ER Accout number: [id number] Admission Date: 01-22-2019 : 1975 Admission Diagnosis: Attending: BRIGETTE TOLLIVER Current LOS: 3 Anticipated DC Date: Planned Disposition: Other Type of Facility Primary Insurance: MEDICAID [place] PLANNED EXTERNAL PROVIDER: [facility] Discharge Planning Comments: CM MET WITH PT AND [facility] IN ROOM TO DISCUSS DISCHARGE PLANNING AND NEEDS. PT REPORTS CURRENTLY BEING IN THE [facility] FOR 30 DAYS. PT HAS NO MEDICAL EQUIPMENT AND NO OUTSIDE SERVICES ASSISTING IN THE HOME. CM DISCUSSED AVAILABILITY OF HOME HEALTH, REHAB SERVICES AND MEDICAL EQUIPMENT. PT DENIES DISCHARGE NEEDS, REPORTS HE IS RETURNING TO [facility] TO COMPLETE HIS SENTENCE AT HOSPITAL DISCHARGE. PT TO RETURN TO [facility] AT DISCHARGE, IN CUSTODY OF [facility]S DEPARTMENT. Forensic Nurse: Arslan Hoover DCPIA - Discharge Planning Initial Assessment Updated by [email or web address]: Arslan Hoover on 01/25/19 9:04 am * Is the patient Alert and Oriented? Yes * How many steps to enter\\exit or inside your home? NONE * PCP NONE - REPORTS HAD APPOINTMENT WITH [facility] BUT DID NOT MAKE IT DUE TO BEING "LOCKED UP" * Pharm[facility] * Preadmission Environment Other * Other Environment [facility] * Facility Name [facility] * ADLs Independent * Equipment None * Other Equipment NONE * List name and contact numbers for known caregivers / representatives who currently or will assist patient after discharge: NANCY QUIJANO, MOTHER, * Verbal permission to speak to the caregivers and representatives has been obtained from the patient. N/A * Community resources currently utilized None * Please name any agencies selected above. NONE * Additional services required to return to the preadmission environment? No * Can the patient safely return to the preadmission environment? Yes * Has this patient been hospitalized within the prior 30 days at any hospital? No Last DP export: 01/25/19 3:00 p Patient Name: LB QUIJANO Page 96938 at 1611 All edits/amendments must be made on the electronic document DICTATION DATE: 01/25/191609 WELDING MACHINE OPERATOR ELECTROSLAG: ALE 01/25/191609 RPT#: [id number] DC DATE: STATUS: ADM IN [facility] [address] [place] [address] END OF REPORT
--- NOTE | 2019-01-25 18:40 | NUR ---
LYING QUIETLY NO NEEDS VOICED. SIDE RAIL UP. WILL MONITOR
[2019-01-25 20:00] VITALS: BP 107/56
[2019-01-26] VITALS (7 sets, daily range): BP systolic 96–141; BP diastolic 34–100
--- NOTE | 2019-01-26 00:35 | NUR ---
RESTING WITH EYES CLOSED, NO S/S DISTRESS NOTED.
--- NOTE | 2019-01-26 03:45 | NUR ---
I have reviewed this patient and I concur with the Shift Assessment completed by the Licensed Practical Nurse today this shift.
--- NOTE | 2019-01-26 04:21 | NUR ---
MOTH EXTERMINATOR AT BED SIDE TO OBTAIN VITALS.
[2019-01-26 06:26] LABS: BASOPHILS 0.5 % (0-2); EOSINOPHILS 2.4 % (0-7); HEMATOCRIT 40.4 % (42.0-54.0); HEMOGLOBIN 14.2 g/dL (13.5-17.5); IMMATURE GRANULOCYTES 0.2 % (0-5); LYMPHOCYTES 38.5 % (15-50); MCH 30.7 pg (26.0-34.0); MCHC 35.1 g/dL (31.0-37.0); MCV 87.4 fL (80.0-100.0); MEAN PLATELET VOLUME 11.5 fL (7.4-10.4); MONOCYTES 14.1 % (2-11); NEUTROPHILS 44.3 % (40-80); PLATELET COUNT 224 10x3/uL (130-400); RBC 4.62 10x6/uL (4.20-6.10); RDW 13.6 % (11.5-14.5); WBC 5.8 10x3/uL (4.8-10.8)
[2019-01-26 06:29] LABS: ANION GAP 9.6 mmol/L (8-16); CALCIUM 8.7 mg/dL (8.5-10.1); CARBON DIOXIDE 27.1 mmol/L (21.0-32.0); CREATININE - SERUM 1.4 mg/dL (0.6-1.3)
[2019-01-26 06:30] LABS: POTASSIUM - SERUM 3.7 mmol/L (3.5-5.1)
--- NOTE | 2019-01-26 07:30 | NUR ---
REPORT RECEIVED. WILL CONTINUE WITH POC. PT CURRENTLY LYING SEMI FOWLERS. CALL LIGHT W/I REACH. PT IS AAO AND UP AD DOMINGUEZ. GUARD AT BEDSIDE. RR EVEN AND UNLABORED ON RA. L.AC PIV IS SALINE LOCKED. PT DENIES ANY NEEDS AT THIS TIME. NO S/S OF DISTRESS NOTED. WILL CTM.
--- NOTE | 2019-01-26 13:29 | NUR ---
I have reviewed this patient and I concur with the Shift Assessment completed by the Licensed Practical Nurse today this shift.
--- NOTE | 2019-01-26 19:45 | NUR ---
ASSESSMENT COMPLETE, PT A&O. RESPERATIONS EVEN ON RA. IV TO LEFT AC SL, SITE CLEAN AND DRY. PT CURRENTLY DENIES PAIN OR NEEDS. BED LOW, CL IN REACH.
--- NOTE | 2019-01-26 20:49 | NUR ---
HS MEDS GIVEN WITH FRESH ICE WATER. FAMILY AT BED SIDE, PT DENIES PAIN OR NEEDS.
--- NOTE | 2019-01-27 02:09 | NUR ---
I have reviewed this patient and I concur with the Shift Assessment completed by the Licensed Practical Nurse today this shift.
--- NOTE | 2019-01-27 03:09 | NUR ---
RESTING WITH EYES CLOSED, RESPERATIONS EVEN, NO S/S DISTRESS NOTED.
[2019-01-27 05:20] VITALS: BP 114/51
[2019-01-27 05:55] LABS: BASOPHILS 0.3 % (0-2); EOSINOPHILS 1.4 % (0-7); HEMATOCRIT 41.5 % (42.0-54.0); HEMOGLOBIN 14.7 g/dL (13.5-17.5); IMMATURE GRANULOCYTES 0.2 % (0-5); LYMPHOCYTES 34.8 % (15-50); MCH 30.7 pg (26.0-34.0); MCHC 35.4 g/dL (31.0-37.0); MCV 86.6 fL (80.0-100.0); MONOCYTES 13.2 % (2-11); NEUTROPHILS 50.1 % (40-80); PLATELET COUNT 228 10x3/uL (130-400); RBC 4.79 10x6/uL (4.20-6.10); RDW 13.6 % (11.5-14.5); WBC 6.5 10x3/uL (4.8-10.8)
[2019-01-27 05:56] LABS: ANION GAP 12.5 mmol/L (8-16); CALCIUM 9.4 mg/dL (8.5-10.1); CREATININE - SERUM 1.5 mg/dL (0.6-1.3); POTASSIUM - SERUM 4.5 mmol/L (3.5-5.1)
--- NOTE | 2019-01-27 07:10 | NUR ---
REPORT RECEIVED FROM FISHING WORKER AND PATIENT CARE ASSUMED. NIGHT NURSE REPORTED THAT PATIENT BONDED OUT ON [facility] AND NO LONGER ON [facility] HOLD. PATIENT IS AWAKE, ALERT AND ORIENTED X 4. PATIENT IS SITTING UP IN BEDSIDE CHAIR AND VSS. PATIENT DENIES ANY NEEDS OR PAIN. WILL CONTINUE TO MONITOR. CALL LIGHT IN REACH.
[2019-01-27 08:00] VITALS: BP 111/69
--- NOTE | 2019-01-27 09:00 | NUR ---
PATIENT ASSESMENT COMPLETED. WILL CONTINUE TO MONITOR.
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
--- NOTE | 2019-01-28 08:41 | MORECARE ---
CASE MANAGEMENT DISCHARGE SUMMARY PATIENT: LB QUIJANO UNIT: [id number] ADM DATE: 01/22/19 AGE: 43 : 75 SEX: M ROOM/BED: D.9564 AUTHOR: NELDA JOSEPH PHYSICIAN: REFERRING PHYSICIAN: BRIGETTE TOLLIVER MD DATE OF SERVICE: 01/28/19 Discharge Plan Patient Name: LB QUIJANO Facility: [facility]:[place] : 1975 Planned Disposition: Acute Care Hospital Anticipated Discharge Date: 01/27/19 Discharge Date: 01/27/2019 Expected LOS: 5 Initial Reviewer: [email or web address] Initial Review Date: 01/25/2019 Generated: 01/28/19 9:41 am Comments DCP- Discharge Planning Updated by [id number]: Arslan Hoover on 01/25/19 3:[address] Patient Name: LB QUIJANO Encounter No: [id number] : 1975 Primary Insurance: MEDICAID [place] Anticipated DC Date: 01-26-2019 Planned Disposition: Acute Care Hospital External Planned Provider: [facility] DCP follow-up note: CM SPOKE TO DR. JESSICA WHO INFORMED THAT PT NEEDS TRANSFER TO [facility] REGARDING SPECIALTY CARE AND SUPPORT PT IS ON HEART TRANSPLANT LIST THERE; DR. JESSICA HAS DISCUSSED TRANSFER OF PT WITH DR. LEON OF [facility]. DR. LEON WILL ACCEPT PT AND THEY ARE WAITING ON BED AVAILABILTY. DR. LEON WILL NOTIFY DR. JESSICA WHEN BED IS AVAILABLE AT [facility] FOR TRANSFER. CM NOTIFIED HOUSE KENA HUYNH WHO ADVISED INFANT TEACHER ALLIGATOR TRAPPER, RACQUEL, WILL APPROVE. CM WAITING ON DR. LEON TO NOTIFY DR. JESSICA OF BED AVAILABILITY FOR PT TO TRANSFER TO [facility] IN [place]. ZULLY Jaramillo DCP- Discharge Planning Updated by [id number]: Arslan Hoover on 01/25/19 8:[address] Patient Name: LB QUIJANO Admission Status: ER Accout number: [id number] Admission Date: 01-22-2019 : 1975 Admission Diagnosis: Attending: BRIGETTE TOLLIVER Current LOS: 3 Anticipated DC Date: Planned Disposition: Other Type of Facility Primary Insurance: MEDICAID [place] PLANNED EXTERNAL PROVIDER: [facility] Discharge Planning Comments: CM MET WITH PT AND [facility] IN ROOM TO DISCUSS DISCHARGE PLANNING AND NEEDS. PT REPORTS CURRENTLY BEING IN THE [facility] FOR 30 DAYS. PT HAS NO MEDICAL EQUIPMENT AND NO OUTSIDE SERVICES ASSISTING IN THE HOME. CM DISCUSSED AVAILABILITY OF HOME HEALTH, REHAB SERVICES AND MEDICAL EQUIPMENT. PT DENIES DISCHARGE NEEDS, REPORTS HE IS RETURNING TO [facility] TO COMPLETE HIS SENTENCE AT HOSPITAL DISCHARGE. PT TO RETURN TO [facility] AT DISCHARGE, IN CUSTODY OF [facility] DEPARTMENT. Draftsperson: Arslan Hoover DCPIA - Discharge Planning Initial Assessment Updated by [email or web address]: Arslan Hoover on 01/25/19 9:04 am * Is the patient Alert and Oriented? Yes * How many steps to enter\\exit or inside your home? NONE * PCP NONE - REPORTS HAD APPOINTMENT WITH [facility] BUT DID NOT MAKE IT DUE TO BEING "LOCKED UP" * Pharmacy [facility] * Preadmission Environment Other * Other Environment [facility] * Facility Name [facility] * ADLs Independent * Equipment None * Other Equipment NONE * List name and contact numbers for known caregivers / representatives who currently or will assist patient after discharge: NANCY QUIJANO, MOTHER, * Verbal permission to speak to the caregivers and representatives has been obtained from the patient. N/A * Community resources currently utilized None * Please name any agencies selected above. NONE * Additional services required to return to the preadmission environment? No * Can the patient safely return to the preadmission environment? Yes * Has this patient been hospitalized within the prior 30 days at any hospital? No Last DP export: 01/25/19 3:11 p Patient Name: LB QUIJANO Page 66584 at 0841 All edits/amendments must be made on the electronic document DICTATION DATE: 01/28/19839 GLASS CHECKER: ALE 01/28/19839 RPT#: [id number] DC DATE:01/27/19 STATUS: DIS IN [address] [address] END OF REPORT
== END 2019-01-27 10:30 | disposition left against medical advice (07) | DRG 286 ==
LOC: D.ER 19:56 → D.M2 22:53 → OBSVTIME 22:53 → D.M2 01-22 12:28
PROVIDERS: Family Medicine; Internal Medicine Cardiovascular Disease; Internal Medicine Interventional Cardiology; ADMIT Internal Medicine Nephrology; ATTEND Internal Medicine Nephrology
PROC: B31S1ZZ Fluoroscopy of Right Pulmonary Artery using Low Osmolar Contrast (ICD-10-PCS; 2019-01-24)
PROC: 4A033BC Measurement of Arterial Pressure, Coronary, Percutaneous Approach (ICD-10-PCS; 2019-01-24)
PROC: 4A023N6 Measurement of Cardiac Sampling and Pressure, Right Heart, Percutaneous Approach (ICD-10-PCS; principal; 2019-01-24 12:37)
PROC: B2141ZZ Fluoroscopy of Right Heart using Low Osmolar Contrast (ICD-10-PCS; 2019-01-24 12:37)
DX: I08.2 Rheumatic disorders of both aortic and tricuspid valves (principal); I50.23 Acute on chronic systolic (congestive) heart failure; I27.0 Primary pulmonary hypertension; I25.110 Atherosclerotic heart disease of native coronary artery with unstable angina pectoris; F17.213 Nicotine dependence, cigarettes, with withdrawal; I11.0 Hypertensive heart disease with heart failure; F10.10 Alcohol abuse, uncomplicated

== ENCOUNTER 2020-01-10 22:08 | Emergency (ER) | payer MEDICAID ==
[~2020-01-10] VITALS: Ht 165.1 cm; Wt 70.5 kg
[2020-01-10 22:38] VITALS: Ht 165.1 cm; Wt 70.5 kg
[2020-01-10 23:17] LABS: BASOPHILS 0.4 % (0-2); EOSINOPHILS 0.4 % (0-7); HEMATOCRIT 46.7 % (42.0-54.0); HEMOGLOBIN 15.7 g/dL (13.5-17.5); IMMATURE GRANULOCYTES 0.2 % (0-5); LYMPHOCYTES 30.6 % (15-50); MCH 30.5 pg (26.0-34.0); MCHC 33.6 g/dL (31.0-37.0); MCV 90.7 fL (80.0-100.0); MEAN PLATELET VOLUME 10.1 fL (7.4-10.4); MONOCYTES 10.4 % (2-11); PLATELET COUNT 306 10x3/uL (130-400); RBC 5.15 10x6/uL (4.20-6.10); RDW 12.7 % (11.5-14.5); WBC 5.7 10x3/uL (4.8-10.8)
[2020-01-10 23:27] LABS: APTT 29.6 SECONDS (22.8-39.4); INR 1.16 (0.85-1.17); PROTIME 14.8 SECONDS (11.6-15.0)
[2020-01-10 23:30] LABS: CALC OSMOLALITY 280 mosm/kg (275-300); CALCIUM 8.6 mg/dL (8.5-10.1); CARBON DIOXIDE 25.4 mmol/L (21.0-32.0); CHLORIDE - SERUM 103 mmol/L (98-107); CREATININE - SERUM 1.6 mg/dL (0.6-1.3); GLUCOSE 90 mg/dL (74-106); POTASSIUM - SERUM 4.6 mmol/L (3.5-5.1); SODIUM 139 mmol/L (136-145); UREA NITROGEN 22 mg/dL (7-18); eGFR NON AFRICAN AMERICAN 50 mL/min (90-120)
[2020-01-10 23:46] LABS: ALBUMIN 3.4 g/dL (3.4-5.0); ALKALINE PHOSPHATASE 61 U/L (30-120); ALT (SGPT) 26 U/L (10-68); BILIRUBIN - TOTAL 2.22 mg/dL (0.2-1.3); CKMB 1.4 U/L (0.0-3.6); CREATINE KINASE 201 UL (21-232); MAGNESIUM - SERUM 1.9 mg/dL (1.8-2.4); PRO BNP 14562 pg/mL (0-125); PROTEIN - SERUM 7.3 g/dL (6.4-8.2); TROPONIN-I 0.023 ng/mL (0.000-0.060)
[2020-01-11] MEDS ORDERED: LASIX40 MG PO (00:37)
[2020-01-11] MEDS ORDERED: K-DUR20 MEQ PO (00:37)
[2020-01-11 01:10] VITALS: BP 125/56
== END 2020-01-11 01:10 | disposition home or self-care (01) ==
LOC: D.ER 22:08
PROVIDERS: Family Medicine
DX: I11.0 Hypertensive heart disease with heart failure (principal); I50.9 Heart failure, unspecified; I51.7 Cardiomegaly; J44.9 Chronic obstructive pulmonary disease, unspecified; Z91.14 Patient's other noncompliance with medication regimen; R06.02 Shortness of breath; I25.2 Old myocardial infarction

== ENCOUNTER 2020-02-14 13:44 | Inpatient (IN) | payer MEDICAID ==
[~2020-02-14] VITALS: Ht 165.1 cm; Wt 77.0 kg
[2020-02-14 14:36] LABS: CALC OSMOLALITY 276 mosm/kg (275-300); CALCIUM 8.9 mg/dL (8.5-10.1); CARBON DIOXIDE 23.8 mmol/L (21.0-32.0); CHLORIDE - SERUM 101 mmol/L (98-107); GLUCOSE 113 mg/dL (74-106); POTASSIUM - SERUM 5.1 mmol/L (3.5-5.1); SODIUM 135 mmol/L (136-145); UREA NITROGEN 28 mg/dL (7-18); eGFR NON AFRICAN AMERICAN 39 mL/min (90-120)
[2020-02-14 14:53] LABS: ALBUMIN 3.5 g/dL (3.4-5.0); ALKALINE PHOSPHATASE 64 U/L (30-120); ALT (SGPT) 19 U/L (10-68); BILIRUBIN - TOTAL 2.29 mg/dL (0.2-1.3); CKMB 2.4 U/L (0.0-3.6); CREATINE KINASE 273 UL (21-232); PRO BNP 20400 pg/mL (0-125); PROTEIN - SERUM 7.2 g/dL (6.4-8.2)
[2020-02-14 14:56] LABS: TROPONIN-I < 0.017 ng/mL (0.000-0.060)
[2020-02-14 15:21] VITALS: BP 129/64
[2020-02-14 16:02] LABS: BASOPHILS 0.2 % (0-2); EOSINOPHILS 0.2 % (0-7); HEMATOCRIT 46.6 % (42.0-54.0); HEMOGLOBIN 15.6 g/dL (13.5-17.5); IMMATURE GRANULOCYTES 0.2 % (0-5); LYMPHOCYTES 28.9 % (15-50); MCH 29.7 pg (26.0-34.0); MCHC 33.5 g/dL (31.0-37.0); MCV 88.8 fL (80.0-100.0); MEAN PLATELET VOLUME 10.5 fL (7.4-10.4); MONOCYTES 10.3 % (2-11); NEUTROPHILS 60.2 % (40-80); PLATELET COUNT 316 10x3/uL (130-400); RBC 5.25 10x6/uL (4.20-6.10); RDW 13.3 % (11.5-14.5); WBC 5.8 10x3/uL (4.8-10.8)
[2020-02-14 16:08] VITALS: BP 148/61
[2020-02-14 16:08] LABS: APTT 32.9 SECONDS (22.8-39.4); INR 1.3 (0.85-1.17); PROTIME 16.1 SECONDS (11.6-15.0)
[2020-02-14 17:09] VITALS: BP 146/63
[2020-02-14] MEDS ORDERED: MUCINEX600 MG PO (18:17)
--- NOTE | 2020-02-14 18:34 | NUR ---
PT ARRIVED TO FLOOR VIA . ALERT AND ORIENTED. UP AD DOMINGUEZ TO BED. PT HAS $902 IN [place] AND WANTS TO SEND TO [place]. CALLED FEMI AND SHE STATES SHE WILL COME UP HERE IN A LITTLE BIT TO PUT MONEY IN [place]. I VERBALIZED UNDERSTANDING AND STATED THIS TO PT AND HE VERBALIZED UNDERSTANDING. MED REC AND ADMISSION HX COMPLETED.
--- NOTE | 2020-02-14 18:55 | NUR ---
[facility] STATES TO ME THERE IS NO BODY HERE TO PUT PT'S MOENY IS [place] UNTIL TOMORROW MORNING. STATED THIS TO PT AND HE VERBALIZED UNDERSTANDING.
--- NOTE | 2020-02-14 19:16 | NUR ---
REGISTRATION IN ROOM TO COUNT PATIENT MONEY TO PUT IN [place]AFE. PATIENT IS AAOX4, SITTING UP IN BED. NO S/S OF DISTRESS OBSERVED, RR EVEN AND UNLABORED ON ROOM AIR. PIV TO RT AC, SL. PATIENT DENIES NEEDS AT THIS TIME. CL IN REACH, BED LOCKED AND LOWERED. BOARD UPDATED. WILL CTM.
[2020-02-14 20:00] VITALS: BP 145/50
[2020-02-15] VITALS: BP 134/65
[2020-02-15 04:00] VITALS: BP 135/59
[2020-02-15 06:10] LABS: BASOPHILS 0.5 % (0-2); EOSINOPHILS 1.1 % (0-7); HEMATOCRIT 45.4 % (42.0-54.0); HEMOGLOBIN 14.9 g/dL (13.5-17.5); IMMATURE GRANULOCYTES 0.2 % (0-5); LYMPHOCYTES 35.2 % (15-50); MCH 29.2 pg (26.0-34.0); MCHC 32.8 g/dL (31.0-37.0); MEAN PLATELET VOLUME 10.4 fL (7.4-10.4); MONOCYTES 12.1 % (2-11); NEUTROPHILS 50.9 % (40-80); PLATELET COUNT 329 10x3/uL (130-400); RDW 13.4 % (11.5-14.5); WBC 5.6 10x3/uL (4.8-10.8)
[2020-02-15 07:01] LABS: ALBUMIN 3.3 g/dL (3.4-5.0); BILIRUBIN - TOTAL 2.15 mg/dL (0.2-1.3); CALCIUM 9.1 mg/dL (8.5-10.1); CARBON DIOXIDE 25.6 mmol/L (21.0-32.0); CREATININE - SERUM 1.7 mg/dL (0.6-1.3); POTASSIUM - SERUM 4.6 mmol/L (3.5-5.1); PROTEIN - SERUM 6.6 g/dL (6.4-8.2)
[2020-02-15 09:00] VITALS: BP 144/61
[2020-02-15 13:07] VITALS: Ht 165.1 cm; Wt 77.0 kg
[2020-02-15 17:08] VITALS: BP 108/49
--- NOTE | 2020-02-15 19:17 | NUR ---
REPORT RECEIVED, WILL CONTINUE POC. PATIENT IS AAOX4, LYING IN SEMI-FOWLERS POSITION. NO S/S OF DISTRESS OBERVED, RR EVEN AND UNLABORED ON ROOM AIR. PATIENT DENIES NEEDS AT THIS TIME. CL IN REACH, BED LOCKED AND LOWERED. WILL CTM.
[2020-02-15 20:00] VITALS: BP 124/73
--- NOTE | 2020-02-15 22:42 | NUR ---
PROVIDER RELATIONS CONSULTANT REPORTED THAT PATIENT HAD RUN OF 5 @ 2102. PATIENT WAS ASYMPTOMATIC, VSS. WILL CTM.
[2020-02-16] VITALS: BP 119/64
--- NOTE | 2020-02-16 03:13 | NUR ---
I have reviewed this patient and I concur with the Shift Assessment completed by the Licensed Practical Nurse today this shift.
[2020-02-16 06:04] LABS: BASOPHILS 0.2 % (0-2); EOSINOPHILS 0.8 % (0-7); HEMATOCRIT 46.3 % (42.0-54.0); HEMOGLOBIN 15.2 g/dL (13.5-17.5); IMMATURE GRANULOCYTES 0.2 % (0-5); LYMPHOCYTES 31.5 % (15-50); MCH 29.2 pg (26.0-34.0); MCHC 32.8 g/dL (31.0-37.0); MEAN PLATELET VOLUME 10.3 fL (7.4-10.4); MONOCYTES 9.6 % (2-11); NEUTROPHILS 57.7 % (40-80); PLATELET COUNT 287 10x3/uL (130-400); RDW 13.3 % (11.5-14.5); WBC 5.3 10x3/uL (4.8-10.8)
[2020-02-16 06:37] LABS: ALBUMIN 3.3 g/dL (3.4-5.0); ANION GAP 13.4 mmol/L (8-16); BILIRUBIN - TOTAL 1.66 mg/dL (0.2-1.3); CALCIUM 9.1 mg/dL (8.5-10.1); CARBON DIOXIDE 28.7 mmol/L (21.0-32.0); CREATININE - SERUM 1.8 mg/dL (0.6-1.3); POTASSIUM - SERUM 4.1 mmol/L (3.5-5.1); PROTEIN - SERUM 6.8 g/dL (6.4-8.2)
--- NOTE | 2020-02-16 08:07 | MORECARE ---
CASE MANAGEMENT DISCHARGE SUMMARY PATIENT: LB QUIJANO UNIT: [id number] ADM DATE: 02/14/20 AGE: 44 : 75 SEX: M ROOM/BED: D.2106 AUTHOR: NELDA JOSEPH PHYSICIAN: REFERRING PHYSICIAN: SEDRICK JAQUEZ MD DATE OF SERVICE: 02/16/20 Discharge Plan Patient Name: LB QUIJANO Facility: [facility]:[place] : 1975 Planned Disposition: Home Anticipated Discharge Date: 02/16/20 Discharge Date: Expected LOS: 2 Initial Reviewer: [email or web address] Initial Review Date: 02/16/2020 Generated: 02/16/20 9:07 am Patient Name: LB QUIJANO Page 65917 at 0807 All edits/amendments must be made on the electronic document DICTATION DATE: 02/16/20 08 ASSISTANT CLINICAL DIRECTOR: ALE 02/16/20 08 RPT#: [id number] DC DATE: STATUS: ADM IN [facility] [address] [place] [address] END OF REPORT
--- NOTE | 2020-02-16 08:27 | MORECARE ---
CASE MANAGEMENT DISCHARGE SUMMARY PATIENT: LB HOFF UNIT: [id number] ADM DATE: 02/14/20 AGE: 44 : 75 SEX: M ROOM/BED: D.2107 AUTHOR: JAKEDOC PHYSICIAN: REFERRING PHYSICIAN: SEDRICK JAQUZE MD DATE OF SERVICE: 02/16/20 Discharge Plan Patient Name: LB HOFF Facility: [facility]:[place] : 1975 Planned Disposition: Home Anticipated Discharge Date: 02/16/20 Discharge Date: Expected LOS: 2 Initial Reviewer: [email or web address] Initial Review Date: 02/16/2020 Generated: 02/16/20 9:26 am Comments DCP- Discharge Planning Updated by [email or web address]: Ctaie Mary on 02/16/20 7:[address] Patient Name: LB HOFF Admission Status: ER Accout number: [id number] Admission Date: 02-14-2020 : 1975 Admission Diagnosis: Attending: SEDRICK JAQUEZ Current LOS: 2 Anticipated DC Date: 02-16-2020 Planned Disposition: Home Primary Insurance: MEDICAID [place] Discharge Planning Comments: CM met with patient to complete initial dc planning assessment. CM educated patient on the CM role and verbal consent given by patient to complete assessment. Patient lives at home with the mother of his 3 year old. At discharge patient plans to return and feels this is a safe discharge. CM discussed availability of home health, rehab services, and medical equipment. Patient denied known discharge needs at this time. He does not have a car at this time, states he has not had transportation to his doctor's office. I gave him written instructions with the number to the [employer] bus and to call [facility] 48 hours in advance. I told him to call as soon as he got his appointments and to give them the doctor's address and phone number. He voiced understanding. He states [facility] P[facility]. He is unsure what doctor it is. States he will have a friend take him home on discharge. CM will continue to follow and will assist as needed with dc plans/needs. Delivery Clerk: Catie Mary DCPIA - Discharge Planning Initial Assessment Updated by [id number]: Catie Mary on 02/16/20 8:07 am * Is the patient Alert and Oriented? Yes * How many steps to enter\exit or inside your home? 0/0 * PCP DE[facility] * Pharmacy [facility] * Preadmission Environment Home with Family * ADLs Independent * Equipment None * List name and contact numbers for known caregivers / representatives who currently or will assist patient after discharge: Zaira Hoff - mother - [phone] Nehal Willis - [phone] * Verbal permission to speak to the caregivers and representatives has been obtained from the patient. Yes * Community resources currently utilized None * Additional services required to return to the preadmission environment? No * Can the patient safely return to the preadmission environment? Yes * Has this patient been hospitalized within the prior 30 days at any hospital? Yes Last DP export: 02/16/20 7:07 am Patient Name: LB HOFF Page 36167 at 0827 All edits/amendments must be made on the electronic document DICTATION DATE: 02/16/20825 CANCER SPEC: ALE 02/16/20825 RPT#: [id number] DC DATE: STATUS: ADM IN [facility] [address] [place] [address] END OF REPORT
[2020-02-16 09:37] VITALS: BP 124/55
--- NOTE | 2020-02-16 11:35 | MORECARE ---
CASE MANAGEMENT DISCHARGE SUMMARY PATIENT: LB HOFF UNIT: [id number] ADM DATE: 02/14/20 AGE: 44 : 75 SEX: M ROOM/BED: D.2106 AUTHOR: JAKEDOC PHYSICIAN: REFERRING PHYSICIAN: SEDRICK JAQUEZ MD DATE OF SERVICE: 02/16/20 Discharge Plan Patient Name: LB HOFF Facility: [facility]:[place] : 1975 Planned Disposition: Home Anticipated Discharge Date: 02/16/20 Discharge Date: Expected LOS: 2 Initial Reviewer: [email or web address] Initial Review Date: 02/16/2020 Generated: 02/16/20 12:34 pm Comments DCP- Discharge Planning Updated by [email or web address]: Catie Mary on 02/16/20 10:[address] Patient Name: LB HOFF Encounter No: [id number] : 1975 Primary Insurance: MEDICAID [place] Anticipated DC Date: 02-16-2020 Planned Disposition: Home External Planned Provider: : DCP follow-up note: Patient in agreement with discharge plan. No changes to plan. Case management will follow and assist as needed. Catie Mary DCP- Discharge Planning Updated by [email or web address]: Catie Mary on 02/16/20 7:[address] Patient Name: LB HOFF Admission Status: ER Accout number: [id number] Admission Date: 02-14-2020 : 1975 Admission Diagnosis: Attending: SEDRICK JAQUEZ Current LOS: 2 Anticipated DC Date: 02-16-2020 Planned Disposition: Home Primary Insurance: MEDICAID [place] Discharge Planning Comments: CM met with patient to complete initial dc planning assessment. CM educated patient on the CM role and verbal consent given by patient to complete assessment. Patient lives at home with the mother of his 3 year old. At discharge patient plans to return and feels this is a safe discharge. CM discussed availability of home health, rehab services, and medical equipment. Patient denied known discharge needs at this time. He does not have a car at this time, states he has not had transportation to his doctor's office. I gave him written instructions with the number to the [employer] bus and to call [facility] 48 hours in advance. I told him to call as soon as he got his appointments and to give them the doctor's address and phone number. He voiced understanding. He states his PCP is at [facility] Medicaid clinic. He is unsure what doctor it is. States he will have a friend take him home on discharge. CM will continue to follow and will assist as needed with dc plans/needs. Finisher Hot Strip: Catie Usman DCPIA - Discharge Planning Initial Assessment Updated by [email or web address]: Catie Mary on 02/16/20 8:07 am * Is the patient Alert and Oriented? Yes * How many steps to enter\exit or inside your home? 0/0 * PCP [facility] * [facility] * Preadmission Environment Home with Family * ADLs Independent * Equipment None * List name and contact numbers for known caregivers / representatives who currently or will assist patient after discharge: Zaira Hoff - mother - [phone] Nehal Willis [phone] * Verbal permission to speak to the caregivers and representatives has been obtained from the patient. Yes * Community resources currently utilized None * Additional services required to return to the preadmission environment? No * Can the patient safely return to the preadmission environment? Yes * Has this patient been hospitalized within the prior 30 days at any hospital? Yes Last DP export: 02/16/20 7:27 am Patient Name: LB HOFF Page 54076 at 1135 All edits/amendments must be made on the electronic document DICTATION DATE: 02/16/20 113 SPRING FORGER: ALE 02/16/20 1134 RPT#: [id number] DC DATE: STATUS: ADM IN [facility] [address] [place] [address] END OF REPORT
--- NOTE | 2020-02-16 14:23 | NUR ---
D/C INSTRUCTIONS REVIEWED. VERBALIZED UNDERSTANDING. IV D/C WITH CATHETER TIP INTACT. DENIED WHEELCHAIR OUT. PT AMBULATED TO PERSONAL VEHICLE WITH ALL BELONGINGS WITH STEADY GAIT.
--- NOTE | 2020-02-17 09:04 | MORECARE ---
CASE MANAGEMENT DISCHARGE SUMMARY PATIENT: LB HOFF UNIT: [id number] ADM DATE: 02/14/20 AGE: 44 : 75 SEX: M ROOM/BED: D.2104 AUTHOR: JAKE,DOC PHYSICIAN: REFERRING PHYSICIAN: SEDRICK JAQUEZ MD DATE OF SERVICE: 02/17/20 Discharge Plan Patient Name: LB HOFF Facility: [facility]:[place] : 1975 Planned Disposition: Home Anticipated Discharge Date: 02/16/20 Discharge Date: 02/16/2020 Expected LOS: 2 Initial Reviewer: [email or web address] Initial Review Date: 02/16/2020 Generated: 02/17/20 10:03 am Comments DCP- Discharge Planning Updated by [email or web address]: Catie Mary on 02/16/20 10:[address] Patient Name: LB HOFF Encounter No: [id number] : 1975 Primary Insurance: MEDICAID [place] Anticipated DC Date: 02-16-2020 Planned Disposition: Home External Planned Provider: : DCP follow-up note: Patient in agreement with discharge plan. No changes to plan. Case management will follow and assist as needed. Catie Mary DCP- Discharge Planning Updated by [email or web address]: Catie Mary on 02/16/20 7:[address] Patient Name: LB HOFF Admission Status: ER Accout number: [id number] Admission Date: 02-14-2020 : 1975 Admission Diagnosis: Attending: SEDRICK JAQUEZ Current LOS: 2 Anticipated DC Date: 02-16-2020 Planned Disposition: Home Primary Insurance: MEDICAID [place] Discharge Planning Comments: CM met with patient to complete initial dc planning assessment. CM educated patient on the CM role and verbal consent given by patient to complete assessment. Patient lives at home with the mother of his 3 year old. At discharge patient plans to return and feels this is a safe discharge. CM discussed availability of home health, rehab services, and medical equipment. Patient denied known discharge needs at this time. He does not have a car at this time, states he has not had transportation to his doctor's office. I gave him written instructions with the number to the [employer] bus and to call [employer] 48 hours in advance. I told him to call as soon as he got his appointments and to give them the doctor's address and phone number. He voiced understanding. He states his PCP is at [facility] clinic. He is unsure what doctor it is. States he will have a friend take him home on discharge. CM will continue to follow and will assist as needed with dc plans/needs. Machine Adjuster Helper: Catie Usman DCPIA - Discharge Planning Initial Assessment Updated by [email or web address]: Catie Mary on 02/16/20 8:07 am * Is the patient Alert and Oriented? Yes * How many steps to enter\exit or inside your home? 0/0 * PCP [facility] * [facility] * Preadmission Environment Home with Family * ADLs Independent * Equipment None * List name and contact numbers for known caregivers / representatives who currently or will assist patient after discharge: Zaira Hoff - mother - [phone] Nehal Lazaro [phone] * Verbal permission to speak to the caregivers and representatives has been obtained from the patient. Yes * Community resources currently utilized None * Additional services required to return to the preadmission environment? No * Can the patient safely return to the preadmission environment? Yes * Has this patient been hospitalized within the prior 30 days at any hospital? Yes Last DP export: 02/16/20 10:35 am Patient Name: LB HOFF Page [id number] at 0904 All edits/amendments must be made on the electronic document DICTATION DATE: 02/17/20902 SALES AGENT: ALE 02/17/20902 RPT#: [id number] DC DATE:02/16/20 STATUS: DIS IN [facility] [address] [place] [address] END OF REPORT
== END 2020-02-16 14:24 | disposition home or self-care (01) | DRG 291 ==
LOC: D.ER 13:44 → D.M2 17:19
PROVIDERS: Family Medicine; ADMIT Emergency Medicine; ATTEND Emergency Medicine
DX: I13.0 Hypertensive heart and chronic kidney disease with heart failure and stage 1 through stage 4 chronic kidney disease, or unspecified chronic kidney disease (principal); I50.33 Acute on chronic diastolic (congestive) heart failure; N17.9 Acute kidney failure, unspecified; I42.9 Cardiomyopathy, unspecified; J44.9 Chronic obstructive pulmonary disease, unspecified; I08.2 Rheumatic disorders of both aortic and tricuspid valves; I27.20 Pulmonary hypertension, unspecified; K21.9 Gastro-esophageal reflux disease without esophagitis; J30.9 Allergic rhinitis, unspecified; F12.10 Cannabis abuse, uncomplicated; N18.9 Chronic kidney disease, unspecified; Z72.89 Other problems related to lifestyle; Z87.891 Personal history of nicotine dependence

== ENCOUNTER → 2020-06-26 11:01 | Outpatient (CLI) | payer MEDICAID ==
[2020-02-15 13:07] VITALS: BMI 28.2
--- NOTE | 2020-06-27 10:43 | EC ---
PATIENT:LB QUIJANO DATE OF SERVICE: 06/26/20 SEX: M MEDICAL RECORD: [id number] DATE OF : [birth year] [facility] AGE [facility] PAT[facility]: 44 ADMISSION DATE: 06/26/20 REFERRING PHYSICIAN: INTERPRETING PHYSICIAN: SÁNCHEZ PIZARRO MD ECHOCARDIOGRAM REPORT ECHO CHARGES 4 ECHO COMPLETE Date: 06/26/20 CLINICAL DIAGNOSIS: AORITC, MITRAL, TRICUSPID REGURG, HX OF CARDIOMYOPATHY ECHOCARDIOGRAPHIC MEASUREMENTS (adult normal given) AC root (d.<3.7cm) 3.9 cm LV Septum d (<1.2 cm> 1.6 cm Valve Excursion 1.9 cm LV Septum (systole) 1.7 cm Left Atria (s.<4.0cm> 5.1 cm LVPW d(<1.2cm) 1.5 cm RV (d.<2.3cm) 6.0 cm LVPW (sytole) 1.7 cm LV diastole(<5.6CM) 7.0 cm MV E-F(>70mm/sec) cm LV systole 4.8 cm LVOT Diameter 2.2 cm MV exc.(>10mm) 1.8 cm Est.ejection fraction (50-75%) % DOPPLER: LVIT cm/sec A 75.0 cm/sec E 128.0 cm/sec LA cm/sec RVSP 61 mmHg LVOT 136 cm/sec AOP1/2T 178 m/s Asc. Ao 226 cm/sec RVOT 64 cm/sec RA cm/sec PA 149 cm/sec AV Gradient Peak 20.35mmHg AV Mean 12.55mmHg AV Area 2.3 cm MV Gradient Peak 14.16mmHg MV Mean 4.92 mmHg MV Area cm COMMENTS: Blueprint Trimmer: 2 JASON SARAH Adz Worker: 3 Dr. Bonilla TAPE# PACS Pericardial Effusion N DATE OF SERVICE: Adequate 2D, color-flow imaging, spectral Doppler, and M-Mode LVH is present. LV internal dimensions are dilated. LV appears to be mildly globally hypo with EF lower limits of normal, mildly reduced estimated EF 45% to 50%. Aortic valve is tricuspid with poor valve coaptation and severe MR. Left atrium is dilated. Mitral valve shows no prolapse. Moderate MR. Right-sided chambers are grossly normal. [id number] TR. ECHOCARDIOGRAM REPORT [id number] LB QUIJANO TRANSINT:[id number] Voice Confirmation ID: [id number] DOCUMENT ID: [id number] SÁNCHEZ PIZARRO MD at 1043 CC: [id number] DICTATION DATE: 06/26/20 1302 POULTRY DEBEAKER: 06/26/20 1509 DEP CLI 06/26/20 [place] [id number] [place] [id number]
== END | disposition home or self-care (01) ==
LOC: D.HCCECHO 11:01
PROVIDERS: ATTEND Internal Medicine Interventional Cardiology
DX: I35.1 Nonrheumatic aortic (valve) insufficiency (principal)

== ENCOUNTER → 2020-11-16 12:12 | Outpatient (CLI) | payer MEDICARE, MEDICAID ==
[2020-09-17 22:23] VITALS: BMI 26.6
[~2020-11-16 12:12] MED LIST changes: +ALBUTEROL2.5 MG/3 M UPD; +ALDACTONE25 MG PO; +BETAPACE 80 MG80 MG PO; +BETAPACE160 MG PO; +CARDIZEM60 MG PO; +COZAAR50 MG PO; +Coumadin [PBKC] PO; +HEMOCYTE PLUS C1 CAP PO; +LANOXIN125 MCG PO; +PERCOCET 5-3251 TAB PO; +PROTONIX40 MG PO; +SYNTHROID25 MCG PO
[2020-11-16 12:54] LABS: INR 3.59 (0.85-1.17); PROTIME 33.4 SECONDS (11.6-15.0)
== END | disposition home or self-care (01) ==
LOC: D.LAB 12:12
PROVIDERS: ATTEND Thoracic Surgery (Cardiothoracic Vascular Surgery)
DX: T82.01XA Breakdown (mechanical) of heart valve prosthesis, initial encounter (principal)

== ENCOUNTER → 2020-11-22 12:43 | Outpatient (CLI) | payer MEDICARE, MEDICAID ==
[2020-09-17 22:23] VITALS: BMI 26.6
[2020-11-22 13:24] LABS: INR 1.58 (0.85-1.17); PROTIME 17.5 SECONDS (11.6-15.0)
== END | disposition home or self-care (01) ==
LOC: D.LAB 12:43
PROVIDERS: ATTEND Thoracic Surgery (Cardiothoracic Vascular Surgery)
DX: I35.8 Other nonrheumatic aortic valve disorders (principal)

== ENCOUNTER → 2020-11-27 15:45 | Outpatient (CLI) | payer MEDICARE, MEDICAID ==
[2020-09-17 22:23] VITALS: BMI 26.6
[2020-11-27 17:04] LABS: INR 4.4 (0.85-1.17); PROTIME 39.2 SECONDS (11.6-15.0)
== END | disposition home or self-care (01) ==
LOC: D.LAB 15:45
PROVIDERS: ATTEND Thoracic Surgery (Cardiothoracic Vascular Surgery)
DX: T82.01XA Breakdown (mechanical) of heart valve prosthesis, initial encounter (principal)

== ENCOUNTER → 2020-12-04 11:33 | Outpatient (CLI) | payer MEDICARE, MEDICAID ==
[2020-09-17 22:23] VITALS: BMI 26.6
[2020-12-04 13:05] LABS: INR 2.72 (0.85-1.17); PROTIME 26.9 SECONDS (11.6-15.0)
== END | disposition home or self-care (01) ==
LOC: D.LAB 11:33
PROVIDERS: ATTEND Thoracic Surgery (Cardiothoracic Vascular Surgery)
DX: T82.09XA Other mechanical complication of heart valve prosthesis, initial encounter (principal)

== ENCOUNTER → 2021-01-08 15:08 | Outpatient (CLI) | payer MEDICARE, MEDICAID ==
[2020-09-17 22:23] VITALS: BMI 26.6
[2021-01-08 15:40] LABS: INR 1.74 (0.85-1.17); PROTIME 18.9 SECONDS (11.6-15.0)
== END | disposition home or self-care (01) ==
LOC: D.LAB 15:08
PROVIDERS: ATTEND Thoracic Surgery (Cardiothoracic Vascular Surgery)
DX: I47.1 Supraventricular tachycardia (principal)

== ENCOUNTER → 2021-01-17 15:31 | Outpatient (CLI) | payer MEDICARE, MEDICAID ==
[2020-09-17 22:23] VITALS: BMI 26.6
[2021-01-17 16:05] LABS: INR 2.39 (0.85-1.17); PROTIME 24.2 SECONDS (11.6-15.0)
== END | disposition home or self-care (01) ==
LOC: D.LAB 15:31
PROVIDERS: ATTEND Thoracic Surgery (Cardiothoracic Vascular Surgery)
DX: Z95.4 Presence of other heart-valve replacement (principal)